=== PATIENT | male | born 1970 | race Caucasian/White ===

== ENCOUNTER 2016-07-31 14:47 | Observation (INO) | payer OTHER ==
[~2016-07-31] VITALS: Ht 182.9 cm; Wt 155.4 kg
[2016-07-31] VITALS (9 sets, daily range): BP systolic 103–155; BP diastolic 60–119; PULSE 77–99; RESP 18–20; TEMP 96.7–98.8; O2SAT 97–100
[~2016-07-31 14:47] MED LIST: ALBU6.7H INH; HYDR-3580 PO; LISI-360 PO; SYMB160A INH
[2016-07-31] MEDS ORDERED: AMLO10 PO (15:05)
[2016-07-31] MEDS ORDERED: ASPI-110 PO (15:05)
[2016-07-31] MEDS ORDERED: IPRASOL INH (15:05)
[2016-07-31] MEDS ORDERED: LISI10TA3 PO (15:05)
[2016-07-31] MEDS ORDERED: ASPIRIN 81 MG CHEW TAB PO ONE (15:15)
--- NOTE | 2016-07-31 15:20 | PD ---
HPI Chief Complaint: Chest Pain Time Seen by Provider: 15:08 Travel History International Travel<30 days: No Contact w/Intl Traveler<30days: No Traveled to known affect area: No History of Present Illness HPI 45-year-old male with history of hypertension, here for evaluation of substernal chest pain. The patient reports that the pain started about 1-2 hours ago while at rest. He describes the pain as sharp/pressure-like and radiates to his left chest. Pain is worse with exertion, currently 9 out of 10. He feels slight dyspnea. He is a former smoker, quitting 4 years ago. Denies known history of coronary artery disease. No paresthesias or motor deficits. History of DVT or PE. PFSH Past Medical History Asthma: Yes Blood Disorders: No Depression: Yes Cancer: No Cardiomyopathy: Yes Cardiovascular Problems: No Congestive Heart Failure: Yes COPD: Yes Diminished Hearing: No Gastrointestinal Disorders: No Genitourinary: No Headaches: Yes Musculoskeletal: Yes Neurologic: Yes Reproductive: No Respiratory: Yes (CHRONIC BRONCHITIS) Immunizations Current: Yes Migraines: Yes Seizures: Yes Influenza Vaccination: Yes PNEUMOCCOCAL Vaccine (Year): 2 Past Surgical History AICD: No Arteriovenous Shunt: No Body Medical Devices: IMPLANT FOR MIGRAINES Insulin Pump: No Joint Replacement: No Neurologic Surgery: Yes (BRAIN IMPLANT FOR MIGRAINES-HAS BEEN REMOVED) Pacemaker: No Other Surgery: Yes (REMOVAL OF BRAIN IMPLANT BECAUSE IT CAUSED SEIZURES) Social History Alcohol Use: No Tobacco Use: No Substance Use: No Allergies-Medications (Allergen,Severity, Reaction): Coded Allergies: Caffeine (Verified Allergy, Severe, RASH, 07/31/16) Codeine (Verified Allergy, Severe, Itching, 07/31/16) Darvon (Verified Allergy, Severe, ABD. CRAMS, 07/31/16) Reported Meds & Prescriptions Reported Meds & Active Scripts Active Reported Duoneb (Ipratropium-Albuterol Neb) 0.5-2.5 Mg/3 Ml Neb 1 Nebule INH Q6HR NEB Aspirin 81 (Aspirin) 81 Mg Tabdr 81 Mg PO DAILY Norvasc (Amlodipine Besylate) 10 Mg Tab 10 Mg PO DAILY Lisinopril 10 Mg Tab 10 Mg PO DAILY Review of Systems Except as stated in HPI: all other systems reviewed are Neg Physical Exam Narrative GENERAL: Well-developed, well-nourished, overweight, mild distress secondary to pain, no respiratory distress. SKIN: Focused skin assessment warm/dry. HEAD: Atraumatic. Normocephalic. EYES: Pupils equal and round. No scleral icterus. No injection or drainage. ENT: Mucous membranes pink and moist. NECK: Trachea midline. No JVD. CARDIOVASCULAR: Regular rate and rhythm. Distal pulses brisk and equal bilaterally. RESPIRATORY: No accessory muscle use. Clear to auscultation. Breath sounds equal bilaterally. GASTROINTESTINAL: Abdomen soft, non-tender, nondistended. MUSCULOSKELETAL: No obvious deformities. No clubbing. No cyanosis. No edema. Bilateral calves are supple, nontender. NEUROLOGICAL: Awake and alert. No obvious cranial nerve deficits. Motor grossly within normal limits. Normal speech. PSYCHIATRIC: Appropriate mood and affect; insight and judgment normal. Data Data Last Documented VS Vital Signs Date Time Temp Pulse Resp B/P Pulse Ox O2 Delivery O2 Flow Rate FiO2 07/31/16 16:00 77 18 103/77 97 Room Air 07/31/16 14:55 98.8 Orders Basic Metabolic Panel (Bmp) (07/31/16 15:15) Ckmb (Isoenzyme) Profile (07/31/16 15:15) Complete Blood Count With Diff (07/31/16 15:15) Magnesium (Mg) (07/31/16 15:15) Prothrombin Time / Inr (Pt) (07/31/16 15:15) Act Partial Throm Time (Ptt) (07/31/16 15:15) Troponin I (07/31/16 15:15) Chest, Single Ap (07/31/16 15:15) Ecg Monitoring (07/31/16 15:15) Bilateral Bp Monitoring (07/31/16 15:15) Iv Access Insert/Monitor (07/31/16 15:15) Oximetry (07/31/16 15:15) Oxygen Administration (07/31/16 15:15) Aspirin Chew (Aspirin Chew) (07/31/16 15:15) Sodium Chloride 0.9% Flush (Ns Flush) (07/31/16 15:15) Nitroglycerin Sl (Nitrostat Sl) (07/31/16 15:15) Electrocardiogram (07/31/16 14:50) Morphine Inj (Morphine Inj) (07/31/16 16:15) Ct Pulmonary Angiogram (07/31/16 16:08) B-Type Natriuretic Peptide (07/31/16 16:09) Labs Laboratory Tests Test 07/31/16 15:05 White Blood Count 8.5 TH/MM3 Red Blood Count 4.50 MIL/MM3 Hemoglobin 14.3 GM/DL Hematocrit 41.5 % Mean Corpuscular Volume 92.4 FL Mean Corpuscular Hemoglobin 31.7 PG Mean Corpuscular Hemoglobin 34.4 % Concent Red Cell Distribution Width 12.7 % Platelet Count 224 TH/MM3 Mean Platelet Volume 9.9 FL Neutrophils (%) (Auto) 64.1 % Lymphocytes (%) (Auto) 25.9 % Monocytes (%) (Auto) 7.3 % Eosinophils (%) (Auto) 2.0 % Basophils (%) (Auto) 0.7 % Neutrophils # (Auto) 5.4 TH/MM3 Lymphocytes # (Auto) 2.2 TH/MM3 Monocytes # (Auto) 0.6 TH/MM3 Eosinophils # (Auto) 0.2 TH/MM3 Basophils # (Auto) 0.1 TH/MM3 CBC Comment DIFF FINAL Differential Comment Prothrombin Time 11.4 SEC Prothromb Time International 1.0 RATIO Ratio Activated Partial 26.4 SEC Thromboplast Time Sodium Level 141 MEQ/L Potassium Level 3.8 MEQ/L Chloride Level 106 MEQ/L Carbon Dioxide Level 27.4 MEQ/L Anion Gap 8 MEQ/L Blood Urea Nitrogen 10 MG/DL Creatinine 0.90 MG/DL Estimat Glomerular Filtration 90 ML/MIN Rate Random Glucose 109 MG/DL Calcium Level 8.7 MG/DL Magnesium Level 2.0 MG/DL Total Creatine Kinase 64 U/L Troponin I LESS THAN 0.02 NG/ML MDM Medical Decision Making Medical Screen Exam Complete: Yes Emergency Medical Condition: Yes Medical Record Reviewed: Yes Interpretation(s) EKG: Sinus, rate 92, normal axis, normal intervals, no acute ischemic abnormality. Differential Diagnosis ACS, pneumothorax, pericarditis, PE, pneumonia Narrative Course Initial vital signs show heart rate 98, blood pressure 155/119, pulse ox 100% on room air, oral temp of 98.8F. CBC is unremarkable. BMP is unremarkable. Cardiac enzymes are negative. Chest x-ray: Mild interstitial edema with minimal cardiomegaly consistent with congestive failure. Patient is still complaining of substernal chest pain that is sharp and pleuritic despite receiving [address] pulmonary angiogram will be ordered to rule out PE. BNP was also ordered. Approximate 4:00 PM at the end of my shift the patient was signed out to oncoming provider Dr. Rubio who will follow up with CT pulmonary angiogram and will disposition the patient. Zack Mckeon MD July 31, 2016 15:20
[2016-07-31 15:34] LABS: AUTOMATED NEUTROPHIL # 5.4 TH/MM3 (1.8-7.7); BASOPHIL # 0.1 TH/MM3 (0-0.2); BASOPHIL % 0.7 % (0.0-2.0); EOSINOPHIL # 0.2 TH/MM3 (0-0.4); HEMATOCRIT 41.5 % (39.0-51.0); HEMO FLAGS DIFF FINAL; LYMPH % 25.9 % (9.0-44.0); LYMPHOCYTE # 2.2 TH/MM3 (1.0-4.8); MEAN CELL VOLUME 92.4 FL (80.0-100.0); MEAN CORPUSCULAR HEMOGLOBIN 31.7 PG (27.0-34.0); MEAN CORPUSCULAR HGB CONC 34.4 % (32.0-36.0); MONO % 7.3 % (0.0-8.0); NEUT % 64.1 % (16.0-70.0); PLATELET COUNT 224 TH/MM3 (150-450); RED CELL DISTRIBUTION WIDTH 12.7 % (11.6-17.2); WHITE BLOOD COUNT 8.5 TH/MM3 (4.0-11.0)
[2016-07-31] MEDS: NITROGLYCERIN 0.4 MG SL 25 TABS/BTL SL SCH ×3 (15:35→15:59)
[2016-07-31 15:51] LABS: CHLORIDE 106 MEQ/L (98-107); POTASSIUM 3.8 MEQ/L (3.5-5.1); SODIUM (NA) 141 MEQ/L (136-145)
--- NOTE | 2016-07-31 15:53 | RADHPO ---
EXAM DATE/TIME: 07/31/2016 15:45 [facility] COMPARISON: No previous studies available for comparison. INDICATIONS : Chest pain. MEDICAL HISTORY : Congestive heart failure. Chronic obstructive pulmonary disease. SURGICAL HISTORY : None. ENCOUNTER: Initial ACUITY: 1 day PAIN SCORE: 9/10 LOCATION: Bilateral chest FINDINGS: There is mild interstitial edema evident. There is minimal cardiomegaly. There is no pneumothorax. CONCLUSION: Mild interstitial edema with minimal cardiomegaly consistent with congestive failure. Kj Collazo MD FACR on July 31, 2016 at 15:50 Board Certified Radiologist. This report was verified electronically.
[2016-07-31 15:54] LABS: ANION GAP 8 MEQ/L (5-15); BICARBONATE 27.4 MEQ/L (21.0-32.0)
[2016-07-31 15:55] LABS: APTT (PATIENT) 26.4 SEC (24.3-30.1); BLOOD UREA NITROGEN 10 MG/DL (7-18); PROTHROMBIN TIME - PATIENT 11.4 SEC (9.8-11.6)
[2016-07-31 15:58] LABS: GLOMERULAR FILTRATION RATE 90 ML/MIN (>89)
[2016-07-31 16:02] LABS: CREATINE KINASE 64 U/L (39-308)
[2016-07-31] MEDS ORDERED: MORPHINE SULFATE 4 MG/ML INJ IV PUSH ONE (16:15)
[2016-07-31] MEDS ORDERED: ONDANSETRON HCL 4 MG/2 ML VIAL IV PUSH ONE (16:15)
[2016-07-31] MEDS: SODIUM CHLORIDE 0.9% FLUSH 10 ML FLUSH IVF PRN (16:16)
[2016-07-31] MEDS ORDERED: IOHEXOL 350 MG/ML 10 ML VIAL (for RAD DIAG) IV ONE (16:57)
--- NOTE | 2016-07-31 17:13 | RADHPO ---
EXAM DATE/TIME: 07/31/2016 16:43 [facility] COMPARISON: No previous studies available for comparison. INDICATIONS : Chest pain. IV CONTRAST: 80 cc Omnipaque 350 (iohexol) IV RADIATION DOSE: 21.73 CTDIvol (mGy) MEDICAL HISTORY : Congestive heart failure. Chronic obstructive pulmonary disease. Seizures. Asthma. SURGICAL HISTORY : None. ENCOUNTER: Initial ACUITY: 1 day PAIN SCALE: 5/10 LOCATION: Left chest TECHNIQUE: Volumetric scanning of the chest was performed using a pulmonary embolism protocol MIP images were re constructed. Using automated exposure control and adjustment of the mA and/or kV according to patien t size, radiation dose was kept as low as reasonably achievable to obtain optimal diagnostic quality images. FINDINGS: Scattered areas of pleural thickening are seen in the right lung. The left lung is clear. There is no axillary adenopathy. There is no mediastinal adenopathy. There is no evidence for central pulmonary emboli. Portion of the liver and spleen identified are free of focal defects. CONCLUSION: There is no evidence for central pulmonary emboli. Kj Collazo MD FACR on July 31, 2016 at 17:05 Board Certified Radiologist. This report was verified electronically.
--- NOTE | 2016-07-31 17:18 | PD ---
Physical Exam Date Seen by Provider: July 31, 2016 Time Seen by Provider: 17:17 Narrative This 45-year-old male had presented with complaint of chest pain. He was seen initially by Dr. gould. His EKG is unremarkable. Troponin is normal. There is a component pleuritic component to the pain and a CTA was ordered to assess for possible pulmonary embolus. A CTA has been read as negative. His chest x- ray has been read as possible CHF but his BNP is normal. Patient's pain has improved but he is still having some residual pain. He will be admitted to chest pain center for further evaluation Data Data Last Documented VS Vital Signs Date Time Temp Pulse Resp B/P Pulse Ox O2 Delivery O2 Flow Rate FiO2 07/31/16 16:00 77 18 103/77 97 Room Air 07/31/16 14:55 98.8 Orders Basic Metabolic Panel (Bmp) (07/31/16 15:15) Ckmb (Isoenzyme) Profile (07/31/16 15:15) Complete Blood Count With Diff (07/31/16 15:15) Magnesium (Mg) (07/31/16 15:15) Prothrombin Time / Inr (Pt) (07/31/16 15:15) Act Partial Throm Time (Ptt) (07/31/16 15:15) Troponin I (07/31/16 15:15) Chest, Single Ap (07/31/16 15:15) Ecg Monitoring (07/31/16 15:15) Bilateral Bp Monitoring (07/31/16 15:15) Iv Access Insert/Monitor (07/31/16 15:15) Oximetry (07/31/16 15:15) Oxygen Administration (07/31/16 15:15) Aspirin Chew (Aspirin Chew) (07/31/16 15:15) Sodium Chloride 0.9% Flush (Ns Flush) (07/31/16 15:15) Nitroglycerin Sl (Nitrostat Sl) (07/31/16 15:15) Electrocardiogram (07/31/16 14:50) Morphine Inj (Morphine Inj) (07/31/16 16:15) Ct Pulmonary Angiogram (07/31/16 16:08) B-Type Natriuretic Peptide (07/31/16 16:09) Ondansetron Inj (Zofran Inj) (07/31/16 16:15) Iohexol 350 Inj (Omnipaque 350 Inj) (07/31/16 16:57) Labs Laboratory Tests Test 07/31/16 15:05 White Blood Count 8.5 TH/MM3 Red Blood Count 4.50 MIL/MM3 Hemoglobin 14.3 GM/DL Hematocrit 41.5 % Mean Corpuscular Volume 92.4 FL Mean Corpuscular Hemoglobin 31.7 PG Mean Corpuscular Hemoglobin 34.4 % Concent Red Cell Distribution Width 12.7 % Platelet Count 224 TH/MM3 Mean Platelet Volume 9.9 FL Neutrophils (%) (Auto) 64.1 % Lymphocytes (%) (Auto) 25.9 % Monocytes (%) (Auto) 7.3 % Eosinophils (%) (Auto) 2.0 % Basophils (%) (Auto) 0.7 % Neutrophils # (Auto) 5.4 TH/MM3 Lymphocytes # (Auto) 2.2 TH/MM3 Monocytes # (Auto) 0.6 TH/MM3 Eosinophils # (Auto) 0.2 TH/MM3 Basophils # (Auto) 0.1 TH/MM3 CBC Comment DIFF FINAL Differential Comment Prothrombin Time 11.4 SEC Prothromb Time International 1.0 RATIO Ratio Activated Partial 26.4 SEC Thromboplast Time Sodium Level 141 MEQ/L Potassium Level 3.8 MEQ/L Chloride Level 106 MEQ/L Carbon Dioxide Level 27.4 MEQ/L Anion Gap 8 MEQ/L Blood Urea Nitrogen 10 MG/DL Creatinine 0.90 MG/DL Estimat Glomerular Filtration 90 ML/MIN Rate Random Glucose 109 MG/DL Calcium Level 8.7 MG/DL Magnesium Level 2.0 MG/DL Total Creatine Kinase 64 U/L Troponin I LESS THAN 0.02 NG/ML B-Type Natriuretic Peptide 35 PG/ML [facility] Medical Record Reviewed: Yes Supervised Visit with JOHN: Yes Differential Diagnosis Differential includes PE, chest wall pain, coronary artery disease, GERD Narrative Course EKG shows normal sinus rhythm. Troponin normal. BNP is normal. CTA does not show any central emboli Diagnosis Primary Impression: Chest pain Admitting Information Admitting Physician Requests: Observation Fausto Stahl MD July 31, 2016 17:18
[2016-07-31] MEDS: HEPARIN SODIUM - SQ 10,000 UNITS/ML VIAL SQ SCH (18:31)
[2016-07-31] MEDS: MORPHINE SULFATE 4 MG/ML INJ IV PUSH PRN (20:47)
[2016-07-31 21:35] LABS: CREATINE KINASE 51 U/L (39-308)
[2016-08-01 00:46] VITALS: BP 142/101; PULSE 75; RESP 16; TEMP 98; O2SAT 94
[2016-08-01] MEDS: MORPHINE SULFATE 4 MG/ML INJ IV PUSH PRN ×4 (01:08→14:08)
[2016-08-01] MEDS: HEPARIN SODIUM - SQ 10,000 UNITS/ML VIAL SQ SCH ×2 (03:25→09:06)
[2016-08-01 04:00] VITALS: BP 122/89; PULSE 67; RESP 18; TEMP 97.9; O2SAT 97
[2016-08-01 04:04] LABS: CREATINE KINASE 44 U/L (39-308)
[2016-08-01 04:36] LABS: HDL CHOLESTEROL 33.2 MG/DL (40.0-60.0)
[2016-08-01] MEDS: NITROGLYCERIN 2% OINT 1 GM PACKET TOPICAL SCH ×2 (05:50)
[2016-08-01 07:15] VITALS: PULSE 70
[2016-08-01] MEDS ORDERED: NITROGLYCERIN 0.4 MG SL 25 TABS/BTL SL PRN (07:45)
--- NOTE | 2016-08-01 07:51 | HHI.HP ---
[facility] [place] No Primary Care Physician Admission Diagnosis CHEST PAIN Diagnoses: (1) Chest pain Diagnosis: Principal (2) Hypertension Diagnosis: Secondary (3) Chronic obstructive pulmonary disease Diagnosis: Secondary Chief Complaint: Chest pain Travel History International Travel<30 Days: No Contact w/Intl Traveler <30 Da: No Traveled to Known Affected Are: No History of Present Illness 45 year-old male with known history of hypertension, chronic obstructive pulmonary disease who does not have a primary medical doctor presented to the hospital because of chest discomfort. Patient states that he is in normal state of health until 12 noon yesterday. He felt very fatigued and developed chest discomfort located in the left sternal border and left anterior chest radiating around to the left side of his chest. Patient states that is 8/10 on a pain scale. The patient came to emergency department for evaluation and he states that he was given nitroglycerin and morphine for the pain and the pain did reduce down to a 5/10 on a pain scale. Patient is actively having chest discomfort at this time. The patient indicates that he had associated nausea, shortness of breath, dyspnea, lightheadedness, dizziness , diaphoresis. The pain is reproducible on palpation along the left sternal border. Patient was recommended observation chest pain center by the ER physician. Review of Systems Constitutional: COMPLAINS OF: Diaphoretic episodes, DENIES: Fatigue, Fever, Weight gain, Weight loss, Chills, Dizziness, Change in appetite, Night Sweats Eyes: DENIES: Blurred vision, Diplopia, Eye inflammation, Eye pain, Vision loss , Double Vision Ears, nose, mouth, throat: DENIES: Vertigo, Nasal discharge, Throat pain, Ear Pain, Running Nose, Sinus Pain Respiratory: COMPLAINS OF: Shortness of breath, DENIES: Apneas, Cough, Snoring , Wheezing, Hemoptysis, Sputum production Cardiovascular: COMPLAINS OF: Chest pain, DENIES: Palpitations, Syncope, Dyspnea on Exertion, Lower Extremity Edema, Orthopnea Gastrointestinal: COMPLAINS OF: Nausea, DENIES: Abdominal pain, Black stools, Bloody stools, Constipation, Diarrhea, Vomiting, Difficulty Swallowing, Anorexia Neurologic: DENIES: Abnormal gait, Headache, Localized weakness, Paresthesias, Speech Problems, Tremor, Poor Balance Psychiatric: COMPLAINS OF: Anxiety, DENIES: Confusion, Mood changes, Depression Past Family Social History Past Medical History Hypertension Chronic obstructive pulmonary disease 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 CRAMS, 07/31/16) Family History Reviewed is significant for uncle with heart disease and multiple myocardial infarctions at early age Social History Patient quit smoking 4 years ago, prior to that he smoked one pack a cigarettes a day since he was 16 years old. He does drink alcohol socially. Denies any illicit drugs Physical Exam Vital Signs Vital Signs Date Time Temp Pulse Resp B/P Pulse Ox O2 Delivery O2 Flow Rate FiO2 08/01/16 04:00 97.9 67 18 122/89 97 08/01/16 00:46 98.0 75 16 142/101 94 07/31/16 23:40 99 Nasal Cannula 2.00 07/31/16 21:29 18 07/31/16 21:26 96.7 99 18 134/90 99 07/31/16 18:22 84 18 140/85 98 Room Air 07/31/16 18:04 97 21 07/31/16 16:00 77 18 103/77 97 Room Air 07/31/16 15:38 96 113/68 118/60 07/31/16 15:35 98 Room Air 07/31/16 15:35 98 Room Air 07/31/16 15:14 96 18 130/86 100 07/31/16 15:05 100 Room Air 07/31/16 14:55 98.8 98 20 155/119 100 Physical Exam GENERAL: Well-developed, obese with BMI 46.5, in no acute distress. alert and orientated HEENT: Head is normocephalic without any lesions or masses noted. Facial features are symmetric. Eyes: Pupils equal round reactive to light. Extraocular muscles are intact. Conjunctivae were clear. Oropharyngeal: Pharynx without any erythema edema. Tongue is midline without deviation. Buccal mucosa is moist without any masses or lesions NECK: Supple without any masses. Trachea midline no deviation. No JVD, no bruits are appreciated CARDIAC: Regular rhythm, regular rate. S1/S2 are heard. No murmurs gallops or rubs. Reproducible palpable tenderness noted along left sternal border and left anterior chest LUNGS: Clear to auscultation bilaterally. No wheeze, rhonchi or rales. No use of accessory muscles on inspiration or expiration. ABDOMEN: Soft, nontender. Nondistended. Bowel sounds heard in all 4 quadrants. No organomegaly or masses. Negative rebound, negative guarding EXTREMITIES: No edema, pulses are equal bilaterally. No cyanosis or clubbing NEUROLOGY: Mood and affect appear appropriate. Cranial nerves II through XII grossly intact. Muscle strength 5/5 in upper and lower extremities bilaterally. Deep tendon reflexes are 2+ in upper and lower extremities bilaterally. Laboratory Laboratory Tests Test 07/31/16 07/31/16 08/01/16 15:05 20:50 03:20 White Blood Count 8.5 Red Blood Count 4.50 Hemoglobin 14.3 Hematocrit 41.5 Mean Corpuscular Volume 92.4 Mean Corpuscular Hemoglobin 31.7 Mean Corpuscular Hemoglobin 34.4 Concent Red Cell Distribution Width 12.7 Platelet Count 224 Mean Platelet Volume 9.9 Neutrophils (%) (Auto) 64.1 Lymphocytes (%) (Auto) 25.9 Monocytes (%) (Auto) 7.3 Eosinophils (%) (Auto) 2.0 Basophils (%) (Auto) 0.7 Neutrophils # (Auto) 5.4 Lymphocytes # (Auto) 2.2 Monocytes # (Auto) 0.6 Eosinophils # (Auto) 0.2 Basophils # (Auto) 0.1 CBC Comment DIFF FINAL Differential Comment Prothrombin Time 11.4 Prothromb Time International 1.0 Ratio Activated Partial 26.4 Thromboplast Time Sodium Level 141 Potassium Level 3.8 Chloride Level 106 Carbon Dioxide Level 27.4 Anion Gap 8 Blood Urea Nitrogen 10 Creatinine 0.90 Estimat Glomerular Filtration 90 Rate Random Glucose 109 Calcium Level 8.7 Magnesium Level 2.0 Total Creatine Kinase 64 51 44 Troponin I LESS THAN 0.02 LESS THAN 0.02 LESS THAN 0.02 B-Type Natriuretic Peptide 35 Triglycerides Level 188 Cholesterol Level 121 LDL Cholesterol 50 HDL Cholesterol 33.2 Cholesterol/HDL Ratio 3.64 Result Diagram: 07/31/16 1505 07/31/[address] Angiography 07/31/16 1608 Signed Impressions: Service Date/Time: Sunday, July 31, 2016 16:43 - CONCLUSION: There is no evidence for central pulmonary emboli. Kj Collazo MD FACR Chest X-Ray 07/31/16 1515 Signed Impressions: Service Date/Time: Sunday, July 31, 2016 15:45 - CONCLUSION: Mild interstitial edema with minimal cardiomegaly consistent with congestive failure. Kj Collazo MD FACR Assessment and Plan Assessment and Plan Chest pain, atypical Patient with increased risk factors to include body habitus, hypertension, family history of heart disease Patient's pain is reproducible on palpation with point tenderness noted along left sternal border between the 3-5 intercostal space Chest x-ray showed mild interstitial edema, BMP was normal. Pulmonary angiogram was normal without any pulmonary emboli Serial cardiac enzymes were performed and have remained negative. Patient ruled out for an acute coronary event Serial EKGs were performed and reviewed by Dr. Schultz and showed sinus rhythm with nonspecific T-wave abnormalities without any changes We'll pursue nuclear stress test rule out any underlying ischemia, considering patient is actively having chest pain and receiving morphine every 4 hours Continue aspirin, nitroglycerin as needed, morphine for pain control Lipid panel was performed which showed LDL of 50 Hypertension Continue home medications DVT prevention Sequential compression devices Written by Jacinto Banegas, acting as scribe for Dr. Schultz on 08/01/16 at 07: 49. Discharge disposition Discharge home in stable condition Activity: Ad heavenly. Diet: Healthy heart diet Medications per medication reconciliation Follow-up primary medical doctor in one week Problem Qualifiers (1) Chest pain: Qualified Code: R07.9 - Chest pain, unspecified type (2) Hypertension: Qualified Code: I15.9 - Secondary hypertension (3) Chronic obstructive pulmonary disease: Qualified Code: J44.9 - Chronic obstructive pulmonary disease, unspecified COPD type Jacinto Banegas August 01, 2016 07:51 Ryan Schultz MD August 01, 2016 18:57
[2016-08-01 08:00] VITALS: BP 138/78; PULSE 88; RESP 17; TEMP 98.1; O2SAT 96
[2016-08-01] MEDS ORDERED: ASPIRIN EC 325 MG TABEC PO SCH (09:00)
[2016-08-01 09:52] LABS: CREATINE KINASE 38 U/L (39-308)
[2016-08-01] MEDS: SODIUM CHLORIDE 0.9% FLUSH 10 ML FLUSH IVF PRN ×2 (10:02→14:08)
[2016-08-01] MEDS ORDERED: REGADENOSON INJ 0.4 MG/5 ML SYR IV ONE (12:33)
--- NOTE | 2016-08-01 13:28 | RADHPO ---
EXAM DATE/TIME: 08/01/2016 11:58 [facility] COMPARISON: No previous studies available for comparison. INDICATIONS : Substernal chest pain radiating to left chest with dyspnea. Angina. DOSE: 35 mCi Tc99m Myoview at stress. 11 mCi Tc99m Myoview at rest. 0.4 mg Lexiscan STRESS SYMPTOMS: Dyspnea, chest pain and lightheadedness. EJECTION FRACTION: 50% MEDICAL HISTORY : Chronic obstructive pulmonary disease. Ex-smoker. SURGICAL HISTORY : Brain implant removed. ENCOUNTER: Initial ACUITY: 1 day PAIN SCALE: 9/10 LOCATION: Substernal chest TECHNIQUE: The patient underwent pharmacologic stress with infusion of prescribed dose. Continuous ECG tracing was monitored during stress. Gated SPECT imaging was performed after stress and conventional SPECT i maging was performed at rest. The examination was performed on a SPECT/CT scanner, both attenuation and non-corrected datasets were reviewed. FINDINGS: DISTRIBUTION: The maximum perfused segment at stress is in the septal wall. PERFUSION STUDY: The pattern of perfusion at stress is within normal limits. GATED STUDY: There is intact wall motion and thickening without hypokinetic or dyskinetic segments. CONCLUSION: No significant reversible perfusion defects to suggest ischemia. Normal ejection fraction. RISK CATEGORY: Low (<1% Annual Mortality Rate) Ehsan Christina MD on August 01, 2016 at 13:21 Board Certified Radiologist. This report was verified electronically.
--- NOTE | 2016-08-01 13:33 | HHI.DCPOC ---
Discharge Care Plan Diagnosis: (1) Chest pain Goals to Promote Your Health * To prevent worsening of your condition and complications * To maintain your health at the optimal level Directions to Meet Your Goals Take your medications as prescribed Follow your dietary instruction Follow activity as directed Keep your appointments as scheduled Take your immunizations and boosters as scheduled If your symptoms worsen call your PCP, if no PCP go to Urgent Care Center or Emergency Room Smoking is Dangerous to Your Health. Avoid second hand smoke Call the 24-hour hour crisis hotline for domestic abuse at Jacinto Banegas August 01, 2016 13:32
--- NOTE | 2016-08-01 13:34 | EKG ---
Date Performed: 08/01/2016 Time Performed: 02:43:38 PTAGE: 45 years EKG: Sinus rhythm Since previous tracing, no significant change noted Normal ECG PREVIOUS TRACING : 07/31/2016 20.33 DOCTOR: Wendy Jeffrey Interpretating Date/Time 08/01/2016 13:34:07
--- NOTE | 2016-08-01 13:34 | EKG ---
Date Performed: 07/31/2016 Time Performed: 20:33:36 PTAGE: 45 years EKG: Sinus rhythm Septal T wave changes are nonspecific Since previous tracing, no significant change noted Borderline ECG PREVIOUS TRACING : 07/31/2016 14.50 DOCTOR: Wendy Jeffrey Interpretating Date/Time 08/01/2016 13:33:47
--- NOTE | 2016-08-01 13:35 | EKG ---
Date Performed: 07/31/2016 Time Performed: 14:50:26 PTAGE: 45 years EKG: Sinus rhythm Since previous tracing, no significant change noted Normal ECG PREVIOUS TRACING : 03/20/2011 16.50 DOCTOR: Wendy Jeffrey Interpretating Date/Time 08/01/2016 13:34:45
--- NOTE | 2016-08-01 13:35 | EKG ---
Date Performed: 08/01/2016 Time Performed: 08:43:38 PTAGE: 45 years EKG: Sinus rhythm Since previous tracing, no significant change noted Normal ECG PREVIOUS TRACING : 08/01/2016 02.43 DOCTOR: Wendy Jeffrey Interpretating Date/Time 08/01/2016 13:34:27
[2016-08-01 14:15] VITALS: RESP 18
--- NOTE | 2016-08-01 17:07 | TR ---
Date Performed: 08/01/2016 Time Performed: 12:22:25 DOCTOR: Rolando Lewis DRUG LIST: CLINICAL HISTORY: REASON FOR TEST: Chest pain REASON FOR ENDING: OBSERVATION: CONCLUSION: Lexiscan stress test was performed under standard four minute protocol. Radionuclide was injected one minute prior to ending the test. Developed chest pain, dyspnea and lightheadedness. No electrocardiographic abnormalities were present to suggest ischemia. Recovery was quick and uneve ntful with resolution of symptoms. Nuclear imaging and interpretation are pending. COMMENTS:
== END 2016-08-01 15:30 | disposition home or self-care (01) ==
LOC: PHED 14:47 → PHEDA 17:36 → PH3A 18:52
PROVIDERS: ADMIT Hospitalist; ATTEND Hospitalist
DX: R07.89 Other chest pain (principal); J44.9 Chronic obstructive pulmonary disease, unspecified; I11.0 Hypertensive heart disease with heart failure; I50.9 Heart failure, unspecified; F32.9 Major depressive disorder, single episode, unspecified; I42.9 Cardiomyopathy, unspecified; Z79.82 Long term (current) use of aspirin; Z87.891 Personal history of nicotine dependence
CPT/HCPCS: 71010; 71275; 78452; 80048; 80061; 82550; 83735; 83880; 84484; 85025; 85610; 85730; 93005; 93017; 96374; 96375; 99285; A9502; G0378; J1644; J2270; J2405; J2785; Q9967

== ENCOUNTER 2016-08-19 22:00 | Emergency (ER) | payer OTHER ==
[~2016-08-19] VITALS: Ht 182.9 cm; Wt 154.0 kg
[~2016-08-19 22:00] MED LIST changes: -ALBU6.7H INH; +AMLO10 PO; +ASPI-110 PO; -HYDR-3580 PO; +IPRASOL INH; -LISI-360 PO; +LISI10TA3 PO; -SYMB160A INH
[2016-08-19 22:04] VITALS: BP 129/83; PULSE 89; RESP 18; TEMP 97.7; O2SAT 98
[2016-08-19] MEDS ORDERED: SODIUM CHLOR 0.9% 1000 ML INJ 1,000 ML IV SCH (22:27)
[2016-08-19] MEDS ORDERED: MORPHINE SULFATE 4 MG/ML INJ IV PUSH ONE (22:30)
[2016-08-19] MEDS ORDERED: SODIUM CHLORIDE 0.9% FLUSH 10 ML FLUSH IV FLUSH PRN (22:30)
[2016-08-19] MEDS ORDERED: ONDANSETRON HCL 4 MG/2 ML VIAL IVP ONE (22:30)
--- NOTE | 2016-08-19 22:32 | PD ---
HPI Chief Complaint: Abdominal Pain Time Seen by Provider: 22:23 Travel History International Travel<30 days: No Contact w/Intl Traveler<30days: No Traveled to known affect area: No History of Present Illness HPI 45-year-old male here for evaluation of left lower quadrant abdominal pain. Patient reports that the pain is been worsening over the last 2 days. Pain is described as sharp, constant, moderate to severe, worse with movement and palpation. He denies trauma. No history of abdominal surgeries. No nausea or vomiting. Normal bowel movements. No constipation. No fevers or chills. Chart review shows that the patient was admitted 2 weeks ago with complaints of chest pain. At that time he had an unremarkable myocardial perfusion scan as well as a CT pulmonary angiogram that was negative for PE. PFSH Past Medical History Asthma: Yes Autoimmune Disease: No Blood Disorders: No Anxiety: No Depression: Yes Cancer: No Cardiomyopathy: Yes Cardiovascular Problems: No Congestive Heart Failure: Yes COPD: Yes Diminished Hearing: No Endocrine: No Gastrointestinal Disorders: No Genitourinary: No Headaches: Yes Hypertension: Yes Immune Disorder: No Musculoskeletal: Yes Neurologic: Yes Psychiatric: Yes Reproductive: No Respiratory: Yes (CHRONIC BRONCHITIS) Immunizations Current: Yes Migraines: Yes Seizures: Yes Influenza Vaccination: Yes PNEUMOCCOCAL Vaccine (Year): 2 Past Surgical History Abdominal Surgery: No AICD: No Arteriovenous Shunt: No Body Medical Devices: IMPLANT FOR MIGRAINES none now Cardiac Surgery: No Cholecystectomy: Yes Ear Surgery: No Endocrine Surgery: No Eye Surgery: No Genitourinary Surgery: No Gynecologic Surgery: No Insulin Pump: No Joint Replacement: No Neurologic Surgery: Yes (BRAIN IMPLANT FOR MIGRAINES-HAS BEEN REMOVED) Oral Surgery: No Pacemaker: No Thoracic Surgery: No Other Surgery: Yes (REMOVAL OF BRAIN IMPLANT BECAUSE IT CAUSED SEIZURES) Social History Alcohol Use: No Tobacco Use: No (QUIT AGE 40) Substance Use: No Allergies-Medications (Allergen,Severity, Reaction): Coded Allergies: Caffeine (Verified Allergy, Severe, RASH, 08/19/16) Codeine (Verified Allergy, Severe, Itching, 08/19/16) Darvon (Verified Allergy, Severe, ABD. CRAMS, 08/19/16) Reported Meds & Prescriptions Reported Meds & Active Scripts Active Reported Duoneb (Ipratropium-Albuterol Neb) 0.5-2.5 Mg/3 Ml Neb 1 Nebule INH Q6HR NEB Aspirin 81 (Aspirin) 81 Mg Tabdr 81 Mg PO DAILY Norvasc (Amlodipine Besylate) 10 Mg Tab 10 Mg PO DAILY Lisinopril 10 Mg Tab 10 Mg PO DAILY Review of Systems Except as stated in HPI: all other systems reviewed are Neg Physical Exam Narrative GENERAL: Well-developed, well-nourished, overweight, comfortable, no acute distress. SKIN: Focused skin assessment warm/dry. No rash. HEAD: Atraumatic. Normocephalic. EYES: Pupils equal and round. No scleral icterus. No injection or drainage. ENT: Mucous membranes pink and moist. CARDIOVASCULAR: Regular rate and rhythm. No murmur appreciated. RESPIRATORY: No accessory muscle use. Clear to auscultation. Breath sounds equal bilaterally. GASTROINTESTINAL: Abdomen soft, round, nondistended. Moderate left lower quadrant tenderness without peritoneal signs. Rest of abdomen is soft and nontender. Normal bowel sounds. No hernias. : Normal exam. No testicular swelling or tenderness. No skin color changes. No hernias. MUSCULOSKELETAL: No obvious deformities. No clubbing. No cyanosis. No edema. NEUROLOGICAL: Awake and alert. No obvious cranial nerve deficits. Motor grossly within normal limits. Normal speech. PSYCHIATRIC: Appropriate mood and affect; insight and judgment normal. Data Data Last Documented VS Vital Signs Date Time Temp Pulse Resp B/P Pulse Ox O2 Delivery O2 Flow Rate FiO2 08/19/16 23:02 80 16 99 Room Air 08/19/16 22:04 97.7 129/83 Orders Complete Blood Count With Diff (08/19/16 22:27) Comprehensive Metabolic Panel (08/19/16 22:27) Lipase (08/19/16 22:27) Prothrombin Time / Inr (Pt) (08/19/16 22:27) Act Partial Throm Time (Ptt) (08/19/16 22:27) Urinalysis - C+S If Indicated (08/19/16 22:27) Ct Abd/Pel W Iv Contrast(Rout) (08/19/16 22:27) Iv Access Insert/Monitor (08/19/16 22:27) Ecg Monitoring (08/19/16 22:27) Oximetry (08/19/16 22:27) Morphine Inj (Morphine Inj) (08/19/16 22:30) Ondansetron Inj (Zofran Inj) (08/19/16 22:30) Sodium Chlor 0.9% 1000 Ml Inj (Ns 1000 M (08/19/16 22:27) Sodium Chloride 0.9% Flush (Ns Flush) (08/19/16 22:30) Iohexol 350 Inj (Omnipaque 350 Inj) (08/19/16 22:56) Labs Laboratory Tests Test 08/19/16 08/19/16 22:35 22:40 Urine Color YELLOW Urine Turbidity CLEAR Urine pH 5.5 Urine Specific [place] 1.030 Urine Protein NEG mg/dL Urine Glucose (UA) NEG mg/dL Urine Ketones NEG mg/dL Urine Occult Blood NEG Urine Nitrite NEG Urine Bilirubin NEG Urine Leukocyte Esterase NEG Urine WBC 0-2 /hpf Urine Squamous Epithelial 0-5 /hpf Cells Microscopic Urinalysis Comment CULT NOT INDICATED White Blood Count 10.1 TH/MM3 Red Blood Count 4.48 MIL/MM3 Hemoglobin 14.5 GM/DL Hematocrit 41.8 % Mean Corpuscular Volume 93.3 FL Mean Corpuscular Hemoglobin 32.4 PG Mean Corpuscular Hemoglobin 34.7 % Concent Red Cell Distribution Width 12.0 % Platelet Count 230 TH/MM3 Mean Platelet Volume 10.2 FL Neutrophils (%) (Auto) 55.0 % Lymphocytes (%) (Auto) 28.5 % Monocytes (%) (Auto) 8.7 % Eosinophils (%) (Auto) 3.8 % Basophils (%) (Auto) 4.0 % Neutrophils # (Auto) 5.5 TH/MM3 Lymphocytes # (Auto) 2.9 TH/MM3 Monocytes # (Auto) 0.9 TH/MM3 Eosinophils # (Auto) 0.4 TH/MM3 Basophils # (Auto) 0.4 TH/MM3 CBC Comment DIFF FINAL Differential Comment Prothrombin Time 10.6 SEC Prothromb Time International 1.0 RATIO Ratio Activated Partial 27.4 SEC Thromboplast Time Sodium Level 139 MEQ/L Potassium Level 3.8 MEQ/L Chloride Level 106 MEQ/L Carbon Dioxide Level 26.5 MEQ/L Anion Gap 7 MEQ/L Blood Urea Nitrogen 12 MG/DL Creatinine 0.76 MG/DL Estimat Glomerular Filtration 110 ML/MIN Rate Random Glucose 97 MG/DL Calcium Level 9.5 MG/DL Total Bilirubin 0.8 MG/DL Aspartate Amino Transf 22 U/L (AST/SGOT) Alanine Aminotransferase 60 U/L (ALT/SGPT) Alkaline Phosphatase 122 U/L Total Protein 7.7 GM/DL Albumin 4.0 GM/DL Lipase 174 U/L [facility] Medical Decision Making Medical Screen Exam Complete: Yes Emergency Medical Condition: Yes Medical Record Reviewed: Yes Differential Diagnosis Colitis, diverticulitis, cystitis, inguinal hernia, musculoskeletal pain Narrative Course Vital signs show heart rate 89, blood pressure 129/83, pulse ox 98% on room air , oral temp of 97.7F. CBC is unremarkable. CMP is unremarkable. Lipase is 174. UA is unremarkable, not suggestive of UTI. CT abdomen pelvis: CONCLUSION: Small lung base nodules will need to be followed. No acute CT findings in the abdomen or pelvis. Patient was made aware of all findings. He is resting comfortably. He is feeling a lot better after receiving morphine and receiving CT abdomen pelvis report with no acute findings. There are no peritoneal signs on exam. He feels well enough to be discharged home. He is stable for discharge home with outpatient follow-up with a primary care physician this week. I stressed the importance of follow-up with the pulmonary nodules. He states he is a former smoker, quitting 5 years ago. He was informed on when to return to the emergency department. He verbalizes understanding and agreement with plan. Diagnosis Primary Impression: Abdominal pain Qualified Code: R10.32 - Left lower quadrant pain Additional Impression: Pulmonary nodules Referrals: Primary Care Physician 3 days Additional Instructions: Follow-up with a primary care physician this week. Return to the emergency department for worsening symptoms or any other concerns. Scripts Tramadol 50 Mg Tab50 Mg PO Q6H PRN (PAIN) #15 TAB Ref 0 Prov:Zack Mckeon MD 08/20/16 Disposition: 01 DISCHARGE HOME Condition: Stable Zack Mckeon MD August 19, 2016 22:32
[2016-08-19 22:47] LABS: AUTOMATED NEUTROPHIL # 5.5 TH/MM3 (1.8-7.7); BASOPHIL # 0.4 TH/MM3 (0-0.2); EOSINOPHIL # 0.4 TH/MM3 (0-0.4); EOSINOPHIL % 3.8 % (0.0-4.0); HEMATOCRIT 41.8 % (39.0-51.0); HEMO FLAGS DIFF FINAL; LYMPH % 28.5 % (9.0-44.0); LYMPHOCYTE # 2.9 TH/MM3 (1.0-4.8); MEAN CELL VOLUME 93.3 FL (80.0-100.0); MEAN CORPUSCULAR HEMOGLOBIN 32.4 PG (27.0-34.0); MEAN CORPUSCULAR HGB CONC 34.7 % (32.0-36.0); MONO % 8.7 % (0.0-8.0); PLATELET COUNT 230 TH/MM3 (150-450); RED BLOOD COUNT 4.48 MIL/MM3 (4.50-5.90); WHITE BLOOD COUNT 10.1 TH/MM3 (4.0-11.0)
[2016-08-19 22:48] LABS: BLOOD, URINE NEG (NEG); GLUCOSE,URINE NEG (NEG); KETONE, URINE NEG (NEG); NITRITE,URINE NEG (NEG); PH, URINE 5.5 (5.0-8.5)
[2016-08-19 22:55] LABS: COMMENT (UR) CULT NOT INDICATED; CULTURE IF INDICATED CULT NOT INDICATED; SQUAMOUS EPITHELIAL CELL URINE 0-5 /hpf (0-5); URINE COLOR YELLOW (YELLW/STRAW); WBC, URINE 0-2 /hpf (0-5)
[2016-08-19] MEDS ORDERED: IOHEXOL 350 MG/ML 10 ML VIAL (for RAD DIAG) IV ONE (22:56)
[2016-08-19 22:57] LABS: CHLORIDE 106 MEQ/L (98-107); POTASSIUM 3.8 MEQ/L (3.5-5.1); SODIUM (NA) 139 MEQ/L (136-145)
[2016-08-19 23:01] LABS: ANION GAP 7 MEQ/L (5-15); BICARBONATE 26.5 MEQ/L (21.0-32.0); BLOOD UREA NITROGEN 12 MG/DL (7-18)
[2016-08-19 23:02] VITALS: PULSE 80; RESP 16; O2SAT 99
[2016-08-19 23:04] LABS: ALT (GPT) 60 U/L (12-78); AST (GOT) 22 U/L (15-37); GLOMERULAR FILTRATION RATE 110 ML/MIN (>89)
[2016-08-19 23:05] LABS: TOTAL BILIRUBIN ADULT 0.8 MG/DL (0.2-1.0)
[2016-08-19 23:07] LABS: ALKALINE PHOSPHATASE 122 U/L (45-117)
[2016-08-19 23:10] LABS: APTT (PATIENT) 27.4 SEC (24.3-30.1); PROTHROMBIN TIME - PATIENT 10.6 SEC (9.8-11.6)
--- NOTE | 2016-08-19 23:11 | RADHPO ---
EXAM DATE/TIME: 08/19/2016 22:46 [facility] COMPARISON: CT PULMONARY ANGIOGRAM, July 31, 2016, 16:43. INDICATIONS : Left lower quadrant abdominal pain. IV CONTRAST: 100 cc Omnipaque 350 (iohexol) IV ORAL CONTRAST: No oral contrast ingested. RADIATION DOSE: 29.13 CTDIvol (mGy) MEDICAL HISTORY : Congestive heart failure. Hypertension. SURGICAL HISTORY : Cholecystectomy. ENCOUNTER: Initial ACUITY: 1 day PAIN SCALE: 8/10 LOCATION: Left lower quadrant abdomen TECHNIQUE: Volumetric scanning of the abdomen and pelvis was performed. Using automated exposure control and ad justment of the mA and/or kV according to patient size, radiation dose was kept as low as reasonably achievable to obtain optimal diagnostic quality images. FINDINGS: LOWER LUNGS: A 1 cm subpleural nodule is seen in the posterolateral right lung base. A 4 mm nodule is present in t he posterior right lung base. A 5 mm nodule is present in the posterior left lung base. These finding s were present previously but will need to be followed. LIVER: Homogeneous density without lesion. There is no dilation of the biliary tree. No calcified gallston es. SPLEEN: Normal size without lesion. PANCREAS: Within normal limits. KIDNEYS: Normal in size and shape. There is no mass, stone or hydronephrosis. ADRENAL GLANDS: Within normal limits. VASCULAR: There is no aortic aneurysm. BOWEL/MESENTERY: Distal colonic diverticula. No evidence of abnormal dilatation, wall thickening or focal inflammatory changes. ABDOMINAL WALL: Within normal limits. RETROPERITONEUM: There is no lymphadenopathy. BLADDER: No wall thickening or mass. REPRODUCTIVE: Within normal limits. INGUINAL: There is no lymphadenopathy or hernia. MUSCULOSKELETAL: Within normal limits for patient age. CONCLUSION: Small lung base nodules will need to be followed. No acute CT findings in the abdomen or pelvis. Dickson Cunha MD on August 19, 2016 at 23:04 Board Certified Radiologist. This report was verified electronically.
[2016-08-20] MEDS ORDERED: TRAM50TA PO
[2016-08-20 00:02] VITALS: BP 120/82
== END 2016-08-20 00:04 | disposition home or self-care (01) ==
LOC: PHED 22:00
DX: R10.32 Left lower quadrant pain (principal); R91.1 Solitary pulmonary nodule; J45.909 Unspecified asthma, uncomplicated; I50.9 Heart failure, unspecified; J44.9 Chronic obstructive pulmonary disease, unspecified; I10 Essential (primary) hypertension; I42.9 Cardiomyopathy, unspecified; F32.9 Major depressive disorder, single episode, unspecified; Z87.891 Personal history of nicotine dependence
CPT/HCPCS: 74177; 80053; 81001; 83690; 85025; 85610; 85730; 96361; 96374; 96375; 99285; J2270; J2405; J7030; Q9967

== ENCOUNTER 2016-08-22 11:27 | Emergency (ER) | payer OTHER ==
[~2016-08-22] VITALS: Ht 182.9 cm; Wt 153.0 kg
[~2016-08-22 11:27] MED LIST changes: +TRAM50TA PO
[2016-08-22 11:28] VITALS: BP 108/79; PULSE 84; RESP 19; TEMP 97.5; O2SAT 100
--- NOTE | 2016-08-22 12:18 | PD ---
HPI Chief Complaint: Abdominal Pain Time Seen by Provider: 11:54 Travel History International Travel<30 days: No Contact w/Intl Traveler<30days: No Traveled to known affect area: No History of Present Illness HPI 45 yo M complains of abdominal pain primarily in the LLQ for a few days. He was seen here and evaluated for the same complaint a few days prior. Extensive work up including CT abdomen/pelvis was normal, aside from incidental diverticula and lung base nodules. BMs normal. Occasional nausea reported. No vomiting. No fever. Appetite normal. PFSH Past Medical History Asthma: Yes Autoimmune Disease: No Blood Disorders: No Anxiety: No Depression: Yes Cancer: No Cardiomyopathy: Yes Cardiovascular Problems: No Congestive Heart Failure: Yes COPD: Yes Diminished Hearing: No Endocrine: No Gastrointestinal Disorders: No Genitourinary: No Headaches: Yes Hypertension: Yes Immune Disorder: No Implanted Vascular Access Dvce: Yes Musculoskeletal: Yes Neurologic: Yes Psychiatric: Yes Reproductive: No Respiratory: Yes (CHRONIC BRONCHITIS) Immunizations Current: Yes Migraines: Yes Seizures: Yes PNEUMOCCOCAL Vaccine (Year): 2 ?: Not Past Surgical History Abdominal Surgery: No AICD: No Arteriovenous Shunt: No Body Medical Devices: IMPLANT FOR MIGRAINES none now Cardiac Surgery: No Cholecystectomy: Yes Ear Surgery: No Endocrine Surgery: No Eye Surgery: No Genitourinary Surgery: No Gynecologic Surgery: No Insulin Pump: No Joint Replacement: No Neurologic Surgery: Yes (BRAIN IMPLANT FOR MIGRAINES-HAS BEEN REMOVED) Oral Surgery: No Pacemaker: No Thoracic Surgery: No Other Surgery: Yes (REMOVAL OF BRAIN IMPLANT BECAUSE IT CAUSED SEIZURES) Social History Alcohol Use: No Tobacco Use: No (QUIT AGE 40) Substance Use: No Allergies-Medications (Allergen,Severity, Reaction): Coded Allergies: Caffeine (Verified Allergy, Severe, RASH, 08/22/16) Codeine (Verified Allergy, Severe, Itching, 08/22/16) Darvon (Verified Allergy, Severe, ABD. CRAMS, 08/22/16) Reported Meds & Prescriptions Reported Meds & Active Scripts Active Tramadol (Tramadol HCl) 50 Mg Tab 50 Mg PO Q6H PRN Reported Duoneb (Ipratropium-Albuterol Neb) 0.5-2.5 Mg/3 Ml Neb 1 Nebule INH Q6HR NEB Aspirin 81 (Aspirin) 81 Mg Tabdr 81 Mg PO DAILY Norvasc (Amlodipine Besylate) 10 Mg Tab 10 Mg PO DAILY Lisinopril 10 Mg Tab 10 Mg PO DAILY Review of Systems Except as stated in HPI: all other systems reviewed are Neg General / Constitutional: No: Fever Gastrointestinal: Positive: Nausea, Abdominal Pain, No: Vomiting, Diarrhea Physical Exam Narrative GENERAL: 45 yo M, WNWD, mild distress SKIN: Warm and dry. HEAD: Atraumatic. Normocephalic. EYES: Pupils equal and round. No scleral icterus. No injection or drainage. ENT: No nasal bleeding or discharge. Mucous membranes pink and moist. NECK: Trachea midline. No JVD. CARDIOVASCULAR: Regular rate and rhythm. RESPIRATORY: No accessory muscle use. Clear to auscultation. Breath sounds equal bilaterally. GASTROINTESTINAL: Old ecchymosis LLQ 2/2 heparin injection from [facility] admission. Abdomen soft though somewhat non-specific 2/2 habitus. No rebound. MUSCULOSKELETAL: Extremities without clubbing, cyanosis, or edema. No obvious deformities. NEUROLOGICAL: Awake and alert. No obvious cranial nerve deficits. Motor grossly within normal limits. Five out of 5 muscle strength in the arms and legs. Normal speech. PSYCHIATRIC: Appropriate mood and affect; insight and judgment normal. Data Data Last Documented VS Vital Signs Date Time Temp Pulse Resp B/P Pulse Ox O2 Delivery O2 Flow Rate FiO2 08/22/16 11:28 97.5 84 19 108/79 100 VS reviewed Orders Acetamin-Hydrocod 325-5 Mg ([place] 5-325 (08/22/16 12:45) MDM Medical Decision Making Medical Screen Exam Complete: Yes Emergency Medical Condition: Yes Medical Record Reviewed: Yes Differential Diagnosis Constipation, Gastritis, Acute Cholecystitis, Biliary Colic, Pancreatitis, SOTELO , Hepatitis, Bowel Obstruction, Cystitis, Mesenteric Ischemia, AAA, Appendicitis , Renal Stone/Hydronephrosis, GERD, perforated viscous Narrative Course With a workup performed 3 days ago which included a CBC, CMP, lipase urinalysis and CT abdomen and pelvis with contrast 5 days ago and is considered overutilization in this scenario to repeat the same workup for the same symptoms. Specific etiology of the patient's pain is unclear. Likelihood of a surgical emergency is considered very low as is need for repeat work up at this time. One dose Lortab provided here. Diagnosis Primary Impression: Abdominal pain Qualified Code: R10.32 - Left lower quadrant pain Referrals: Koby Burns MD call for appointment Additional Instructions: You have a choice when it comes to health care, and we are glad that you chose [facility]. Hopefully, we have met your expectations on today's visit. You are welcome to return to [facility] at any time, as we are committed to meeting the health care needs of our community. Med/Other Pt SpecificInfo: No Change to Meds Disposition: 01 DISCHARGE HOME Condition: Stable Rocco Roy MD Aug 22, 2016 12:18 Rocco Roy MD Aug 22, 2016 12:18
[2016-08-22] MEDS ORDERED: ACETAMINOPHEN/HYDROcodone 325 MG/5 MG TAB PO ONE (12:45)
== END 2016-08-22 14:08 | disposition home or self-care (01) ==
LOC: PHED 11:27
DX: R10.32 Left lower quadrant pain (principal); J45.909 Unspecified asthma, uncomplicated; I42.9 Cardiomyopathy, unspecified; I50.9 Heart failure, unspecified; J44.9 Chronic obstructive pulmonary disease, unspecified; I10 Essential (primary) hypertension; Z87.891 Personal history of nicotine dependence
CPT/HCPCS: 99282

== ENCOUNTER 2016-09-28 18:13 | Emergency (ER) | payer OTHER ==
[2016-09-28] VITALS (7 sets, daily range): BP systolic 110–133; BP diastolic 65–94; PULSE 78–108; RESP 18–24; TEMP 98.4–99; O2SAT 97–100
[~2016-09-28] VITALS: Ht 182.9 cm; Wt 153.4 kg
[2016-09-28] MEDS ORDERED: ONDANSETRON HCL 4 MG/2 ML VIAL IV PUSH ONE (18:30)
[2016-09-28] MEDS ORDERED: SODIUM CHLORIDE 0.9% FLUSH 10 ML FLUSH IVF PRN (18:30)
[2016-09-28] MEDS ORDERED: LORazepam 2 MG/ML VIAL IV PUSH PRN (18:30)
[2016-09-28] MEDS ORDERED: MORPHINE SULFATE 8 MG/ML INJ IV PUSH ONE (18:30)
[2016-09-28] MEDS ORDERED: MORPHINE SULFATE 4 MG/ML INJ IV PUSH ONE (18:30)
[2016-09-28] MEDS ORDERED: ASPIRIN 325 MG TAB PO ONE (18:30)
[2016-09-28 18:35] LABS: AUTOMATED NEUTROPHIL # 8.4 TH/MM3 (1.8-7.7); BASOPHIL # 0.1 TH/MM3 (0-0.2); BASOPHIL % 0.8 % (0.0-2.0); EOSINOPHIL # 0.3 TH/MM3 (0-0.4); EOSINOPHIL % 2.7 % (0.0-4.0); HEMATOCRIT 45.7 % (39.0-51.0); HEMO FLAGS DIFF FINAL; LYMPH % 22.5 % (9.0-44.0); LYMPHOCYTE # 2.8 TH/MM3 (1.0-4.8); MEAN CELL VOLUME 91.6 FL (80.0-100.0); MEAN CORPUSCULAR HGB CONC 33.9 % (32.0-36.0); MONO % 7.1 % (0.0-8.0); NEUT % 66.9 % (16.0-70.0); PLATELET COUNT 272 TH/MM3 (150-450); RED BLOOD COUNT 4.98 MIL/MM3 (4.50-5.90); RED CELL DISTRIBUTION WIDTH 11.8 % (11.6-17.2); WHITE BLOOD COUNT 12.5 TH/MM3 (4.0-11.0)
--- NOTE | 2016-09-28 18:43 | PD ---
HPI Chief Complaint: Chest Pain Time Seen by Provider: 18:19 Travel History International Travel<30 days: No Contact w/Intl Traveler<30days: No Traveled to known affect area: No History of Present Illness HPI 45 year old male with a history of CHF presents complaining of chest pain that started 30 minutes prior to arrival. Pain is over the left side of his chest and he describes it as a sharp, stabbing pain. No radiation. Reports that it hurts to breathe. He was walking to the store when it started. No known aggravating or alleviating factors. Rates the pain as a 10/10. PFSH Past Medical History Asthma: Yes Autoimmune Disease: No Blood Disorders: No Anxiety: No Depression: Yes Cancer: No Cardiomyopathy: Yes Cardiovascular Problems: Yes Congestive Heart Failure: Yes COPD: Yes Diminished Hearing: No Endocrine: No Gastrointestinal Disorders: No Genitourinary: No Headaches: Yes Hypertension: Yes Immune Disorder: No Implanted Vascular Access Dvce: Yes Musculoskeletal: Yes Neurologic: Yes Psychiatric: Yes Reproductive: No Respiratory: Yes (CHRONIC BRONCHITIS) Immunizations Current: Yes Migraines: Yes Seizures: Yes PNEUMOCCOCAL Vaccine (Year): 2 Past Surgical History Abdominal Surgery: No AICD: No Arteriovenous Shunt: No Body Medical Devices: IMPLANT FOR MIGRAINES none now Cardiac Surgery: No Cholecystectomy: Yes Ear Surgery: No Endocrine Surgery: No Eye Surgery: No Genitourinary Surgery: No Gynecologic Surgery: No Insulin Pump: No Joint Replacement: No Neurologic Surgery: Yes (BRAIN IMPLANT FOR MIGRAINES-HAS BEEN REMOVED) Oral Surgery: No Pacemaker: No Thoracic Surgery: No Other Surgery: Yes (REMOVAL OF BRAIN IMPLANT BECAUSE IT CAUSED SEIZURES) Social History Alcohol Use: No Tobacco Use: No (QUIT AGE 40) Substance Use: No Allergies-Medications (Allergen,Severity, Reaction): Coded Allergies: Caffeine (Verified Allergy, Severe, RASH, 09/28/16) Codeine (Verified Allergy, Severe, Itching, 09/28/16) Darvon (Verified Allergy, Severe, ABD. CRAMS, 09/28/16) Reported Meds & Prescriptions Reported Meds & Active Scripts Active Ibuprofen 800 Mg Tab 800 Mg PO Q8H PRN Flexeril (Cyclobenzaprine HCl) 10 Mg Tab 10 Mg PO TID Reported Multi-Vitamin Daily (Multiple Vitamin) 1 Tab Tab 1 Tab PO DAILY Duoneb (Ipratropium-Albuterol Neb) 0.5-2.5 Mg/3 Ml Neb 1 Nebule INH Q6HR NEB Aspirin 81 (Aspirin) 81 Mg Tabdr 81 Mg PO DAILY Norvasc (Amlodipine Besylate) 10 Mg Tab 10 Mg PO DAILY Lisinopril 10 Mg Tab 10 Mg PO DAILY Review of Systems General / Constitutional: No: Fever, Chills Cardiovascular: Positive: Chest Pain or Discomfort, Tachycardia, No: Diaphoresis Respiratory: Positive: Shortness of Breath, No: Wheezing Physical Exam Narrative GENERAL: awake and alert male, appears to be in distress. SKIN: Warm and dry. HEAD: Atraumatic. Normocephalic. EYES: Pupils equal and round. ENT: No nasal bleeding or discharge. Mucous membranes pink and moist. NECK: Trachea midline. CARDIOVASCULAR: Regular rate and rhythm. No murmurs. RESPIRATORY: Tachypneic. Accessory muscle use. Lungs clear to auscultation bilaterally. Good air movement throughout. No wheezing. GASTROINTESTINAL: Abdomen soft, non-tender, nondistended. MUSCULOSKELETAL: No obvious deformities. No edema. NEUROLOGICAL: Awake and alert. No obvious cranial nerve deficits. Motor grossly within normal limits. Normal speech. PSYCHIATRIC: Appropriate mood and affect; insight and judgment normal. Data Data Last Documented VS Vital Signs Date Time Temp Pulse Resp B/P Pulse Ox O2 Delivery O2 Flow Rate FiO2 09/28/16 19:25 78 18 110/68 99 Room Air 09/28/16 19:05 99.0 Orders Electrocardiogram (09/28/16 18:19) Basic Metabolic Panel (Bmp) (09/28/16 18:19) Ckmb (Isoenzyme) Profile (09/28/16 18:19) Complete Blood Count With Diff (09/28/16 18:19) D-Dimer (09/28/16 18:19) Magnesium (Mg) (09/28/16 18:19) Prothrombin Time / Inr (Pt) (09/28/16 18:19) Act Partial Throm Time (Ptt) (09/28/16 18:19) Troponin I (09/28/16 18:19) Chest, Single Ap (09/28/16 18:19) Ecg Monitoring (09/28/16 18:19) Iv Access Insert/Monitor (09/28/16 18:19) Oximetry (09/28/16 18:19) Oxygen Administration (09/28/16 18:19) Aspirin (Aspirin) (09/28/16 18:30) Morphine Inj (Morphine Inj) (09/28/16 18:30) Sodium Chloride 0.9% Flush (Ns Flush) (09/28/16 18:30) Ondansetron Inj (Zofran Inj) (09/28/16 18:30) Morphine Inj (Morphine Inj) (09/28/16 18:30) Lorazepam Inj (Ativan Inj) (09/28/16 18:30) Labs Laboratory Tests Test 09/28/16 18:20 White Blood Count 12.5 TH/MM3 Red Blood Count 4.98 MIL/MM3 Hemoglobin 15.5 GM/DL Hematocrit 45.7 % Mean Corpuscular Volume 91.6 FL Mean Corpuscular Hemoglobin 31.0 PG Mean Corpuscular Hemoglobin 33.9 % Concent Red Cell Distribution Width 11.8 % Platelet Count 272 TH/MM3 Mean Platelet Volume 10.1 FL Neutrophils (%) (Auto) 66.9 % Lymphocytes (%) (Auto) 22.5 % Monocytes (%) (Auto) 7.1 % Eosinophils (%) (Auto) 2.7 % Basophils (%) (Auto) 0.8 % Neutrophils # (Auto) 8.4 TH/MM3 Lymphocytes # (Auto) 2.8 TH/MM3 Monocytes # (Auto) 0.9 TH/MM3 Eosinophils # (Auto) 0.3 TH/MM3 Basophils # (Auto) 0.1 TH/MM3 CBC Comment DIFF FINAL Differential Comment Prothrombin Time 10.4 SEC Prothromb Time International 0.9 RATIO Ratio Activated Partial 28.3 SEC Thromboplast Time D-Dimer Quantitative (PE/DVT) 0.20 MG/L FEU Sodium Level 139 MEQ/L Potassium Level 4.6 MEQ/L Chloride Level 107 MEQ/L Carbon Dioxide Level 24.3 MEQ/L Anion Gap 8 MEQ/L Blood Urea Nitrogen 20 MG/DL Creatinine 1.20 MG/DL Estimat Glomerular Filtration 65 ML/MIN Rate Random Glucose 102 MG/DL Calcium Level 9.7 MG/DL Magnesium Level 2.1 MG/DL Total Creatine Kinase 33 U/L Troponin I LESS THAN 0.02 NG/ML MDM Medical Decision Making Medical Screen Exam Complete: Yes Emergency Medical Condition: Yes Medical Record Reviewed: Yes (Patient had a negative stress test in July 2016. ) Interpretation(s) EKG showed a normal sinus rhythm with no acute ischemic change. Differential Diagnosis Differential includes [place], pneumothorax, unstable angina, anxiety, costochondritis. Narrative Course Patient presents with left sided chest pain. Patient's EKG at arrival showed normal sinus rhythm, no ST elevation or depression. CBC & BMP Diagram 09/28/16 18:20 Cardiac enzymes are negative. D-dimer is normal. Last Impressions Chest X-Ray 09/28/169 Signed Impressions: Service Date/Time: Wednesday, September 28, 2016 18:22 - CONCLUSION: Compensated cardiomegaly otherwise negative Kj Collazo MD FACR No emergency cardiac, pulmonary, or vascular pathology at this time. Patient will be discharged home with prescriptions for flexeril and ibuprofen. Procedures Procedure Narrative EKG at arrival showed normal sinus rhythm, rate of 96. No ST changes. Diagnosis Primary Impression: Chest pain Qualified Code: R07.9 - Chest pain, unspecified type Patient Instructions: Chest Pain (DC), General Instructions Med/Other Pt SpecificInfo: Prescription(s) given Scripts Ibuprofen 800 Mg [id number] Mg PO Q8H PRN (Pain/Inflammation) #60 TAB Ref 0 Prov:Mona Melo MD 09/28/16 Cyclobenzaprine (Flexeril)10 Mg Tab10 Mg PO TID #30 TAB Ref 0 Prov:Mona Melo MD 09/28/16 Disposition: 01 DISCHARGE HOME Condition: Stable Mona Melo MD Sep 28, 2016 18:42
--- NOTE | 2016-09-28 18:43 | RADRPT ---
EXAM DATE/TIME: 09/28/2016 18:22 [facility] COMPARISON: CHEST SINGLE AP, July 31, 2016, 15:45. INDICATIONS : Shortness of breath. MEDICAL HISTORY : Congestive heart failure. Chronic obstructive pulmonary disease. SURGICAL HISTORY : None. ENCOUNTER: Initial ACUITY: 1 day PAIN SCORE: Non-responsive. LOCATION: Bilateral chest FINDINGS: The lungs are clear. The heart is minimally enlarged. The pulmonary vascularity is normal. There is n o evidence for infiltrate or failure. The portion of the bony skeleton visualized is unremarkable. CONCLUSION: Compensated cardiomegaly otherwise negative Kj Collazo MD FACR on September 28, 2016 at 18:41 Board Certified Radiologist. This report was verified electronically.
[2016-09-28 18:52] LABS: CHLORIDE 107 MEQ/L (98-107); POTASSIUM 4.6 MEQ/L (3.5-5.1); SODIUM (NA) 139 MEQ/L (136-145)
[2016-09-28 18:55] LABS: ANION GAP 8 MEQ/L (5-15); BICARBONATE 24.3 MEQ/L (21.0-32.0); BLOOD UREA NITROGEN 20 MG/DL (7-18); MAGNESIUM 2.1 MG/DL (1.5-2.5)
[2016-09-28 18:58] LABS: GLOMERULAR FILTRATION RATE 65 ML/MIN (>89)
[2016-09-28 18:59] LABS: APTT (PATIENT) 28.3 SEC (24.3-30.1); INTERNATIONAL NORMALIZED RATIO 0.9 RATIO; PROTHROMBIN TIME - PATIENT 10.4 SEC (9.8-11.6)
[2016-09-28] MEDS ORDERED: MULT-65 PO (19:13)
[2016-09-28 19:19] LABS: CREATINE KINASE 33 U/L (39-308)
[2016-09-28] MEDS ORDERED: CYCL1TAB29 PO (20:00)
[2016-09-28] MEDS ORDERED: IBUP800T23 PO (20:00)
[2016-09-28] MEDS ORDERED: LORA-475 PO (20:25)
--- NOTE | 2016-09-29 10:01 | EKG ---
Date Performed: 09/28/2016 Time Performed: 18:19:42 PTAGE: 45 years EKG: Sinus rhythm NORMAL ECG Compared to prior tracing no significant change PREVIOUS TRACING : 08/01/16 DOCTOR: Richar Cardenas Interpretating Date/Time 09/29/2016 09:56:15
== END 2016-09-28 20:44 | disposition home or self-care (01) ==
LOC: PHED 18:13
DX: R07.9 Chest pain, unspecified (principal); I10 Essential (primary) hypertension; Z79.899 Other long term (current) drug therapy; Z87.09 Personal history of other diseases of the respiratory system; Z86.59 Personal history of other mental and behavioral disorders; Z86.79 Personal history of other diseases of the circulatory system; Z87.39 Personal history of other diseases of the musculoskeletal system and connective tissue; Z86.69 Personal history of other diseases of the nervous system and sense organs; Z87.891 Personal history of nicotine dependence
CPT/HCPCS: 71010; 80048; 82550; 83735; 84484; 85025; 85379; 85610; 85730; 93005; 96374; 96375; 99285; J2060; J2270; J2405

== ENCOUNTER 2016-12-27 13:26 | Emergency (ER) | payer OTHER ==
[~2016-12-27] VITALS: Ht 182.9 cm; Wt 154.0 kg
[~2016-12-27 13:26] MED LIST changes: +CYCL1TAB29 PO; +IBUP800T23 PO; +LORA-475 PO; +MULT-65 PO; -TRAM50TA PO
[2016-12-27 13:28] VITALS: BP 145/95; PULSE 88; RESP 22
[2016-12-27] MEDS ORDERED: ASPIRIN 325 MG TAB PO ONE (13:45)
[2016-12-27] MEDS ORDERED: SODIUM CHLORIDE 0.9% FLUSH 10 ML FLUSH IVF PRN (13:45)
--- NOTE | 2016-12-27 13:47 | PD ---
HPI Chief Complaint: Chest Pain Time Seen by Provider: 13:40 Travel History International Travel<30 days: No Contact w/Intl Traveler<30days: No Traveled to known affect area: No History of Present Illness HPI Patient presents with complaints of chest pain for approximately 3 hours which has intensified in the last 30 minutes. Radiates to the left arm. Denies diaphoresis or shortness of breath. Aggravated with deep inspiration. History of tobacco use. Past medical history for COPD and heart failure. Nondiabetic. PFSH Past Medical History Asthma: Yes Autoimmune Disease: No Blood Disorders: No Anxiety: No Depression: Yes Cancer: No Cardiomyopathy: Yes Cardiovascular Problems: Yes Congestive Heart Failure: Yes COPD: Yes Diminished Hearing: No Endocrine: No Gastrointestinal Disorders: No Genitourinary: No Headaches: Yes Hypertension: Yes Immune Disorder: No Implanted Vascular Access Dvce: Yes Musculoskeletal: Yes Neurologic: Yes Psychiatric: Yes Reproductive: No Respiratory: Yes (CHRONIC BRONCHITIS) Immunizations Current: Yes Migraines: Yes Seizures: Yes PNEUMOCCOCAL Vaccine (Year): 2 Past Surgical History Abdominal Surgery: No AICD: No Arteriovenous Shunt: No Body Medical Devices: IMPLANT FOR MIGRAINES none now Cardiac Surgery: No Cholecystectomy: Yes Ear Surgery: No Endocrine Surgery: No Eye Surgery: No Genitourinary Surgery: No Gynecologic Surgery: No Insulin Pump: No Joint Replacement: No Neurologic Surgery: Yes (BRAIN IMPLANT FOR MIGRAINES-HAS BEEN REMOVED) Oral Surgery: No Pacemaker: No Thoracic Surgery: No Other Surgery: Yes (REMOVAL OF BRAIN IMPLANT BECAUSE IT CAUSED SEIZURES) Social History Alcohol Use: No Tobacco Use: No (QUIT AGE 40) Substance Use: No Allergies-Medications (Allergen,Severity, Reaction): Coded Allergies: caffeine (Unverified Allergy, Severe, RASH, 11/03/16) codeine (Unverified Allergy, Severe, Itching, 11/03/16) propoxyphene (Unverified Allergy, Severe, ABD. CRAMS, 11/03/16) Reported Meds & Prescriptions Reported Meds & Active Scripts Active Reported Duoneb (Ipratropium-Albuterol Neb) 0.5-2.5 Mg/3 Ml Neb 1 Nebule INH Q6HR NEB Aspirin 81 (Aspirin) 81 Mg Tabdr 81 Mg PO DAILY Norvasc (Amlodipine Besylate) 10 Mg Tab 10 Mg PO DAILY Lisinopril 10 Mg Tab 10 Mg PO DAILY Review of Systems General / Constitutional: No: Fever Eyes: No: Visual changes HENT: No: Headaches Cardiovascular: Positive: Chest Pain or Discomfort Respiratory: No: Shortness of Breath Gastrointestinal: No: Abdominal Pain Genitourinary: No: Dysuria Musculoskeletal: No: Pain Skin: No Rash Neurologic: No: Weakness Psychiatric: No: Depression Endocrine: No: Polydipsia Hematologic/Lymphatic: No: Easy Bruising Physical Exam Narrative GENERAL: Well-nourished, well-developed patient. SKIN: Focused skin assessment warm/dry. HEAD: Normocephalic. EYES: No scleral icterus. No injection or drainage. NECK: Supple, trachea midline. No JVD or lymphadenopathy. CARDIOVASCULAR: Regular rate and rhythm without murmurs, gallops, or rubs. RESPIRATORY: Breath sounds equal bilaterally. No accessory muscle use. GASTROINTESTINAL: Abdomen soft, non-tender, nondistended. MUSCULOSKELETAL: No cyanosis, or edema. BACK: Nontender without obvious deformity. No CVA tenderness. Data Data Last Documented VS Vital Signs Date Time Temp Pulse Resp B/P (MAP) Pulse Ox O2 Delivery O2 Flow Rate FiO2 12/27/16 13:40 22 100 Room Air 12/27/16 13:28 88 145/95 (112) Orders Orders Electrocardiogram (12/27/16 13:33) Complete Blood Count With Diff (12/27/16 13:33) Ckmb (Isoenzyme) Profile (12/27/16 13:33) Troponin I (12/27/16 13:33) Chest, Single Ap (12/27/16 13:33) Iv Access Insert/Monitor (12/27/16 13:33) Ecg Monitoring (12/27/16 13:33) Oxygen Administration (12/27/16 13:33) Oximetry (12/27/16 13:33) Act Partial Throm Time (Ptt) (12/27/16 13:37) Prothrombin Time / Inr (Pt) (12/27/16 13:37) B-Type Natriuretic Peptide (12/27/16 13:37) Electrocardiogram (12/27/16 13:40) Bilateral Bp Monitoring (12/27/16 13:40) Aspirin (Aspirin) (12/27/16 13:45) Sodium Chloride 0.9% Flush (Ns Flush) (12/27/16 13:45) Ketorolac Inj (Toradol Inj) (12/27/16 14:00) Comprehensive Metabolic Panel (12/27/16 13:30) Magnesium (Mg) (12/27/16 13:30) Act Partial Throm Time (Ptt) (12/27/16 13:37) Act Partial Throm Time (Ptt) (12/27/16 13:30) Hydromorphone Pf Inj (Dilaudid Pf Inj) (12/27/16 14:30) Ondansetron Inj (Zofran Inj) (12/27/16 14:30) Labs Laboratory Tests Test 12/27/16 13:30 White Blood Count 9.4 TH/MM3 Red Blood Count 4.83 MIL/MM3 Hemoglobin 15.4 GM/DL Hematocrit 45.1 % Mean Corpuscular Volume 93.4 FL Mean Corpuscular Hemoglobin 31.8 PG Mean Corpuscular Hemoglobin Concent 34.0 % Red Cell Distribution Width 13.4 % Platelet Count 210 TH/MM3 Mean Platelet Volume 9.7 FL Neutrophils (%) (Auto) 67.9 % Lymphocytes (%) (Auto) 21.0 % Monocytes (%) (Auto) 7.7 % Eosinophils (%) (Auto) 2.3 % Basophils (%) (Auto) 1.1 % Neutrophils # (Auto) 6.4 TH/MM3 Lymphocytes # (Auto) 2.0 TH/MM3 Monocytes # (Auto) 0.7 TH/MM3 Eosinophils # (Auto) 0.2 TH/MM3 Basophils # (Auto) 0.1 TH/MM3 CBC Comment DIFF FINAL Differential Comment Prothrombin Time 10.9 SEC Prothromb Time International Ratio 1.0 RATIO Activated Partial Thromboplast Time 26.8 SEC Blood Urea Nitrogen 9 MG/DL Creatinine 0.79 MG/DL Random Glucose 133 MG/DL Total Protein 7.6 GM/DL Albumin 3.9 GM/DL Calcium Level 9.0 MG/DL Magnesium Level 2.0 MG/DL Alkaline Phosphatase 139 U/L Aspartate Amino Transf (AST/SGOT) 14 U/L Alanine Aminotransferase (ALT/SGPT) 32 U/L Total Bilirubin 0.4 MG/DL Sodium Level 136 MEQ/L Potassium Level 3.9 MEQ/L Chloride Level 104 MEQ/L Carbon Dioxide Level 23.3 MEQ/L Anion Gap 9 MEQ/L Estimat Glomerular Filtration Rate 105 ML/MIN Total Creatine Kinase 55 U/L Troponin I LESS THAN 0.02 NG/ML B-Type Natriuretic Peptide LESS THAN 2 PG/ML MDM Medical Decision Making Medical Screen Exam Complete: Yes Emergency Medical Condition: Yes Differential Diagnosis Acute coronary syndrome, costochondritis, pleurisy Narrative Course Assessment and plan discussed with patient at bedside. EKG reveals sinus rhythm rate of 87. No ST segment elevations or depressions. Cardiac enzymes are negative. Diagnosis Primary Impression: Chest pain Qualified Codes: R07.1 - Chest pain on breathing Patient Instructions: General Instructions, Narcotic given in the ED Additional Instructions: Encouraged nonsteroidal anti-inflammatories and rest. Follow-up with PCP. Return to the emergency room with any onset of new symptoms. Med/Other Pt SpecificInfo: Prescription(s) given Scripts Hydrocodone-Acetaminophen (Hydrocodone-Acetaminophen) 5-325 mg Tab 1 TAB PO Q6H Y for PAIN, #15 TAB 0 Refills Prov: Rudy Grimaldo MD 12/27/16 Disposition: 01 DISCHARGE HOME Condition: Good Rudy Grimaldo MD Dec 27, 2016 13:47
[2016-12-27 13:48] LABS: AUTOMATED NEUTROPHIL # 6.4 TH/MM3 (1.8-7.7); BASOPHIL # 0.1 TH/MM3 (0-0.2); BASOPHIL % 1.1 % (0.0-2.0); EOSINOPHIL # 0.2 TH/MM3 (0-0.4); EOSINOPHIL % 2.3 % (0.0-4.0); HEMATOCRIT 45.1 % (39.0-51.0); HEMO FLAGS DIFF FINAL; MEAN CELL VOLUME 93.4 FL (80.0-100.0); MEAN CORPUSCULAR HEMOGLOBIN 31.8 PG (27.0-34.0); MONO % 7.7 % (0.0-8.0); NEUT % 67.9 % (16.0-70.0); PLATELET COUNT 210 TH/MM3 (150-450); RED BLOOD COUNT 4.83 MIL/MM3 (4.50-5.90); RED CELL DISTRIBUTION WIDTH 13.4 % (11.6-17.2); WHITE BLOOD COUNT 9.4 TH/MM3 (4.0-11.0)
[2016-12-27 13:55] LABS: CHLORIDE 104 MEQ/L (98-107); POTASSIUM 3.9 MEQ/L (3.5-5.1); SODIUM (NA) 136 MEQ/L (136-145)
[2016-12-27 13:59] LABS: ANION GAP 9 MEQ/L (5-15); BICARBONATE 23.3 MEQ/L (21.0-32.0); BLOOD UREA NITROGEN 9 MG/DL (7-18)
[2016-12-27] MEDS ORDERED: KETOROLAC TROMETHAMINE 30 MG/ML (IVP) VIAL IV PUSH ONE (14:00)
[2016-12-27 14:02] LABS: GLOMERULAR FILTRATION RATE 105 ML/MIN (>89)
[2016-12-27 14:05] LABS: PROTHROMBIN TIME - PATIENT 10.9 SEC (9.8-11.6)
[2016-12-27 14:07] LABS: TOTAL BILIRUBIN ADULT 0.4 MG/DL (0.2-1.0)
[2016-12-27 14:08] LABS: ALKALINE PHOSPHATASE 139 U/L (45-117); ALT (GPT) 32 U/L (12-78); AST (GOT) 14 U/L (15-37)
--- NOTE | 2016-12-27 14:10 | RADRPT ---
EXAM DATE/TIME: 12/27/2016 13:54 [facility] COMPARISON: CHEST SINGLE AP, September 28, 2016, 18:22. INDICATIONS : Chest pain today MEDICAL HISTORY : Chronic obstructive pulmonary disease. Congestive heart failure. SURGICAL HISTORY : None. ENCOUNTER: Initial ACUITY: 1 day PAIN SCORE: 8/10 LOCATION: Bilateral chest FINDINGS: There is cardiomegaly. There is no overt congestive failure. Mediastinal contours are within normal l imits. There are chronic appearing interstitial changes within the pulmonary parenchyma. No suspiciou s lesions are identified. No pleural effusion is evident. The bony structures are intact. CONCLUSION: 1. Cardiomegaly. 2. Stable compared to previous exam Rocco Collazo MD on December 27, 2016 at 14:08 Board Certified Radiologist. This report was verified electronically.
[2016-12-27 14:13] LABS: CREATINE KINASE 55 U/L (39-308)
[2016-12-27 14:20] LABS: APTT (PATIENT) 26.8 SEC (24.3-30.1)
[2016-12-27] MEDS ORDERED: ONDANSETRON HCL 4 MG/2 ML VIAL IV PUSH ONE (14:30)
[2016-12-27] MEDS ORDERED: HYDROmorphone HCL PF 1 MG/ML VIAL IV PUSH ONE (14:30)
[2016-12-27] MEDS ORDERED: HYDR-3516 PO (14:54)
[2016-12-27 15:05] VITALS: BP 135/65
--- NOTE | 2016-12-28 12:52 | EKG ---
Date Performed: 12/27/2016 Time Performed: 13:28:35 PTAGE: 46 years EKG: Sinus rhythm NORMAL ECG INTERPRETATION BASED ON A DEFAULT AGE OF 40 YEARS Compared to prior tracing no significan t change PREVIOUS TRACING : 09/28/2016 18.19.42 DOCTOR: Medhat Brown Interpretating Date/Time 12/28/2016 12:51:10
== END 2016-12-27 15:15 | disposition home or self-care (01) ==
LOC: PHED 13:26
DX: R07.1 Chest pain on breathing (principal); I10 Essential (primary) hypertension; Z79.899 Other long term (current) drug therapy; Z87.09 Personal history of other diseases of the respiratory system; Z86.59 Personal history of other mental and behavioral disorders; Z86.79 Personal history of other diseases of the circulatory system; Z87.39 Personal history of other diseases of the musculoskeletal system and connective tissue; Z86.69 Personal history of other diseases of the nervous system and sense organs; Z87.891 Personal history of nicotine dependence
CPT/HCPCS: 71010; 80053; 82550; 83735; 83880; 84484; 85025; 85610; 85730; 93005; 96374; 96375; 99285; J1170; J1885; J2405

== ENCOUNTER 2016-12-31 22:16 | Emergency (ER) | payer SELFPAY ==
[~2016-12-31 22:16] MED LIST changes: -CYCL1TAB29 PO; +HYDR-3516 PO; -IBUP800T23 PO; -LORA-475 PO; -MULT-65 PO
[2016-12-31] MEDS ORDERED: ASPIRIN 81 MG CHEW TAB PO ONE (22:30)
[2016-12-31] MEDS ORDERED: SODIUM CHLORIDE 0.9% FLUSH 10 ML FLUSH IVF PRN (22:30)
[2016-12-31 22:38] LABS: BASOPHIL # 0.1 TH/MM3 (0-0.2); EOSINOPHIL # 0.4 TH/MM3 (0-0.4); EOSINOPHIL % 4.1 % (0.0-4.0); HEMATOCRIT 45.7 % (39.0-51.0); HEMO FLAGS DIFF FINAL; LYMPH % 25.8 % (9.0-44.0); LYMPHOCYTE # 2.5 TH/MM3 (1.0-4.8); MEAN CELL VOLUME 92.7 FL (80.0-100.0); MEAN CORPUSCULAR HEMOGLOBIN 31.3 PG (27.0-34.0); MEAN CORPUSCULAR HGB CONC 33.8 % (32.0-36.0); MONO % 7.4 % (0.0-8.0); NEUT % 61.7 % (16.0-70.0); PLATELET COUNT 239 TH/MM3 (150-450); RED BLOOD COUNT 4.93 MIL/MM3 (4.50-5.90); RED CELL DISTRIBUTION WIDTH 12.9 % (11.6-17.2); WHITE BLOOD COUNT 9.7 TH/MM3 (4.0-11.0)
[2016-12-31 22:40] VITALS: BP 158/100; PULSE 91; RESP 20; O2SAT 96
[2016-12-31 22:45] LABS: CHLORIDE 102 MEQ/L (98-107); POTASSIUM 3.8 MEQ/L (3.5-5.1); SODIUM (NA) 136 MEQ/L (136-145)
[2016-12-31] MEDS ORDERED: MORPHINE SULFATE 4 MG/ML INJ IV ONE (22:45)
[2016-12-31] MEDS ORDERED: ONDANSETRON HCL 4 MG/2 ML VIAL IV PUSH ONE (22:45)
[2016-12-31 22:47] VITALS: BP 152/76; PULSE 93; RESP 20; O2SAT 98
[2016-12-31 22:48] LABS: ANION GAP 9 MEQ/L (5-15); BICARBONATE 25.1 MEQ/L (21.0-32.0); MAGNESIUM 1.9 MG/DL (1.5-2.5)
[2016-12-31 22:49] LABS: BLOOD UREA NITROGEN 13 MG/DL (7-18)
--- NOTE | 2016-12-31 22:51 | PD ---
HPI . Chest pain Chief Complaint: Chest Pain Time Seen by Provider: 22:25 Travel History International Travel<30 days: No Contact w/Intl Traveler<30days: No History of Present Illness HPI This patient presents with a chief complaint of chest pain. Onset was 12/27. He states that it has gotten worse over the last 4 hours. He describes a pressure-like sensation in the center of his chest and radiating to the left side which is associated with nausea and sweating. He rates the pain 10/29. Pain is exacerbated by exhaling. The patient was seen here on 12 27 for same. He had a negative cardiac workup at that time and was discharged with a prescription for [place] and instructions to take an anti-inflammatory. The patient has subsequently developed a rash. It started a few days ago. PFSH Past Medical History Asthma: Yes Autoimmune Disease: No Blood Disorders: No Anxiety: No Depression: Yes Cancer: No Cardiomyopathy: Yes Cardiovascular Problems: Yes Congestive Heart Failure: Yes COPD: Yes Diminished Hearing: No Endocrine: No Gastrointestinal Disorders: No Genitourinary: No Headaches: Yes Hypertension: Yes Immune Disorder: No Implanted Vascular Access Dvce: Yes Musculoskeletal: Yes Neurologic: Yes Psychiatric: Yes Reproductive: No Respiratory: Yes (CHRONIC BRONCHITIS) Immunizations Current: Yes Migraines: Yes Seizures: Yes Tetanus Vaccination: < 5 Years Influenza Vaccination: Yes PNEUMOCCOCAL Vaccine (Year): 2 Past Surgical History Abdominal Surgery: No AICD: No Arteriovenous Shunt: No Body Medical Devices: IMPLANT FOR MIGRAINES none now Cardiac Surgery: No Cholecystectomy: Yes Ear Surgery: No Endocrine Surgery: No Eye Surgery: No Genitourinary Surgery: No Gynecologic Surgery: No Insulin Pump: No Joint Replacement: No Neurologic Surgery: Yes (BRAIN IMPLANT FOR MIGRAINES-HAS BEEN REMOVED) Oral Surgery: No Pacemaker: No Thoracic Surgery: No Other Surgery: Yes (REMOVAL OF BRAIN IMPLANT BECAUSE IT CAUSED SEIZURES) Social History Alcohol Use: No Tobacco Use: No (QUIT AGE 40) Substance Use: No Allergies-Medications (Allergen,Severity, Reaction): Coded Allergies: caffeine (Unverified Allergy, Severe, RASH, 11/03/16) codeine (Unverified Allergy, Severe, Itching, 11/03/16) propoxyphene (Unverified Allergy, Severe, ABD. CRAMS, 11/03/16) Reported Meds & Prescriptions Reported Meds & Active Scripts Active Percocet (Oxycodone-Acetaminophen) 5-325 mg Tab 1 Tab PO Q4H PRN Hydrocodone-Acetaminophen 5-325 mg Tab 1 Tab PO Q6H PRN Reported Duoneb (Ipratropium-Albuterol Neb) 0.5-2.5 Mg/3 Ml Neb 1 Nebule INH Q6HR NEB Aspirin 81 (Aspirin) 81 Mg Tabdr 81 Mg PO DAILY Norvasc (Amlodipine Besylate) 10 Mg Tab 10 Mg PO DAILY Lisinopril 10 Mg Tab 10 Mg PO DAILY Review of Systems Except as stated in HPI: all other systems reviewed are Neg General / Constitutional: Positive: Other (diaphoresis) Cardiovascular: Positive: Chest Pain or Discomfort Gastrointestinal: Positive: Nausea Physical Exam Narrative GENERAL: This patient seems extremely anxious. He is probably also mentally challenged. SKIN: warm/dry. He does have a vesicular rash on the left side of his chest in the T1 dermatome. HEAD: Normocephalic. Atraumatic. EYES: Pupils equal and round. No scleral icterus. No injection or drainage. ENT: No nasal bleeding or discharge. Mucous membranes pink and moist. NECK: Trachea midline. Full range of motion without pain.. CARDIOVASCULAR: Regular rate and rhythm. Heart sounds are normal. RESPIRATORY: No accessory muscle use. Clear to auscultation. Breath sounds equal bilaterally. GASTROINTESTINAL: Abdomen soft. Nontender. Bowel sounds present. Nondistended. MUSCULOSKELETAL: No obvious deformities. NEUROLOGICAL: Awake and alert. No obvious cranial nerve deficits. Motor grossly within normal limits. Normal speech. PSYCHIATRIC: Appropriate mood and affect; insight and judgment normal. Data Data Last Documented VS Vital Signs Date Time Temp Pulse Resp B/P (MAP) Pulse Ox O2 Delivery O2 Flow Rate FiO2 12/31/16 22:47 93 20 152/76 (101) 98 Orders Orders Electrocardiogram (12/31/16 22:25) Basic Metabolic Panel (Bmp) (12/31/16 22:25) Ckmb (Isoenzyme) Profile (12/31/16 22:25) Complete Blood Count With Diff (12/31/16 22:25) Magnesium (Mg) (12/31/16 22:25) Prothrombin Time / Inr (Pt) (12/31/16 22:25) Act Partial Throm Time (Ptt) (12/31/16 22:25) Troponin I (12/31/16 22:25) Chest, Single Ap (12/31/16 22:25) Ecg Monitoring (12/31/16 22:25) Iv Access Insert/Monitor (12/31/16 22:25) Oximetry (12/31/16 22:25) Aspirin Chew (Aspirin Chew) (12/31/16 22:30) Sodium Chloride 0.9% Flush (Ns Flush) (12/31/16 22:30) Morphine Inj (Morphine Inj) (12/31/16 22:45) Ondansetron Inj (Zofran Inj) (12/31/16 22:45) Labs Laboratory Tests Test 12/31/16 22:30 White Blood Count 9.7 TH/MM3 Red Blood Count 4.93 MIL/MM3 Hemoglobin 15.4 GM/DL Hematocrit 45.7 % Mean Corpuscular Volume 92.7 FL Mean Corpuscular Hemoglobin 31.3 PG Mean Corpuscular Hemoglobin Concent 33.8 % Red Cell Distribution Width 12.9 % Platelet Count 239 TH/MM3 Mean Platelet Volume 10.0 FL Neutrophils (%) (Auto) 61.7 % Lymphocytes (%) (Auto) 25.8 % Monocytes (%) (Auto) 7.4 % Eosinophils (%) (Auto) 4.1 % Basophils (%) (Auto) 1.0 % Neutrophils # (Auto) 6.0 TH/MM3 Lymphocytes # (Auto) 2.5 TH/MM3 Monocytes # (Auto) 0.7 TH/MM3 Eosinophils # (Auto) 0.4 TH/MM3 Basophils # (Auto) 0.1 TH/MM3 CBC Comment DIFF FINAL Differential Comment Prothrombin Time 10.5 SEC Prothromb Time International Ratio 1.0 RATIO Activated Partial Thromboplast Time 26.8 SEC Blood Urea Nitrogen 13 MG/DL Creatinine 0.90 MG/DL Random Glucose 127 MG/DL Calcium Level 9.6 MG/DL Magnesium Level 1.9 MG/DL Sodium Level 136 MEQ/L Potassium Level 3.8 MEQ/L Chloride Level 102 MEQ/L Carbon Dioxide Level 25.1 MEQ/L Anion Gap 9 MEQ/L Estimat Glomerular Filtration Rate 90 ML/MIN Total Creatine Kinase 54 U/L Troponin I LESS THAN 0.02 NG/ML MDM Medical Decision Making Medical Screen Exam Complete: Yes Emergency Medical Condition: Yes Medical Record Reviewed: Yes (this patient was seen here on 10/8 for same. His medical history is significant for hypertension, CHF and COPD.) Interpretation(s) EKG shows a normal sinus rhythm with no acute changes Differential Diagnosis Differential diagnosis of chest pain includes but is not limited to musculoskeletal pain, pulmonary embolism, acute coronary syndrome, pneumonia, pleurisy Narrative Course This patient presents with left-sided chest pain, onset 12/27. He has subsequently developed a vesicular rash in the T1 dermatome on the left. It looks like he has shingles. This probably explains his chest pain. He is outside of the 72 hour window for treatment with an antiviral. CBC & BMP Diagram 12/31/16 22:30 Calcium Level 9.6, Magnesium Level 1.9 trop < 0.02 This patient is stable for discharge. He has shingles. Diagnosis Primary Impression: Chest pain Qualified Codes: R07.9 - Chest pain, unspecified Additional Impression: Shingles Qualified Codes: B02.9 - Zoster without complications Patient Instructions: General Instructions, Narcotic given in the ED, Shingles (DC) Med/Other Pt SpecificInfo: Prescription(s) given Scripts Oxycodone-Acetaminophen (Percocet) 5-325 mg Tab 1 TAB PO Q4H Y for PAIN, #15 TAB 0 Refills Prov: Mona Melo MD 12/31/16 Disposition: 01 DISCHARGE HOME Condition: Stable Mona Melo MD Dec 31, 2016 22:50
[2016-12-31 22:52] LABS: APTT (PATIENT) 26.8 SEC (24.3-30.1); GLOMERULAR FILTRATION RATE 90 ML/MIN (>89); PROTHROMBIN TIME - PATIENT 10.5 SEC (9.8-11.6)
[2016-12-31] MEDS ORDERED: PERC5TAB12 PO (22:55)
[2016-12-31 22:56] LABS: CREATINE KINASE 54 U/L (39-308)
--- NOTE | 2016-12-31 23:06 | RADRPT ---
EXAM DATE/TIME: 12/31/2016 22:34 [facility] COMPARISON: No previous studies available for comparison. INDICATIONS : Chest pain starting this evening. MEDICAL HISTORY : Chronic obstructive pulmonary disease. Congestive heart failure. Hypertension. SURGICAL HISTORY : Cholecystectomy. ENCOUNTER: Initial ACUITY: 1 day PAIN SCORE: 6/10 LOCATION: Bilateral chest FINDINGS: A single view of the chest demonstrates cardiomegaly. Mild basilar atelectasis. No effusion or pneumo thorax. Mildly tortuous aorta. CONCLUSION: 1. Minimal basilar atelectasis. Cardiomegaly. Salazar Canales MD on December 31, 2016 at 23:04 Board Certified Radiologist. This report was verified electronically.
[2016-12-31 23:29] VITALS: RESP 20
[2016-12-31 23:46] VITALS: BP 161/86
--- NOTE | 2017-01-01 09:13 | EKG ---
Date Performed: 12/31/2016 Time Performed: 22:24:28 PTAGE: 46 years EKG: SINUS TACHYCARDIA POSSIBLE RIGHT VENTRICULAR CONDUCTION DELAY ABNORMAL RHYTHM ECG PREVIOUS TRACING : 12/27/2016 13.28 No significant change from previous tracing noted. DOCTOR: Shon Fraga Interpretating Date/Time 01/01/2017 09:12:24
== END 2016-12-31 23:50 | disposition home or self-care (01) ==
LOC: PHED 22:16
DX: R07.9 Chest pain, unspecified (principal); B02.9 Zoster without complications; R11.0 Nausea; R61 Generalized hyperhidrosis; R94.31 Abnormal electrocardiogram [ECG] [EKG]; I10 Essential (primary) hypertension; Z87.09 Personal history of other diseases of the respiratory system; Z86.79 Personal history of other diseases of the circulatory system; Z86.59 Personal history of other mental and behavioral disorders; Z87.39 Personal history of other diseases of the musculoskeletal system and connective tissue; Z86.69 Personal history of other diseases of the nervous system and sense organs
CPT/HCPCS: 71010; 80048; 82550; 83735; 84484; 85025; 85610; 85730; 93005; 96374; 96375; 99285; J2270; J2405

== ENCOUNTER 2017-01-07 19:49 | Emergency (ER) | payer SELFPAY ==
[~2017-01-07] VITALS: Ht 188 cm; Wt 157.0 kg
[~2017-01-07 19:49] MED LIST changes: +PERC5TAB12 PO
[2017-01-07 20:08] VITALS: BP 157/97; PULSE 80; RESP 18; TEMP 98.5; O2SAT 97
--- NOTE | 2017-01-07 21:22 | PD ---
HPI . Herpes zoster Chief Complaint: Skin Problem Time Seen by Provider: 20:42 Travel History International Travel<30 days: No Contact w/Intl Traveler<30days: No Traveled to known affect area: No History of Present Illness HPI 46-year-old male patient presents to the emergency department for evaluation of vesicular rash presenting in the T1 dermatome. Patient was seen at our facility approximately a week ago with chest pain and the same rash as today. He had a negative cardiac workup. He was discharged with Percocet to help manage the zoster pain. Patient presents again today stating while the rash has not worsened or improved the pain is unmanageable. Patient states he is feeling the same type of burning pain to the occipital portion of his scalp. Scalp was assessed through hair and mild erythema is present, no vesicular rash at this time. Patient denies any fevers, chills, malaise or shortness breath, chest pain. Patient states this is his first episode with herpes zoster. He describes the pain as a burning sensation. PFSH Past Medical History Asthma: Yes Autoimmune Disease: No Blood Disorders: No Anxiety: No Depression: Yes Cancer: No Cardiomyopathy: Yes Cardiovascular Problems: Yes Congestive Heart Failure: Yes COPD: Yes Diminished Hearing: No Endocrine: No Gastrointestinal Disorders: No Genitourinary: No Headaches: Yes Hypertension: Yes Immune Disorder: No Implanted Vascular Access Dvce: Yes Musculoskeletal: Yes Neurologic: Yes Psychiatric: Yes Reproductive: No Respiratory: Yes (COPD) Immunizations Current: Yes Migraines: Yes Seizures: Yes Tetanus Vaccination: > 5 Years Influenza Vaccination: Yes PNEUMOCCOCAL Vaccine (Year): 2 Past Surgical History Abdominal Surgery: No AICD: No Arteriovenous Shunt: No Body Medical Devices: IMPLANT FOR MIGRAINES none now Cardiac Surgery: No Cholecystectomy: Yes Ear Surgery: No Endocrine Surgery: No Eye Surgery: No Genitourinary Surgery: No Gynecologic Surgery: No Insulin Pump: No Joint Replacement: No Neurologic Surgery: Yes (BRAIN IMPLANT FOR MIGRAINES-HAS BEEN REMOVED) Oral Surgery: No Pacemaker: No Thoracic Surgery: No Other Surgery: Yes (REMOVAL OF BRAIN IMPLANT BECAUSE IT CAUSED SEIZURES) Social History Alcohol Use: No Tobacco Use: No (QUIT AGE 40) Substance Use: No Allergies-Medications (Allergen,Severity, Reaction): Coded Allergies: caffeine (Unverified Allergy, Severe, RASH, 01/07/17) codeine (Unverified Allergy, Severe, Itching, 01/07/17) propoxyphene (Unverified Allergy, Severe, ABD. CRAMS, 01/07/17) Reported Meds & Prescriptions Reported Meds & Active Scripts Active Reported Duoneb (Ipratropium-Albuterol Neb) 0.5-2.5 Mg/3 Ml Neb 1 Nebule INH Q6HR NEB Aspirin 81 (Aspirin) 81 Mg Tabdr 81 Mg PO DAILY Norvasc (Amlodipine Besylate) 10 Mg Tab 10 Mg PO DAILY Lisinopril 10 Mg Tab 10 Mg PO DAILY Review of Systems Except as stated in HPI: all other systems reviewed are Neg Physical Exam Narrative GENERAL: Well-nourished, well-developed, obese, pleasant 46-year-old male patient in no acute respiratory distress. Nontoxic appearing. SKIN: Vesicular rash noted to the T1 dermatome. Mild erythema noted to the occipital portion of the skull. NEUROLOGICAL: Awake and alert. Cranial nerves II through XII intact. Motor and sensory grossly within normal limits. Five out of 5 muscle strength in all muscle groups. Normal speech. HEAD: Normocephalic. Atraumatic. EYES: No stigmata of zoster rash proximal to eyes or on face. No scleral icterus. No injection or drainage. NECK: Supple, trachea midline. No JVD or lymphadenopathy. CARDIOVASCULAR: Regular rate and rhythm without murmurs, gallops, or rubs. RESPIRATORY: Breath sounds equal bilaterally. No accessory muscle use. GASTROINTESTINAL: Abdomen soft, non-tender, nondistended. MUSCULOSKELETAL: No cyanosis, or edema. BACK: Nontender without obvious deformity. No CVA tenderness. Data Data Last Documented VS Vital Signs Date Time Temp Pulse Resp B/P (MAP) Pulse Ox O2 Delivery O2 Flow Rate FiO2 01/07/17 20:08 98.5 80 18 157/97 (117) 97 MDM Medical Decision Making Medical Screen Exam Complete: Yes Emergency Medical Condition: Yes Differential Diagnosis Differential diagnoses include herpes zoster, nerve pain, cellulitis Narrative Course 46-year-old male patient presents emergency department for evaluation of vesicular rash to the T1 dermatome. Patient denies fevers, chills, malaise. Patient states the rash has a burning sensation. Patient reports that similar burning sensation to the occipital portion of the scalp and now. Patient will be given a prescription for Percocet, gabapentin and prednisone and discharged home. He has a appointment with his primary care physician scheduled for next Wednesday. Diagnosis Primary Impression: Herpes zoster Qualified Codes: B02.9 - Zoster without complications Referrals: Primary Care Physician Patient Instructions: General Instructions, Shingles (GEN) Additional Instructions: Please return to emergency department if your symptoms return or worsen. Follow up with your primary care provider. Take medications as prescribed. Med/Other Pt SpecificInfo: Prescription(s) given Scripts Prednisone (48) 10 mg tab Dose Pack (Prednisone (48) 10 mg tab Dose Pack) 10 Mg Dspk 10 MG PO DIRECTED for Inflammation, #1 DSPK 0 Refills Prov: Moon Villalobos 01/07/17 Gabapentin (Gabapentin) 100 Mg Cap 100 MG PO TID for 14 Days, CAP 0 Refills Prov: Moon Villalobos 01/07/17 Disposition: 01 DISCHARGE HOME Condition: Stable Moon Villalobos Jan 07, 2017 21:22
[2017-01-07] MEDS ORDERED: PRED10PA2 PO (21:38)
[2017-01-07] MEDS ORDERED: GABA100C4 PO (21:38)
[2017-01-07] MEDS ORDERED: PERC10TA27 PO (21:39)
== END 2017-01-07 22:05 | disposition home or self-care (01) ==
LOC: PHEFT 19:49
DX: B02.9 Zoster without complications (principal)
CPT/HCPCS: 99284

== ENCOUNTER 2017-01-21 19:07 | Emergency (ER) | payer SELFPAY ==
[~2017-01-21] VITALS: Ht 182.9 cm; Wt 158.0 kg
[~2017-01-21 19:07] MED LIST changes: -ASPI-110 PO; +ASPI1TAB57 PO; +GABA100C4 PO; -HYDR-3516 PO; +PERC10TA27 PO; -PERC5TAB12 PO; +PRED10PA2 PO
[2017-01-21 19:16] VITALS: BP 159/85; PULSE 85; RESP 18; TEMP 98.1; O2SAT 97
--- NOTE | 2017-01-21 19:21 | PD ---
HPI Chief Complaint: ABD PAIN Time Seen by Provider: 19:20 Travel History International Travel<30 days: No Contact w/Intl Traveler<30days: No Traveled to known affect area: No History of Present Illness HPI C/O CRAMPY ABD PAIN, 10/29, NONRAD, ASSOC WITH NAUSEA BUT WITHOUT VOMITING OR DIARRHEA. PATIENT STATES ONSET OF PAIN SINCE THIS MORNING AND NOTHING SEEMS RN NOTE AND CHART REVIEWED PSHX;GB PMHX: CHF, COPD, HTN, PFSH Past Medical History Asthma: Yes Autoimmune Disease: No Blood Disorders: No Anxiety: No Depression: Yes Cancer: No Cardiomyopathy: Yes Cardiovascular Problems: Yes Congestive Heart Failure: Yes COPD: Yes Diminished Hearing: No Endocrine: No Gastrointestinal Disorders: No Genitourinary: No Headaches: Yes Hypertension: Yes Immune Disorder: No Implanted Vascular Access Dvce: Yes Musculoskeletal: Yes Neurologic: Yes Psychiatric: Yes Reproductive: No Respiratory: Yes (COPD) Immunizations Current: Yes Migraines: Yes Seizures: Yes PNEUMOCCOCAL Vaccine (Year): 2 Past Surgical History Abdominal Surgery: No AICD: No Arteriovenous Shunt: No Body Medical Devices: IMPLANT FOR MIGRAINES none now Cardiac Surgery: No Cholecystectomy: Yes Ear Surgery: No Endocrine Surgery: No Eye Surgery: No Genitourinary Surgery: No Gynecologic Surgery: No Insulin Pump: No Joint Replacement: No Neurologic Surgery: Yes (BRAIN IMPLANT FOR MIGRAINES-HAS BEEN REMOVED) Oral Surgery: No Pacemaker: No Thoracic Surgery: No Other Surgery: Yes (REMOVAL OF BRAIN IMPLANT BECAUSE IT CAUSED SEIZURES) Social History Alcohol Use: No Tobacco Use: No (QUIT AGE 40) Substance Use: No Allergies-Medications (Allergen,Severity, Reaction): Coded Allergies: caffeine (Unverified Allergy, Severe, RASH, 01/07/17) codeine (Unverified Allergy, Severe, Itching, 01/07/17) propoxyphene (Unverified Allergy, Severe, ABD. CRAMS, 01/07/17) Reported Meds & Prescriptions Reported Meds & Active Scripts Active Percocet (Oxycodone-Acetaminophen) 10-325 mg Tab 1 Tab PO Q6H PRN Gabapentin 100 Mg Cap 100 Mg PO TID 14 Days Reported Duoneb (Ipratropium-Albuterol Neb) 0.5-2.5 Mg/3 Ml Neb 1 Nebule INH Q6HR NEB Aspirin 81 (Aspirin) 81 Mg Tabdr 81 Mg PO DAILY Norvasc (Amlodipine Besylate) 10 Mg Tab 10 Mg PO DAILY Lisinopril 10 Mg Tab 10 Mg PO DAILY Review of Systems Except as stated in HPI: all other systems reviewed are Neg General / Constitutional: No: Fever Eyes: No: Visual changes HENT: No: Headaches Cardiovascular: No: Chest Pain or Discomfort Respiratory: No: Shortness of Breath Gastrointestinal: Positive: Nausea, Abdominal Pain Genitourinary: No: Dysuria Musculoskeletal: No: Pain Skin: No Rash Neurologic: No: Weakness Psychiatric: No: Depression Endocrine: No: Polydipsia Hematologic/Lymphatic: No: Easy Bruising Physical Exam Narrative GENERAL: SKIN: Warm and dry. HEAD: Atraumatic. Normocephalic. EYES: Pupils equal and round. No scleral icterus. No injection or drainage. ENT: No nasal bleeding or discharge. Mucous membranes pink and moist. NECK: Trachea midline. No JVD. CARDIOVASCULAR: Regular rate and rhythm. RESPIRATORY: No accessory muscle use. Clear to auscultation. Breath sounds equal bilaterally. GASTROINTESTINAL: Abdomen soft, non-tender, nondistended. MUSCULOSKELETAL: Extremities without clubbing, cyanosis, or edema. No obvious deformities. NEUROLOGICAL: Awake and alert. No obvious cranial nerve deficits. Motor grossly within normal limits. Five out of 5 muscle strength in the arms and legs. Normal speech. PSYCHIATRIC: Appropriate mood and affect; insight and judgment normal. Data Data Last Documented VS Vital Signs Date Time Temp Pulse Resp B/P (MAP) Pulse Ox O2 Delivery O2 Flow Rate FiO2 01/21/17 19:16 98.1 85 18 159/85 (109) 97 Orders Orders Complete Blood Count With Diff (01/21/17 19:26) Comprehensive Metabolic Panel (01/21/17 19:26) Lipase (01/21/17 19:26) Prothrombin Time / Inr (Pt) (01/21/17 19:26) Act Partial Throm Time (Ptt) (01/21/17 19:26) Urinalysis - C+S If Indicated (01/21/17 19:26) Ct Abd/Pel W/O Iv Contrast (01/21/17 19:26) Iv Access Insert/Monitor (01/21/17 19:26) Ecg Monitoring (01/21/17 19:26) Oximetry (01/21/17 19:26) NPO (01/21/17 19:26) Ondansetron Inj (Zofran Inj) (01/21/17 19:30) Sodium Chlor 0.9% 1000 Ml Inj (Ns 1000 M (01/21/17 19:26) Sodium Chloride 0.9% Flush (Ns Flush) (01/21/17 19:30) Electrocardiogram (01/21/17 19:26) Morphine Inj (Morphine Inj) (01/21/17 20:15) Labs Laboratory Tests Test 01/21/17 19:50 White Blood Count 7.2 TH/MM3 Red Blood Count 4.65 MIL/MM3 Hemoglobin 14.7 GM/DL Hematocrit 43.3 % Mean Corpuscular Volume 92.9 FL Mean Corpuscular Hemoglobin 31.5 PG Mean Corpuscular Hemoglobin Concent 33.9 % Red Cell Distribution Width 12.8 % Platelet Count 214 TH/MM3 Mean Platelet Volume 9.3 FL Neutrophils (%) (Auto) 62.4 % Lymphocytes (%) (Auto) 25.6 % Monocytes (%) (Auto) 6.7 % Eosinophils (%) (Auto) 4.4 % Basophils (%) (Auto) 0.9 % Neutrophils # (Auto) 4.5 TH/MM3 Lymphocytes # (Auto) 1.8 TH/MM3 Monocytes # (Auto) 0.5 TH/MM3 Eosinophils # (Auto) 0.3 TH/MM3 Basophils # (Auto) 0.1 TH/MM3 CBC Comment DIFF FINAL Differential Comment Prothrombin Time 10.6 SEC Prothromb Time International Ratio 1.0 RATIO Activated Partial Thromboplast Time 27.8 SEC Urine Color YELLOW Urine Turbidity CLEAR Urine pH 6.0 Urine Specific [place] 1.024 Urine Protein NEG mg/dL Urine Glucose (UA) NEG mg/dL Urine Ketones NEG mg/dL Urine Occult Blood NEG Urine Nitrite NEG Urine Bilirubin NEG Urine Leukocyte Esterase NEG Urine Squamous Epithelial Cells 0-5 /hpf Urine Mucus FEW /lpf Microscopic Urinalysis Comment CULT NOT INDICATED Blood Urea Nitrogen 11 MG/DL Creatinine 0.74 MG/DL Random Glucose 99 MG/DL Total Protein 7.7 GM/DL Albumin 3.7 GM/DL Calcium Level 9.0 MG/DL Alkaline Phosphatase 130 U/L Aspartate Amino Transf (AST/SGOT) 26 U/L Alanine Aminotransferase (ALT/SGPT) 54 U/L Total Bilirubin 0.6 MG/DL Sodium Level 135 MEQ/L Potassium Level 3.9 MEQ/L Chloride Level 102 MEQ/L Carbon Dioxide Level 25.1 MEQ/L Anion Gap 8 MEQ/L Estimat Glomerular Filtration Rate 113 ML/MIN Lipase 138 U/L MDM Medical Decision Making Medical Screen Exam Complete: Yes Emergency Medical Condition: Yes Medical Record Reviewed: Yes Interpretation(s) NSR 77, IRBBB, NO STEMI PATTERN, NL INTERVALS Differential Diagnosis COLITIS V PANCREATITIS V DIVERTIC DZ V GASTROENTERITIS V ATYPICAL STEMI Narrative Course CT SHOWED NL APPENDIX, GB REMOVED, AND DIVERTICULOSIS. NO E/O PANCREATITIS, EKG IS NO E/O STEMI, AND PATIENT MADE AWARE Diagnosis Primary Impression: DIVERTICULOSIS Patient Instructions: Diverticulosis (ED), Diverticulosis Diet (GEN), General Instructions Scripts Tramadol (Ultram) 50 Mg Tab 50 MG PO Q6H Y for PAIN, #10 TAB 0 Refills Prov: Yaya Kovacs MD 01/21/17 Ondansetron Odt (Zofran Odt) 4 Mg Tab 4 MG SL Q6HR Y for Nausea/Vomiting, #30 TAB 0 Refills Prov: Yaya Kovacs MD 01/21/17 Disposition: 01 DISCHARGE HOME Condition: Stable Yaya Kovacs MD Jan 21, 2017 19:21
[2017-01-21] MEDS ORDERED: SODIUM CHLOR 0.9% 1000 ML INJ 1,000 ML IV SCH (19:26)
[2017-01-21] MEDS ORDERED: SODIUM CHLORIDE 0.9% FLUSH 10 ML FLUSH IV FLUSH PRN (19:30)
[2017-01-21] MEDS ORDERED: MORPHINE SULFATE 4 MG/ML INJ IV PUSH ONE (19:30)
[2017-01-21] MEDS ORDERED: ONDANSETRON HCL 4 MG/2 ML VIAL IVP ONE (19:30)
[2017-01-21 19:58] LABS: AUTOMATED NEUTROPHIL # 4.5 TH/MM3 (1.8-7.7); BASOPHIL # 0.1 TH/MM3 (0-0.2); BASOPHIL % 0.9 % (0.0-2.0); EOSINOPHIL # 0.3 TH/MM3 (0-0.4); EOSINOPHIL % 4.4 % (0.0-4.0); HEMATOCRIT 43.3 % (39.0-51.0); HEMO FLAGS DIFF FINAL; LYMPH % 25.6 % (9.0-44.0); LYMPHOCYTE # 1.8 TH/MM3 (1.0-4.8); MEAN CELL VOLUME 92.9 FL (80.0-100.0); MEAN CORPUSCULAR HEMOGLOBIN 31.5 PG (27.0-34.0); MEAN CORPUSCULAR HGB CONC 33.9 % (32.0-36.0); MONO % 6.7 % (0.0-8.0); NEUT % 62.4 % (16.0-70.0); PLATELET COUNT 214 TH/MM3 (150-450); RED BLOOD COUNT 4.65 MIL/MM3 (4.50-5.90); RED CELL DISTRIBUTION WIDTH 12.8 % (11.6-17.2); WHITE BLOOD COUNT 7.2 TH/MM3 (4.0-11.0)
[2017-01-21 20:02] LABS: BLOOD, URINE NEG (NEG); GLUCOSE,URINE NEG (NEG); KETONE, URINE NEG (NEG); NITRITE,URINE NEG (NEG)
[2017-01-21 20:04] LABS: CHLORIDE 102 MEQ/L (98-107); POTASSIUM 3.9 MEQ/L (3.5-5.1); SODIUM (NA) 135 MEQ/L (136-145)
[2017-01-21 20:08] LABS: ANION GAP 8 MEQ/L (5-15); BICARBONATE 25.1 MEQ/L (21.0-32.0); BLOOD UREA NITROGEN 11 MG/DL (7-18)
[2017-01-21 20:10] LABS: APTT (PATIENT) 27.8 SEC (24.3-30.1); PROTHROMBIN TIME - PATIENT 10.6 SEC (9.8-11.6)
[2017-01-21 20:11] LABS: AST (GOT) 26 U/L (15-37); GLOMERULAR FILTRATION RATE 113 ML/MIN (>89)
[2017-01-21 20:12] LABS: TOTAL BILIRUBIN ADULT 0.6 MG/DL (0.2-1.0)
[2017-01-21 20:14] LABS: ALKALINE PHOSPHATASE 130 U/L (45-117)
[2017-01-21] MEDS ORDERED: MORPHINE SULFATE 8 MG/ML INJ IV PUSH ONE (20:15)
[2017-01-21 20:16] LABS: ALT (GPT) 54 U/L (12-78)
[2017-01-21 20:20] LABS: URINE COLOR YELLOW (YELLW/STRAW)
[2017-01-21 20:21] LABS: COMMENT (UR) CULT NOT INDICATED; CULTURE IF INDICATED CULT NOT INDICATED; MUCUS URINE FEW /lpf (OCC); SQUAMOUS EPITHELIAL CELL URINE 0-5 /hpf (0-5)
--- NOTE | 2017-01-21 20:25 | RADRPT ---
EXAM DATE/TIME: 01/21/2017 19:53 [facility] COMPARISON: No previous studies available for comparison. INDICATIONS : Nausea and abdominal pain for 1 day ORAL CONTRAST: No oral contrast ingested. RADIATION DOSE: 27.88 CTDIvol (mGy) ; Patient body habitus MEDICAL HISTORY : Congestive heart failure. Chronic obstructive pulmonary disease. Hypertension. SURGICAL HISTORY : Cholecystectomy. ENCOUNTER: Initial ACUITY: 1 day PAIN SCALE: 8/10 LOCATION: abdomen TECHNIQUE: Volumetric scanning of the abdomen and pelvis was performed. Using automated exposure control and ad justment of the mA and/or kV according to patient size, radiation dose was kept as low as reasonably achievable to obtain optimal diagnostic quality images. DICOM format image data is available electro nically for review and comparison. FINDINGS: LOWER LUNGS: The visualized lower lungs are clear. LIVER: Homogeneous density without lesion. There is no dilation of the biliary tree. Status post cholecyste ctomy. SPLEEN: Normal size without lesion. PANCREAS: Within normal limits. KIDNEYS: Normal in size and shape. There is no mass, stone, or hydronephrosis. ADRENAL GLANDS: Within normal limits. VASCULAR: There is no aortic aneurysm. BOWEL/MESENTERY: No oral contrast was given limiting the sensitivity the exam. The stomach, small bowel, and colon dem onstrate no acute abnormality. There is no free intraperitoneal air or fluid. ABDOMINAL WALL: Within normal limits. RETROPERITONEUM: There is no lymphadenopathy. BLADDER: No wall thickening or mass. REPRODUCTIVE: Within normal limits. INGUINAL: There is no lymphadenopathy or hernia. MUSCULOSKELETAL: Within normal limits for patient age. CONCLUSION: 1. Mild diverticulosis with no focal inflammatory change or obstruction. There is a normal appendix. Status post cholecystectomy. 2. Normal appendix 3. Mild hepatic steatosis. 4. No renal calculi or obstruction. Zenon Martinez MD on January 21, 2017 at 20:21 Board Certified Radiologist. This report was verified electronically.
[2017-01-21] MEDS ORDERED: TRAM50 PO (20:34)
[2017-01-21] MEDS ORDERED: ZOFR4TAB3 SL (20:34)
[2017-01-21 21:00] VITALS: BP 142/75
--- NOTE | 2017-01-22 12:07 | EKG ---
Date Performed: 01/21/2017 Time Performed: 19:37:13 PTAGE: 46 years EKG: Sinus rhythm POSSIBLE RIGHT VENTRICULAR CONDUCTION DELAY Compared to previous tracing sinus rate is slower BORDER LINE ECG PREVIOUS TRACING : 12/31/2016 22.24 DOCTOR: Isaiah Johnston Interpretating Date/Time 01/22/2017 12:07:05
== END 2017-01-21 21:03 | disposition home or self-care (01) ==
LOC: PHED 19:07
DX: K57.90 Diverticulosis of intestine, part unspecified, without perforation or abscess without bleeding (principal); I11.0 Hypertensive heart disease with heart failure; I50.9 Heart failure, unspecified; Z87.891 Personal history of nicotine dependence
CPT/HCPCS: 74176; 80053; 81001; 83690; 85025; 85610; 85730; 93005; 96361; 96374; 96375; 99285; J2270; J2405; J7030

== ENCOUNTER 2017-01-25 20:30 | Emergency (ER) | payer SELFPAY ==
[~2017-01-25] VITALS: Ht 182.9 cm; Wt 156.0 kg
[~2017-01-25 20:30] MED LIST changes: -PRED10PA2 PO; +TRAM50 PO; +ZOFR4TAB3 SL
[2017-01-25 20:44] VITALS: BP 155/97; PULSE 103; RESP 18; TEMP 97.6; O2SAT 97
[2017-01-25 21:35] VITALS: BP 168/93; PULSE 88; RESP 16; O2SAT 96
[2017-01-25] MEDS ORDERED: SODIUM CHLORIDE 0.9% FLUSH 10 ML FLUSH IV FLUSH PRN (22:00)
[2017-01-25 22:09] LABS: AUTOMATED NEUTROPHIL # 4.5 TH/MM3 (1.8-7.7); BASOPHIL # 0.1 TH/MM3 (0-0.2); BASOPHIL % 0.8 % (0.0-2.0); EOSINOPHIL # 0.3 TH/MM3 (0-0.4); EOSINOPHIL % 4.3 % (0.0-4.0); HEMATOCRIT 41.6 % (39.0-51.0); LYMPHOCYTE # 1.6 TH/MM3 (1.0-4.8); MEAN CELL VOLUME 93.4 FL (80.0-100.0); MEAN CORPUSCULAR HEMOGLOBIN 32.1 PG (27.0-34.0); MEAN CORPUSCULAR HGB CONC 34.4 % (32.0-36.0); MONO % 7.1 % (0.0-8.0); NEUT % 64.8 % (16.0-70.0); PLATELET COUNT 180 TH/MM3 (150-450); RED BLOOD COUNT 4.46 MIL/MM3 (4.50-5.90); RED CELL DISTRIBUTION WIDTH 12.6 % (11.6-17.2)
[2017-01-25 22:28] LABS: HEMO FLAGS DIFF FINAL
--- NOTE | 2017-01-25 22:33 | RADRPT ---
EXAM DATE/TIME: 01/25/2017 22:04 [facility] COMPARISON: CT ABDOMEN & PELVIS W/O CONTRAST, January 21, 2017, 19:53. INDICATIONS : Abdominal pain. MEDICAL HISTORY : Congestive heart failure. Chronic obstructive pulmonary disease. Hypertension. SURGICAL HISTORY : Cholecystectomy. ENCOUNTER: Initial ACUITY: 1 week PAIN SCORE: 4/10 LOCATION: abdomen, umbilical FINDINGS: Supine and upright views of the abdomen demonstrate air within small and large bowel in a nonobstruct guillermo pattern. No the liver is enlarged but no abnormal calcifications are identified. No abnormal mass effect is appreciated. Upright image demonstrates no free intraperitoneal air or significant air-flu id level. Cholecystectomy clips are present. Visualized bones demonstrate no acute finding and lower lung zones are clear. EKG lines overlie the patient. CONCLUSION: No acute finding is identified within the abdomen. Dickson Cunningham MD on January 25, 2017 at 22:29 Board Certified Radiologist. This report was verified electronically.
[2017-01-25 22:41] LABS: CHLORIDE 105 MEQ/L (98-107); SODIUM (NA) 139 MEQ/L (136-145)
[2017-01-25 22:42] LABS: BLOOD, URINE NEG (NEG); GLUCOSE,URINE NEG (NEG); KETONE, URINE TRACE mg/dL (NEG); NITRITE,URINE NEG (NEG); PH, URINE 7.5 (5.0-8.5)
[2017-01-25 22:44] LABS: ANION GAP 6 MEQ/L (5-15); BICARBONATE 28.5 MEQ/L (21.0-32.0)
[2017-01-25 22:45] LABS: BLOOD UREA NITROGEN 10 MG/DL (7-18)
[2017-01-25 22:47] LABS: ALT (GPT) 35 U/L (12-78); AST (GOT) 12 U/L (15-37); GLOMERULAR FILTRATION RATE 71 ML/MIN (>89)
[2017-01-25 22:47] LABS: URINE COLOR YELLOW (YELLW/STRAW)
[2017-01-25 22:48] LABS: COMMENT (UR) CULT NOT INDICATED; CULTURE IF INDICATED CULT NOT INDICATED; SQUAMOUS EPITHELIAL CELL URINE 0-5 /hpf (0-5)
[2017-01-25 22:49] LABS: TOTAL BILIRUBIN ADULT 0.3 MG/DL (0.2-1.0)
[2017-01-25 22:50] LABS: ALKALINE PHOSPHATASE 108 U/L (45-117)
[2017-01-25] MEDS ORDERED: PANTOPRAZOLE SODIUM 40 MG VIAL IV PUSH ONE (23:00)
[2017-01-25] MEDS ORDERED: KETOROLAC TROMETHAMINE 30 MG/ML (IVP) VIAL IV PUSH ONE (23:00)
[2017-01-25 23:10] VITALS: BP 134/86; PULSE 83; RESP 16; O2SAT 97
--- NOTE | 2017-01-25 23:20 | PD ---
HPI Chief Complaint: Abdominal Pain Time Seen by Provider: 21:57 Travel History International Travel<30 days: No Contact w/Intl Traveler<30days: No Traveled to known affect area: No History of Present Illness HPI 46-year-old male presents with complaint of abdominal pain after being treated for diverticulosis/diverticulitis. Patient reports that he has history of CHF and COPD but is not any respiratory distress and having no chest pain. Patient denies flank pain. Patient's had no fever or chills. Patient recently seen and treated with antibiotic for possible diverticulitis. Patient denies dysuria frequency urgency flank pain or hematuria. Patient rates discomfort 8/ 10 in intensity. Patient is unable to identify exacerbating or alleviating factors. PFSH Past Medical History Narrative Medical migraines brain implant for migraines seizure COPD cardiomyopathy CHF anxiety depression; alcohol use no tobacco use; nursing notes reviewed Asthma: Yes Autoimmune Disease: No Blood Disorders: No Anxiety: No Depression: Yes Cancer: No Cardiomyopathy: Yes Cardiovascular Problems: Yes Congestive Heart Failure: Yes COPD: Yes Diminished Hearing: No Endocrine: No Gastrointestinal Disorders: No Genitourinary: No Headaches: Yes Hypertension: Yes Immune Disorder: No Implanted Vascular Access Dvce: Yes Musculoskeletal: Yes Neurologic: Yes Psychiatric: Yes Reproductive: No Respiratory: Yes (COPD) Immunizations Current: Yes Migraines: Yes Seizures: Yes Influenza Vaccination: Yes PNEUMOCCOCAL Vaccine (Year): 2 Past Surgical History Abdominal Surgery: No AICD: No Arteriovenous Shunt: No Body Medical Devices: IMPLANT FOR MIGRAINES none now Cardiac Surgery: No Cholecystectomy: Yes Ear Surgery: No Endocrine Surgery: No Eye Surgery: No Genitourinary Surgery: No Gynecologic Surgery: No Insulin Pump: No Joint Replacement: No Neurologic Surgery: Yes (BRAIN IMPLANT FOR MIGRAINES-HAS BEEN REMOVED) Oral Surgery: No Pacemaker: No Thoracic Surgery: No Other Surgery: Yes (REMOVAL OF BRAIN IMPLANT BECAUSE IT CAUSED SEIZURES) Social History Alcohol Use: Yes (2 X MONTH) Tobacco Use: No (QUIT AGE 2011) Substance Use: No Allergies-Medications (Allergen,Severity, Reaction): Coded Allergies: caffeine (Unverified Allergy, Severe, RASH, 01/25/17) codeine (Unverified Allergy, Severe, Itching, 01/25/17) propoxyphene (Unverified Allergy, Severe, ABD. CRAMS, 01/25/17) Reported Meds & Prescriptions Reported Meds & Active Scripts Active Ultram (Tramadol HCl) 50 Mg Tab 50 Mg PO Q6H PRN Zofran Odt (Ondansetron Odt) 4 Mg Tab 4 Mg SL Q6HR PRN Reported Duoneb (Ipratropium-Albuterol Neb) 0.5-2.5 Mg/3 Ml Neb 1 Nebule INH Q6HR NEB Aspirin 81 (Aspirin) 81 Mg Tabdr 81 Mg PO DAILY Norvasc (Amlodipine Besylate) 10 Mg Tab 10 Mg PO DAILY Lisinopril 10 Mg Tab 10 Mg PO DAILY Review of Systems Except as stated in HPI: all other systems reviewed are Neg General / Constitutional: No: Fever, Chills HENT: No: Congestion Cardiovascular: No: Chest Pain or Discomfort Respiratory: No: Shortness of Breath Gastrointestinal: Positive: Abdominal Pain, No: Nausea, Vomiting Genitourinary: No: Flank Pain Musculoskeletal: No: Myalgias, Arthralgias Skin: No Rash Neurologic: No: Weakness Physical Exam Narrative GENERAL: Well-developed well-nourished male in no acute distress no respiratory distress SKIN: Warm and dry. HEAD: Normocephalic. EYES: No scleral icterus. No injection or drainage. NECK: Supple, trachea midline. No JVD or lymphadenopathy. CARDIOVASCULAR: Regular rate and rhythm without murmurs, gallops, or rubs. RESPIRATORY: Breath sounds equal bilaterally. No accessory muscle use. GASTROINTESTINAL: Abdomen soft, non-tender, nondistended. MUSCULOSKELETAL: No cyanosis, or edema. BACK: Nontender without obvious deformity. No CVA tenderness. Data Data Last Documented VS Vital Signs Date Time Temp Pulse Resp B/P (MAP) Pulse Ox O2 Delivery O2 Flow Rate FiO2 01/25/17 23:40 01/25/17 23:10 83 16 97 Room Air 01/25/17 20:44 97.6 Orders Orders Complete Blood Count With Diff (01/25/17 21:57) Comprehensive Metabolic Panel (01/25/17 21:57) Lipase (01/25/17 21:57) Urinalysis - C+S If Indicated (01/25/17 21:57) Abdomen, Flat & Upright (01/25/17 ) Iv Access Insert/Monitor (01/25/17 21:57) Ecg Monitoring (01/25/17 21:57) Oximetry (01/25/17 21:57) Sodium Chloride 0.9% Flush (Ns Flush) (01/25/17 22:00) Ketorolac Inj (Toradol Inj) (01/25/17 23:00) Pantoprazole Inj (Protonix Inj) (01/25/17 23:00) Ed Discharge Order (01/25/17 23:35) Labs Laboratory Tests Test 01/25/17 21:40 01/25/17 22:25 White Blood Count 7.0 TH/MM3 Red Blood Count 4.46 MIL/MM3 Hemoglobin 14.3 GM/DL Hematocrit 41.6 % Mean Corpuscular Volume 93.4 FL Mean Corpuscular Hemoglobin 32.1 PG Mean Corpuscular Hemoglobin Concent 34.4 % Red Cell Distribution Width 12.6 % Platelet Count 180 TH/MM3 Mean Platelet Volume 9.9 FL Neutrophils (%) (Auto) 64.8 % Lymphocytes (%) (Auto) 23.0 % Monocytes (%) (Auto) 7.1 % Eosinophils (%) (Auto) 4.3 % Basophils (%) (Auto) 0.8 % Neutrophils # (Auto) 4.5 TH/MM3 Lymphocytes # (Auto) 1.6 TH/MM3 Monocytes # (Auto) 0.5 TH/MM3 Eosinophils # (Auto) 0.3 TH/MM3 Basophils # (Auto) 0.1 TH/MM3 CBC Comment DIFF FINAL Differential Comment Blood Urea Nitrogen 10 MG/DL Creatinine 1.10 MG/DL Random Glucose 98 MG/DL Total Protein 7.4 GM/DL Albumin 3.4 GM/DL Calcium Level 8.5 MG/DL Alkaline Phosphatase 108 U/L Aspartate Amino Transf (AST/SGOT) 12 U/L Alanine Aminotransferase (ALT/SGPT) 35 U/L Total Bilirubin 0.3 MG/DL Sodium Level 139 MEQ/L Potassium Level 4.0 MEQ/L Chloride Level 105 MEQ/L Carbon Dioxide Level 28.5 MEQ/L Anion Gap 6 MEQ/L Estimat Glomerular Filtration Rate 71 ML/MIN Lipase 190 U/L Urine Color YELLOW Urine Turbidity CLEAR Urine pH 7.5 Urine Specific [place] 1.023 Urine Protein NEG mg/dL Urine Glucose (UA) NEG mg/dL Urine Ketones TRACE mg/dL Urine Occult Blood NEG Urine Nitrite NEG Urine Bilirubin NEG Urine Leukocyte Esterase NEG Urine Squamous Epithelial Cells 0-5 /hpf Microscopic Urinalysis Comment CULT NOT INDICATED MDM Medical Decision Making Medical Screen Exam Complete: Yes Emergency Medical Condition: Yes Medical Record Reviewed: Yes Interpretation(s) Urinalysis: Normal Last Impressions Abdomen X-Ray 01/25/17 0000 Signed Impressions: Service Date/Time: Wednesday, January 25, 2017 22:04 - CONCLUSION: No acute finding is identified within the abdomen. Dickson Cunningham MD CBC & BMP Diagram 01/25/17 21:40 Total Protein 7.4, Albumin 3.4, Calcium Level 8.5, Alkaline Phosphatase 108, Aspartate Amino Transf (AST/SGOT) 12 L, Alanine Aminotransferase (ALT/SGPT) 35, Total Bilirubin 0.3 Vital Signs Date Time Temp Pulse Resp B/P (MAP) Pulse Ox O2 Delivery O2 Flow Rate FiO2 01/25/17 23:10 83 16 134/86 (102) 97 Room Air 01/25/17 21:35 88 16 168/93 (118) 96 Room Air 01/25/17 21:35 16 96 Room Air 01/25/17 21:34 16 01/25/17 20:44 97.6 103 18 155/97 (116) 97 Differential Diagnosis Abdominal pain, colitis, diverticulitis, pancreatitis, choledocholithiasis, gastritis, peptic ulcer disease Narrative Course IV access obtained specimens collected and sent for resulting Patient administered Toradol and Protonix CBC was automated differential values are normal range metabolic panel values are normal range urinalysis values are normal range abdominal flat and upright no evidence for obstruction review of CT abdomen and pelvis from from 01/21/17 reveals no acute abnormality normal appearance, cholecystectomy, diverticulosis without diverticulitis. Results are discussed with patient patient stable for outpatient management and follow-up with his primary care provider and kiln mechanic Diagnosis Primary Impression: Abdominal pain Referrals: Skip Operator call for appointment Primary Care Physician call for appointment Patient Instructions: General Instructions Additional Instructions: Recommend use of [id number] Zantac 150 twice daily for 14 days Follow-up with your primary care provider and follow up with kiln mechanic Return to the emergency for any concerns or change in condition May take as tolerated acetaminophen/Tylenol for fever 100.4F or greater or for minor pain Med/Other Pt SpecificInfo: No Change to Meds Disposition: 01 DISCHARGE HOME Condition: Stable Melissa Rubin MD Jan 25, 2017 23:20
== END 2017-01-25 23:42 | disposition home or self-care (01) ==
LOC: PHED 20:30
DX: R10.9 Unspecified abdominal pain (principal); I10 Essential (primary) hypertension; Z87.09 Personal history of other diseases of the respiratory system; Z86.59 Personal history of other mental and behavioral disorders; Z86.79 Personal history of other diseases of the circulatory system; Z87.39 Personal history of other diseases of the musculoskeletal system and connective tissue; Z86.69 Personal history of other diseases of the nervous system and sense organs
CPT/HCPCS: 74020; 80053; 81001; 83690; 85025; 96374; 96375; 99284; C9113; J1885

== ENCOUNTER 2017-02-08 00:35 | Observation (INO) | payer SELFPAY ==
[~2017-02-08] VITALS: Ht 182.9 cm; Wt 156.0 kg
[2017-02-08] VITALS (10 sets, daily range): BP systolic 138–198; BP diastolic 77–113; PULSE 78–105; RESP 18–20; TEMP 96.1–97.6; O2SAT 97–98
[~2017-02-08 00:35] MED LIST changes: -GABA100C4 PO; -PERC10TA27 PO
--- NOTE | 2017-02-08 00:53 | PD ---
HPI Chief Complaint: Chest Pain Time Seen by Provider: 00:49 Travel History International Travel<30 days: No Contact w/Intl Traveler<30days: No Traveled to known affect area: No History of Present Illness HPI 46-year-old male patient with history of hypertension, COPD, CHF, presents to the ER today with a 8 out of 10 substernal chest pains that started when he woke up this evening. He states that he is having discomfort with breathing. He denies any coughing, fevers, or any other symptoms. He denies any worsening leg swelling or other symptoms. Modifying Factors: Worse with breathing Associated Signs & Symptoms: Chest discomfort, shortness of breath, dyspnea Risk Factors: COPD, CHF PFSH Past Medical History Asthma: Yes Autoimmune Disease: No Blood Disorders: No Anxiety: No Depression: Yes Cancer: No Cardiomyopathy: Yes Cardiovascular Problems: Yes Congestive Heart Failure: Yes COPD: Yes Diminished Hearing: No Endocrine: No Gastrointestinal Disorders: No Genitourinary: No Headaches: Yes Hypertension: Yes Immune Disorder: No Implanted Vascular Access Dvce: Yes Musculoskeletal: Yes Neurologic: Yes Psychiatric: Yes Reproductive: No Respiratory: Yes (COPD) Immunizations Current: Yes Migraines: Yes Seizures: Yes Tetanus Vaccination: < 5 Years Influenza Vaccination: Yes PNEUMOCCOCAL Vaccine (Year): 2 Past Surgical History Abdominal Surgery: No AICD: No Arteriovenous Shunt: No Body Medical Devices: IMPLANT FOR MIGRAINES none now Cardiac Surgery: No Cholecystectomy: Yes Ear Surgery: No Endocrine Surgery: No Eye Surgery: No Genitourinary Surgery: No Gynecologic Surgery: No Insulin Pump: No Joint Replacement: No Neurologic Surgery: Yes (BRAIN IMPLANT FOR MIGRAINES-HAS BEEN REMOVED) Oral Surgery: No Pacemaker: No Thoracic Surgery: No Other Surgery: Yes (brain, implanted device for mirgaine, removed ) Social History Alcohol Use: No Tobacco Use: No Substance Use: No Allergies-Medications (Allergen,Severity, Reaction): Coded Allergies: caffeine (Verified Allergy, Severe, RASH, 02/08/17) codeine (Verified Allergy, Severe, Itching, 02/08/17) propoxyphene (Verified Allergy, Severe, ABD. CRAMS, 02/08/17) Reported Meds & Prescriptions Reported Meds & Active Scripts Active Reported Lisinopril 20 Mg Tab 20 Mg PO DAILY Aspirin 81 (Aspirin) 81 Mg Tabdr 81 Mg PO DAILY Review of Systems Except as stated in HPI: all other systems reviewed are Neg Physical Exam Narrative GENERAL: Well-developed middle age white male patient currently in moderate distress. Awake and oriented 3. SKIN: Focused skin assessment warm/dry. HEAD: Atraumatic. Normocephalic. EYES: Pupils equal and round. No scleral icterus. No injection or drainage. ENT: No nasal bleeding or discharge. Mucous membranes pink and moist. NECK: Trachea midline. No JVD. CARDIOVASCULAR: Regular rate and rhythm. No murmur appreciated. RESPIRATORY: Mild accessory muscle use. Decreased throughout without wheezing, crackles or rhonchi. Breath sounds equal bilaterally. GASTROINTESTINAL: Abdomen soft, non-tender, nondistended. Hepatic and splenic margins not palpable. MUSCULOSKELETAL: No obvious deformities. No clubbing. No cyanosis. No edema. NEUROLOGICAL: Awake and alert. No obvious cranial nerve deficits. Motor grossly within normal limits. Normal speech. PSYCHIATRIC: Appropriate mood and affect; insight and judgment normal. Data Data Last Documented VS Vital Signs Date Time Temp Pulse Resp B/P (MAP) Pulse Ox O2 Delivery O2 Flow Rate FiO2 02/08/17 02:03 88 18 138/78 (98) 98 02/08/17 00:51 Nasal Cannula 2.00 02/08/17 00:44 97.6 Orders Orders Electrocardiogram (02/08/17 00:49) B-Type Natriuretic Peptide (02/08/17 00:49) Ckmb (Isoenzyme) Profile (02/08/17 00:49) Complete Blood Count With Diff (02/08/17 00:49) Comprehensive Metabolic Panel (02/08/17 00:49) D-Dimer (02/08/17 00:49) Magnesium (Mg) (02/08/17 00:49) Prothrombin Time / Inr (Pt) (02/08/17 00:49) Act Partial Throm Time (Ptt) (02/08/17 00:49) Troponin I (02/08/17 00:49) Chest, Single Ap (02/08/17 00:49) Ecg Monitoring (02/08/17 00:49) Bilateral Bp Monitoring (02/08/17 00:49) Iv Access Insert/Monitor (02/08/17 00:49) Oximetry (02/08/17 00:49) Oxygen Administration (02/08/17 00:49) Aspirin (Aspirin) (02/08/17 01:00) Nitroglycerin 2% Oint (Nitroglycerin 2% (02/08/17 01:00) Sodium Chloride 0.9% Flush (Ns Flush) (02/08/17 01:00) Morphine Inj (Morphine Inj) (02/08/17 01:15) Admit Order (Ed Use Only) (02/08/17 02:34) Activity Bed Rest With Brp (02/08/17 02:34) Vital Signs (Adult) Q4H (02/08/17 02:34) Cardiac Rhythm .As Directed (02/08/17 02:34) Notify Dr: Other .PRN (02/08/17 02:34) Notify Dr. Parameters (02/08/17 02:34) Resp Oxygen Nasal Cannula (02/08/17 ) Diet Heart Healthy (02/08/17 Breakfast) Ckmb (Isoenzyme) Profile (02/08/17 02:34) Ckmb (Isoenzyme) Profile (02/08/17 05:34) Troponin I (02/08/17 02:34) Troponin I (02/08/17 05:34) Electrocardiogram (02/08/17 02:34) Electrocardiogram (02/08/17 05:34) ^ Obtain (02/08/17 02:34) Sodium Chloride 0.9% Flush (Ns Flush) (02/08/17 02:45) Sodium Chloride 0.9% Flush (Ns Flush) (02/08/17 09:00) Nitroglycerin 2% Oint (Nitroglycerin 2% (02/08/17 06:00) Nitroglycerin Sl (Nitrostat Sl) (02/08/17 02:45) Aspirin (Aspirin) (02/08/17 09:00) Product Coordinator / Telemetry WALE.Q8H (02/08/17 02:34) Labs Laboratory Tests Test 02/08/17 00:50 White Blood Count 5.7 TH/MM3 Red Blood Count 4.72 MIL/MM3 Hemoglobin 15.4 GM/DL Hematocrit 44.7 % Mean Corpuscular Volume 94.6 FL Mean Corpuscular Hemoglobin 32.7 PG Mean Corpuscular Hemoglobin Concent 34.6 % Red Cell Distribution Width 12.7 % Platelet Count 184 TH/MM3 Mean Platelet Volume 10.6 FL Neutrophils (%) (Auto) 51.8 % Lymphocytes (%) (Auto) 34.0 % Monocytes (%) (Auto) 8.1 % Eosinophils (%) (Auto) 4.9 % Basophils (%) (Auto) 1.2 % Neutrophils # (Auto) 2.9 TH/MM3 Lymphocytes # (Auto) 1.9 TH/MM3 Monocytes # (Auto) 0.5 TH/MM3 Eosinophils # (Auto) 0.3 TH/MM3 Basophils # (Auto) 0.1 TH/MM3 CBC Comment DIFF FINAL Differential Comment Prothrombin Time 10.6 SEC Prothromb Time International Ratio 1.0 RATIO Activated Partial Thromboplast Time 26.5 SEC D-Dimer Quantitative (PE/DVT) 0.19 MG/L FEU Blood Urea Nitrogen 12 MG/DL Creatinine 0.90 MG/DL Random Glucose 97 MG/DL Total Protein 7.8 GM/DL Albumin 3.8 GM/DL Calcium Level 8.3 MG/DL Magnesium Level 1.9 MG/DL Alkaline Phosphatase 125 U/L Aspartate Amino Transf (AST/SGOT) 25 U/L Alanine Aminotransferase (ALT/SGPT) 42 U/L Total Bilirubin 0.3 MG/DL Sodium Level 138 MEQ/L Potassium Level 4.2 MEQ/L Chloride Level 104 MEQ/L Carbon Dioxide Level 23.2 MEQ/L Anion Gap 11 MEQ/L Estimat Glomerular Filtration Rate 90 ML/MIN Total Creatine Kinase 81 U/L Troponin I LESS THAN 0.02 NG/ML B-Type Natriuretic Peptide LESS THAN 2 PG/ML MDM Medical Decision Making Medical Screen Exam Complete: Yes Emergency Medical Condition: Yes Medical Record Reviewed: Yes Interpretation(s) EKG shows normal sinus rhythm at a rate of 96 bpm with no signs of acute ST-T changes. Laboratory Tests Test 02/08/17 00:50 Monocytes (%) (Auto) 8.1 % (0.0-8.0) Eosinophils (%) (Auto) 4.9 % (0.0-4.0) Calcium Level 8.3 MG/DL (8.5-10.1) Alkaline Phosphatase 125 U/L (45-117) Troponin I LESS THAN 0.02 NG/ML Last 24 hours Impressions Chest X-Ray 02/08/17 0049 Signed Impressions: Service Date/Time: Wednesday, February 08, 2017 01:01 - CONCLUSION: No evidence of acute cardiopulmonary disease. Dickson Dwyer MD Differential Diagnosis Chest pains, dyspnea: COPD exacerbation versus pneumonia versus CHF exacerbation versus ACS versus hypertensive urgency Narrative Course Chest x-ray did not show any signs of acute pulmonary issues. D-dimer is negative. Cardiac enzymes are unremarkable. EKG did not show any signs of acute ST-T changes. Patient was given aspirin, nitroglycerin, and morphine in the ER. His chest pain has improved significantly and is currently a 4-5 out of 10. At this point, considering his history, my plan would be to admit him for further evaluation of chest pain in the chest pain center. Case was discussed with Dr. Peterson for admission. Diagnosis Primary Impression: Chest pain Admitting Information Admitting Physician Requests: Admit Minh Solano MD Feb 08, 2017 00:53
[2017-02-08] MEDS ORDERED: LISI-515 PO (00:55)
[2017-02-08] MEDS ORDERED: SODIUM CHLORIDE 0.9% FLUSH 10 ML FLUSH IVF PRN (01:00)
[2017-02-08] MEDS ORDERED: ASPIRIN 325 MG TAB PO ONE (01:00)
[2017-02-08] MEDS ORDERED: NITROGLYCERIN 2% OINT 1 GM PACKET TOP ONE (01:00)
--- NOTE | 2017-02-08 01:11 | RADRPT ---
EXAM DATE/TIME: 02/08/2017 01:01 [facility] COMPARISON: CHEST SINGLE AP, December 31, 2016, 22:34. INDICATIONS : Chest pain. MEDICAL HISTORY : Chronic obstructive pulmonary disease. Congestive heart failure. Hypertension. SURGICAL HISTORY : None. ENCOUNTER: Initial ACUITY: 1 day PAIN SCORE: 6/10 LOCATION: Left chest FINDINGS: A single view of the chest demonstrates the lungs to be symmetrically aerated without evidence of mas s, infiltrate or effusion. The cardiomediastinal contours are unremarkable. Osseous structures are intact. CONCLUSION: No evidence of acute cardiopulmonary disease. Dickson Dwyer MD on February 08, 2017 at 1:09 Board Certified Radiologist. This report was verified electronically.
[2017-02-08] MEDS ORDERED: MORPHINE SULFATE 2 MG/ML INJ IV PUSH ONE (01:15)
[2017-02-08 01:30] LABS: AUTOMATED NEUTROPHIL # 2.9 TH/MM3 (1.8-7.7); BASOPHIL # 0.1 TH/MM3 (0-0.2); BASOPHIL % 1.2 % (0.0-2.0); EOSINOPHIL # 0.3 TH/MM3 (0-0.4); EOSINOPHIL % 4.9 % (0.0-4.0); HEMATOCRIT 44.7 % (39.0-51.0); HEMO FLAGS DIFF FINAL; LYMPHOCYTE # 1.9 TH/MM3 (1.0-4.8); MEAN CELL VOLUME 94.6 FL (80.0-100.0); MEAN CORPUSCULAR HEMOGLOBIN 32.7 PG (27.0-34.0); MEAN CORPUSCULAR HGB CONC 34.6 % (32.0-36.0); MONO % 8.1 % (0.0-8.0); NEUT % 51.8 % (16.0-70.0); PLATELET COUNT 184 TH/MM3 (150-450); RED BLOOD COUNT 4.72 MIL/MM3 (4.50-5.90); RED CELL DISTRIBUTION WIDTH 12.7 % (11.6-17.2); WHITE BLOOD COUNT 5.7 TH/MM3 (4.0-11.0)
[2017-02-08 01:40] LABS: CHLORIDE 104 MEQ/L (98-107); POTASSIUM 4.2 MEQ/L (3.5-5.1); SODIUM (NA) 138 MEQ/L (136-145)
[2017-02-08 01:45] LABS: ANION GAP 11 MEQ/L (5-15); BICARBONATE 23.2 MEQ/L (21.0-32.0); BLOOD UREA NITROGEN 12 MG/DL (7-18); MAGNESIUM 1.9 MG/DL (1.5-2.5)
[2017-02-08 01:48] LABS: ALT (GPT) 42 U/L (12-78); APTT (PATIENT) 26.5 SEC (24.3-30.1); AST (GOT) 25 U/L (15-37); GLOMERULAR FILTRATION RATE 90 ML/MIN (>89); PROTHROMBIN TIME - PATIENT 10.6 SEC (9.8-11.6)
[2017-02-08 01:49] LABS: TOTAL BILIRUBIN ADULT 0.3 MG/DL (0.2-1.0)
[2017-02-08 01:51] LABS: ALKALINE PHOSPHATASE 125 U/L (45-117)
[2017-02-08 02:02] LABS: CREATINE KINASE 81 U/L (39-308)
[2017-02-08] MEDS ORDERED: SODIUM CHLORIDE 0.9% FLUSH 10 ML FLUSH IV FLUSH PRN (02:45)
[2017-02-08] MEDS ORDERED: NITROGLYCERIN 0.4 MG SL 25 TABS/BTL SL PRN (02:45)
[2017-02-08] MEDS ORDERED: MORPHINE SULFATE 2 MG/ML INJ IV PUSH PRN (05:30)
[2017-02-08] MEDS: NITROGLYCERIN 2% OINT 1 GM PACKET TOP SCH ×2 (05:34→12:00)
[2017-02-08 05:50] LABS: CREATINE KINASE 67 U/L (39-308)
[2017-02-08 07:56] LABS: CREATINE KINASE 53 U/L (39-308)
[2017-02-08] MEDS ORDERED: KETOROLAC TROMETHAMINE 60 MG/2 ML (IM) VIAL IM ONE (08:45)
--- NOTE | 2017-02-08 08:47 | HHI.HP ---
[facility] No Primary Care Physician Admission Diagnosis Chest pain Diagnoses: (1) Chest pain Chief Complaint: Chest pain Travel History International Travel<30 Days: No Contact w/Intl Traveler <30 Da: No Traveled to Known Affected Are: No History of Present Illness Written by Moon Carvajal, acting as scribe for Dr. Ramirez on 02/08/17 at 08: 50. Mr. Morris is a 46-year-old male patient with a known medical history of HTN , COPD and CHF who presented to the ED with complaints of chest pain. Patient states as he was lying in bed last evening around 2200 he noticed a sudden, sharp chest pain occur in his midsternal chest that radiated to his left sided chest and to his back, he rated the pain an 8/10 on pain scale, constant in nature. Patient states that activity and inspiration aggravate the pain. Was given nitroglycerin, aspirin and morphine in the ED which has sightly improved the pain. At the time of assessment patient states the pain is still present but more mild, rated a 5/10 on pain scale. Admits to associated nausea, denies vomiting or diaphoresis. Does state he has had this pain before. Admits to undergoing a chemical stress test back in July of this year and upon review of the record there was no presence of ischemia with an EF of 50%. Pain is reproducible on palpation to mid-left chest wall. Patient does not have a PCP, CM has been assisting with obtaining an appointment for patient at the clinic. Does not follow with a service delivery director. 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 CRAMS, 02/08/17) Active Ordered Medications Current Medications Medications (Trade) Dose Ordered Sig/Cecilia Route Start Time Stop Time Status Last Admin (NS Flush) 2 ml UNSCH PRN IV FLUSH 02/08/17 02:45 (NS Flush) 2 ml BID IV FLUSH 02/08/17 09:00 (Nitroglycerin 2% Oint) 1 inch Q6HR TOP 02/08/17 06:00 (Nitrostat Sl) 0.4 mg Q5M PRN SL 02/08/17 02:45 02/08/17 05:12 (Aspirin) 325 mg DAILY PO 02/08/17 09:00 Family History Denies any significant family medical history. Social History Quit smoking 5 years ago, prior to that he smoked on pack of cigarettes since his teens. Admits to drinking alcohol socially. Denies any illicit drug use. Physical Exam Vital Signs Vital Signs Date Time Temp Pulse Resp B/P (MAP) Pulse Ox O2 Delivery O2 Flow Rate FiO2 02/08/17 07:45 98 21 02/08/17 03:30 98 Nasal Cannula 2.00 02/08/17 03:26 83 02/08/17 03:17 02/08/17 03:15 98 Nasal Cannula 2.00 02/08/17 03:00 96.1 83 20 139/80 (99) 97 02/08/17 02:44 89 18 158/85 (109) 98 Nasal Cannula 2.00 02/08/17 02:03 88 18 138/78 (98) 98 02/08/17 00:51 198/113 (141) 150/109 (123) 02/08/17 00:51 98 Nasal Cannula 2.00 02/08/17 00:51 98 Nasal Cannula 2.00 02/08/17 00:47 20 98 Room Air 02/08/17 00:44 97.6 105 20 198/113 (930) 98 Physical Exam GENERAL: Well-developed, obese with BMI 46.6, in no acute distress. alert and orientated HEENT: Head is normocephalic without any lesions or masses noted. Facial features are symmetric. Eyes: Pupils equal round reactive to light. Extraocular muscles are intact. Conjunctivae were clear. Oropharyngeal: Pharynx without any erythema edema. Tongue is midline without deviation. Buccal mucosa is moist without any masses or lesions NECK: Supple without any masses. Trachea midline no deviation. No JVD, no bruits are appreciated CARDIAC: Regular rhythm, regular rate. S1/S2 are heard. No murmurs gallops or rubs. Reproducible palpable tenderness noted along left sternal border and midsternal chest wall. LUNGS: Clear to auscultation bilaterally. No wheeze, rhonchi or rales. No use of accessory muscles on inspiration or expiration. ABDOMEN: Soft, nontender. Nondistended. Bowel sounds heard in all 4 quadrants. No organomegaly or masses. Negative rebound, negative guarding EXTREMITIES: No edema, pulses are equal bilaterally. No cyanosis or clubbing NEUROLOGY: Mood and affect appear appropriate. Cranial nerves II through XII grossly intact. Muscle strength 5/5 in upper and lower extremities bilaterally. Deep tendon reflexes are 2+ in upper and lower extremities bilaterally. Laboratory Laboratory Tests Test 02/08/17 00:50 02/08/17 03:50 02/08/17 07:20 White Blood Count 5.7 Red Blood Count 4.72 Hemoglobin 15.4 Hematocrit 44.7 Mean Corpuscular Volume 94.6 Mean Corpuscular Hemoglobin 32.7 Mean Corpuscular Hemoglobin Concent 34.6 Red Cell Distribution Width 12.7 Platelet Count 184 Mean Platelet Volume 10.6 Neutrophils (%) (Auto) 51.8 Lymphocytes (%) (Auto) 34.0 Monocytes (%) (Auto) 8.1 Eosinophils (%) (Auto) 4.9 Basophils (%) (Auto) 1.2 Neutrophils # (Auto) 2.9 Lymphocytes # (Auto) 1.9 Monocytes # (Auto) 0.5 Eosinophils # (Auto) 0.3 Basophils # (Auto) 0.1 CBC Comment DIFF FINAL Differential Comment Prothrombin Time 10.6 Prothromb Time International Ratio 1.0 Activated Partial Thromboplast Time 26.5 D-Dimer Quantitative (PE/DVT) 0.19 Blood Urea Nitrogen 12 Creatinine 0.90 Random Glucose 97 Total Protein 7.8 Albumin 3.8 Calcium Level 8.3 Magnesium Level 1.9 Alkaline Phosphatase 125 Aspartate Amino Transf (AST/SGOT) 25 Alanine Aminotransferase (ALT/SGPT) 42 Total Bilirubin 0.3 Sodium Level 138 Potassium Level 4.2 Chloride Level 104 Carbon Dioxide Level 23.2 Anion Gap 11 Estimat Glomerular Filtration Rate 90 Total Creatine Kinase 81 67 53 Troponin I LESS THAN 0.02 LESS THAN 0.02 LESS THAN 0.02 B-Type Natriuretic Peptide LESS THAN 2 Result Diagram: 02/08/174902/08/1749 Imaging Last Impressions Chest X-Ray 02/08/1748 Signed Impressions: Service Date/Time: Wednesday, February 08, 2017 01:01 - CONCLUSION: No evidence of acute cardiopulmonary disease. MD Marlo Jeffers VTE Risk Assessment Caprinmauricio VTE Risk Assessment: No/Low Risk (score <= 1) Caprini Risk Assessment Model Point Value = 1 Point Value = 2 Point Value = 3 Point Value = 5 Age 41-60 Minor surgery BMI > 25 kg/m2 Swollen legs Varicose veins or History of unexplained or recurrent spontaneous Oral contraceptives or hormone replacement Sepsis (< 1 month) Serious lung disease, including pneumonia (< 1 month) Abnormal pulmonary function Acute myocardial infarction Congestive heart failure (< 1 month) History of inflammatory bowel disease Medical patient at bed rest Age 61-74 Arthroscopic surgery Major open surgery (> 45 min) Laparoscopic surgery (> 45 min) Malignancy Confined to bed (> 72 hours) Immobilizing plaster cast Central venous access Age >= 75 History of VTE Family history of VTE Factor V Leiden Prothrombin [id number] Lupus anticoagulant Anticardiolipin antibodies Elevated serum homocysteine Heparin-induced thrombocytopenia Other congenital or acquired thrombophilia Stroke (< 1 month) Elective arthroplasty Hip, pelvis, or leg fracture Acute spinal cord injury (< 1 month) Prophylaxis Regimen Total Risk Factor Score Risk Level Prophylaxis Regimen 0-1 Low Early ambulation 2 Moderate Order ONE of the following: *Sequential Compression Device (SCD) *Heparin 5000 units SQ BID 3-4 Higher Order ONE of the following medications: *Heparin 5000 units SQ TID *Enoxaparin/Lovenox 40 mg SQ daily (WT < 150 kg, CrCl > 30 mL/min) *Enoxaparin/Lovenox 30 mg SQ daily (WT < 150 kg, CrCl > 10-29 mL/min) *Enoxaparin/Lovenox 30 mg SQ BID (WT < 150 kg, CrCl > 30 mL/min) AND/OR *Sequential Compression Device (SCD) 5 or more Highest Order ONE of the following medications: *Heparin 5000 units SQ TID (Preferred with Epidurals) *Enoxaparin/Lovenox 40 mg SQ daily (WT < 150 kg, CrCl > 30 mL/min) *Enoxaparin/Lovenox 30 mg SQ daily (WT < 150 kg, CrCl > 10-29 mL/min) *Enoxaparin/Lovenox 30 mg SQ BID (WT < 150 kg, CrCl > 30 mL/min) AND *Sequential Compression Device (SCD) Assessment and Plan Problem List: (1) Costochondritis ICD Code: M94.0 - Chondrocostal junction syndrome [Tietze] (2) Musculoskeletal chest pain ICD Code: R07.89 - Other chest pain (3) Atypical chest pain ICD Code: R07.89 - Other chest pain Assessment and Plan Mr. Morris is a 46-year-old male patient with a known medical history of HTN , COPD and CHF who presented to the ED with complaints of chest pain. Atypical chest pain Patient with increased risk factors to include body habitus, hypertension, family history of heart disease Patient's pain is reproducible on palpation with point tenderness noted along left sternal border and midsternal chest. Chest x-ray showed no acute cardiopulmonary disease. D-dimer negative. Serial cardiac enzymes reviewed, have remained negative. Patient ruled out for an acute coronary event. Serial EKGs were performed and reviewed showing sinus rhythm, HR [address] changes noted to indicate any acute ischemia. Continue aspirin and nitroglycerin. Continue cardiac external grinder tender for any arrhythmias. CBC and BMP reviewed which are essentially unremarkable. Records reviewed, patient underwent a nuclear stress test in July of this year with reports of no presence of ischemia, EF 50%. Hypertension, chronic: BP was severely elevated on presentation, 198/11, currently better controlled. Continued home Lisinopril. Will continue to monitor BP trends. DVT prevention: SCDs. This note was transcribed by austin Carvajal. I, Dr. Ehsan Ramirez personally performed the history, physical exam, and medical decision making; and confirmed the accuracy of the information in the transcribed note. Authenticated by Dr. Ehsan Ramirez on 02/08/17 at 08:50. Code Status Full code Discussed Condition With Patient Moon Carvajal Feb 08, 2017 08:47 Ehsan Ramirez MD Feb 08, 2017 08:49
[2017-02-08] MEDS ORDERED: SODIUM CHLORIDE 0.9% FLUSH 10 ML FLUSH IV FLUSH SCH (09:00)
[2017-02-08] MEDS ORDERED: ASPIRIN 325 MG TAB PO SCH (09:00)
[2017-02-08] MEDS ORDERED: LISINOPRIL 20 MG TAB PO SCH (09:30)
--- NOTE | 2017-02-08 10:08 | HHI.PR ---
Addendum to Inpatient Note Addendum Reason: Additional Documentation Additional Information Discharge patient to home Condition on discharge: Improved Regular Diet as tolerated Ad Ailyn activity Rx written:None Follow-up with primary care physician in one week Ehsan Ramirez MD Feb 08, 2017 10:08
[2017-02-08 14:00] LABS: HDL CHOLESTEROL 47.8 MG/DL (40.0-60.0)
--- NOTE | 2017-02-08 14:29 | EKG ---
Date Performed: 02/08/2017 Time Performed: 06:32:49 PTAGE: 46 years EKG: Sinus rhythm NORMAL ECG PREVIOUS TRACING : 02/08/2017 04.58 Since previous tracing, no significant change noted DOCTOR: Medhat Brown Interpretating Date/Time 02/08/2017 14:28:14
--- NOTE | 2017-02-08 14:30 | EKG ---
Date Performed: 02/08/2017 Time Performed: 03:38:11 PTAGE: 46 years EKG: Sinus rhythm NORMAL ECG PREVIOUS TRACING : 01/21/2017 19.37 Since previous tracing, no significant change noted DOCTOR: Medhat Brown Interpretating Date/Time 02/08/2017 14:29:02
--- NOTE | 2017-02-08 14:30 | EKG ---
Date Performed: 02/08/2017 Time Performed: 04:58:30 PTAGE: 46 years EKG: Sinus rhythm WITH SINUS ARRHYTHMIA NORMAL ECG PREVIOUS TRACING : 02/08/2017 03.38 Since previous tracing, no significant change noted DOCTOR: Medhat Brown Interpretating Date/Time 02/08/2017 14:28:29
--- NOTE | 2017-02-08 14:31 | EKG ---
Date Performed: 02/08/2017 Time Performed: 00:41:43 PTAGE: 46 years EKG: Sinus rhythm NORMAL ECG NO PREVIOUS TRACING DOCTOR: Medhat Brown Interpretating Date/Time 02/08/2017 14:30:26
== END 2017-02-08 12:00 | disposition home or self-care (01) ==
LOC: PHED 00:35 → PHEDA 02:37 → PH3A 03:11
PROVIDERS: ADMIT Hospitalist; ATTEND Hospitalist
DX: M94.0 Chondrocostal junction syndrome [Tietze] (principal); J44.9 Chronic obstructive pulmonary disease, unspecified; I50.9 Heart failure, unspecified; I11.0 Hypertensive heart disease with heart failure; R06.02 Shortness of breath; F32.9 Major depressive disorder, single episode, unspecified; I42.9 Cardiomyopathy, unspecified; R56.9 Unspecified convulsions; R11.0 Nausea; Z87.891 Personal history of nicotine dependence; I49.8 Other specified cardiac arrhythmias
CPT/HCPCS: 71010; 80053; 80061; 82550; 83735; 83880; 84484; 85025; 85379; 85610; 85730; 93005; 96374; 96375; 96376; 99285; G0378; J1885; J2270

== ENCOUNTER 2017-02-13 02:22 | Emergency (ER) | payer SELFPAY ==
[~2017-02-13] VITALS: Ht 182.9 cm; Wt 154.5 kg
[~2017-02-13 02:22] MED LIST changes: -AMLO10 PO; -IPRASOL INH; +LISI-515 PO; -LISI10TA3 PO; -TRAM50 PO; -ZOFR4TAB3 SL
[2017-02-13 02:55] VITALS: BP 129/83; PULSE 90; RESP 20; TEMP 97.9; O2SAT 99
[2017-02-13 03:40] LABS: BASOPHIL # 0.1 TH/MM3 (0-0.2); BASOPHIL % 0.7 % (0.0-2.0); EOSINOPHIL # 0.3 TH/MM3 (0-0.4); EOSINOPHIL % 2.7 % (0.0-4.0); HEMATOCRIT 48.5 % (39.0-51.0); HEMO FLAGS DIFF FINAL; LYMPH % 27.4 % (9.0-44.0); LYMPHOCYTE # 2.7 TH/MM3 (1.0-4.8); MEAN CELL VOLUME 94.2 FL (80.0-100.0); MEAN CORPUSCULAR HEMOGLOBIN 31.2 PG (27.0-34.0); MEAN CORPUSCULAR HGB CONC 33.1 % (32.0-36.0); MONO % 7.3 % (0.0-8.0); NEUT % 61.9 % (16.0-70.0); PLATELET COUNT 227 TH/MM3 (150-450); RED BLOOD COUNT 5.15 MIL/MM3 (4.50-5.90); RED CELL DISTRIBUTION WIDTH 12.4 % (11.6-17.2); WHITE BLOOD COUNT 9.8 TH/MM3 (4.0-11.0)
[2017-02-13 03:47] LABS: CHLORIDE 103 MEQ/L (98-107); POTASSIUM 3.9 MEQ/L (3.5-5.1); SODIUM (NA) 136 MEQ/L (136-145)
[2017-02-13 03:50] LABS: ANION GAP 9 MEQ/L (5-15); BICARBONATE 24.4 MEQ/L (21.0-32.0); BLOOD UREA NITROGEN 16 MG/DL (7-18)
[2017-02-13 03:54] LABS: GLOMERULAR FILTRATION RATE 99 ML/MIN (>89)
[2017-02-13 04:11] VITALS: BP 146/81; PULSE 78; RESP 20; O2SAT 97
--- NOTE | 2017-02-13 04:24 | RADRPT ---
EXAM DATE/TIME: 02/13/2017 03:48 [facility] COMPARISON: No previous studies available for comparison. INDICATIONS : Chest pain. MEDICAL HISTORY : Congestive heart failure. Chronic obstructive pulmonary disease. Hypertension SURGICAL HISTORY : Cholecystectomy. ENCOUNTER: Initial ACUITY: 1 day PAIN SCORE: 9/10 LOCATION: Bilateral chest FINDINGS: PA and lateral views of the chest demonstrate the lungs to be symmetrically aerated without evidence of mass, infiltrate or effusion. The cardiomediastinal contours are unremarkable. Osseous structure s are intact. CONCLUSION: No acute disease. Zenon Martinez MD on February 13, 2017 at 4:22 Board Certified Radiologist. This report was verified electronically.
[2017-02-13] MEDS ORDERED: KETOROLAC TROMETHAMINE 60 MG/2 ML (IM) VIAL IVP ONE (05:00)
[2017-02-13] MEDS ORDERED: IBUP1TAB7 PO (05:14)
--- NOTE | 2017-02-13 05:15 | PD ---
HPI Chief Complaint: Chest Pain Time Seen by Provider: 04:27 Travel History International Travel<30 days: No Contact w/Intl Traveler<30days: No Traveled to known affect area: No History of Present Illness HPI The patient is a 46-year-old male with no known history of heart disease who complains of chest pain that started around 8 PM yesterday. The patient is a frequent visitor to this emergency department for both abdominal and chest pain. His last stress test was normal and was done in July of this year. The chest pain is to the left of the sternum and pleuritic. It is constant both sharp and pressure sensation. He denies any nausea, shortness of breath or diaphoresis. He denies any syncopal or near syncopal spells. The patient does not have a history of hypertension, is a nonsmoker and does not know what his cholesterol level is. He does not have a primary care physician, he states he is getting one shortly. PFSH Past Medical History Arthritis: No Asthma: Yes Autoimmune Disease: No Blood Disorders: No Anxiety: No Depression: Yes Heart Rhythm Problems: No Cancer: No Cardiomyopathy: Yes Cardiovascular Problems: Yes High Cholesterol: No Chemotherapy: No Chest Pain: Yes Congestive Heart Failure: Yes COPD: Yes Cerebrovascular Accident: No Diabetes: No Diminished Hearing: No Endocrine: No Gastrointestinal Disorders: No Genitourinary: No Headaches: Yes Hypertension: Yes Immune Disorder: No Implanted Vascular Access Dvce: Yes Musculoskeletal: Yes Neurologic: Yes Psychiatric: Yes Reproductive: No Respiratory: Yes (COPD) Immunizations Current: Yes Migraines: Yes Radiation Therapy: No Seizures: Yes (hasn't had in 3 years since implant was taken out) Sleep Apnea: Yes Thyroid Disease: No Tetanus Vaccination: < 5 Years Influenza Vaccination: Yes PNEUMOCCOCAL Vaccine (Year): 2 Past Surgical History Abdominal Surgery: Yes (gallbladder) AICD: No Arteriovenous Shunt: No Body Medical Devices: IMPLANT FOR MIGRAINES none now Cardiac Surgery: No Cholecystectomy: Yes Ear Surgery: No Endocrine Surgery: No Eye Surgery: No Genitourinary Surgery: No Gynecologic Surgery: No Insulin Pump: No Joint Replacement: No Neurologic Surgery: Yes (BRAIN IMPLANT FOR MIGRAINES-HAS BEEN REMOVED) Oral Surgery: No Pacemaker: No Thoracic Surgery: No Other Surgery: Yes (brain, implanted device for mirgaine, removed ) Social History Alcohol Use: No Tobacco Use: No Substance Use: No Allergies-Medications (Allergen,Severity, Reaction): Coded Allergies: caffeine (Verified Allergy, Severe, RASH, 02/13/17) codeine (Verified Allergy, Severe, Itching, 02/13/17) propoxyphene (Verified Allergy, Severe, ABD. CRAMS, 02/13/17) Reported Meds & Prescriptions Reported Meds & Active Scripts Active Reported Lisinopril 20 Mg Tab 20 Mg PO DAILY Aspirin 81 (Aspirin) 81 Mg Tabdr 81 Mg PO DAILY Review of Systems Except as stated in HPI: all other systems reviewed are Neg Physical Exam Narrative GENERAL: The patient is anxious, alert, oriented 3 in no apparent distress other than his chest discomfort. His vital signs are normal. SKIN: Focused skin assessment warm/dry. HEAD: Atraumatic. Normocephalic. EYES: Pupils equal and round. No scleral icterus. No injection or drainage. ENT: No nasal bleeding or discharge. Mucous membranes pink and moist. NECK: Trachea midline. No JVD. CARDIOVASCULAR: Regular rate and rhythm. No murmur appreciated. RESPIRATORY: No accessory muscle use. Clear to auscultation. Breath sounds equal bilaterally. I cannot reproduce the patient's pain by pressing on the chest wall. GASTROINTESTINAL: Abdomen soft, non-tender, nondistended. Hepatic and splenic margins not palpable. MUSCULOSKELETAL: No obvious deformities. No clubbing. No cyanosis. No edema. NEUROLOGICAL: Awake and alert. No obvious cranial nerve deficits. Motor grossly within normal limits. Normal speech. PSYCHIATRIC: Appropriate mood and affect; insight and judgment normal. Data Data Last Documented VS Vital Signs Date Time Temp Pulse Resp B/P (MAP) Pulse Ox O2 Delivery O2 Flow Rate FiO2 02/13/17 04:11 78 20 146/81 (102) 97 Nasal Cannula 2.00 02/13/17 02:55 97.9 Orders Orders Complete Blood Count With Diff (02/13/17 03:27) Basic Metabolic Panel (Bmp) (02/13/17 03:27) Troponin I (02/13/17 03:27) Chest, Pa & Lat (02/13/17 ) Ketorolac Inj (Toradol Inj) (02/13/17 05:00) Labs Laboratory Tests Test 02/13/17 03:00 White Blood Count 9.8 TH/MM3 Red Blood Count 5.15 MIL/MM3 Hemoglobin 16.1 GM/DL Hematocrit 48.5 % Mean Corpuscular Volume 94.2 FL Mean Corpuscular Hemoglobin 31.2 PG Mean Corpuscular Hemoglobin Concent 33.1 % Red Cell Distribution Width 12.4 % Platelet Count 227 TH/MM3 Mean Platelet Volume 10.6 FL Neutrophils (%) (Auto) 61.9 % Lymphocytes (%) (Auto) 27.4 % Monocytes (%) (Auto) 7.3 % Eosinophils (%) (Auto) 2.7 % Basophils (%) (Auto) 0.7 % Neutrophils # (Auto) 6.0 TH/MM3 Lymphocytes # (Auto) 2.7 TH/MM3 Monocytes # (Auto) 0.7 TH/MM3 Eosinophils # (Auto) 0.3 TH/MM3 Basophils # (Auto) 0.1 TH/MM3 CBC Comment DIFF FINAL Differential Comment Blood Urea Nitrogen 16 MG/DL Creatinine 0.83 MG/DL Random Glucose 101 MG/DL Calcium Level 9.1 MG/DL Sodium Level 136 MEQ/L Potassium Level 3.9 MEQ/L Chloride Level 103 MEQ/L Carbon Dioxide Level 24.4 MEQ/L Anion Gap 9 MEQ/L Estimat Glomerular Filtration Rate 99 ML/MIN Troponin I LESS THAN 0.02 NG/ML MDM Medical Decision Making Medical Screen Exam Complete: Yes Emergency Medical Condition: Yes Medical Record Reviewed: Yes Interpretation(s) The CBC is normal. The troponin I is normal. The basic metabolic profile is normal. The EKG shows sinus rhythm with rate of 92 and is completely normal. The chest x-ray shows no acute cardiopulmonary disease. Differential Diagnosis Anxiety, chest wall pain, pleuritic pain, esophageal pain, gastrointestinal pain , atypical chest pain Narrative Course The patient appears to have pleuritic chest pain. He has a recent stress test and his troponin I are normal as well as his EKG is normal. Impression: Atypical chest pain Plan: The patient will follow-up with his primary care physician. Diagnosis Primary Impression: Atypical chest pain Med/Other Pt SpecificInfo: Prescription(s) given Scripts Ibuprofen (Ibuprofen) 800 Mg Tab 800 MG PO TID, #33 TAB 0 Refills Prov: Landon Banegas MD 02/13/17 Disposition: 01 DISCHARGE HOME Condition: Stable Landon Banegas MD Feb 13, 2017 05:15
[2017-02-13 05:28] VITALS: RESP 20
[2017-02-13 05:29] VITALS: BP 131/89
--- NOTE | 2017-02-13 14:35 | EKG ---
Date Performed: 02/13/2017 Time Performed: 02:30:32 PTAGE: 46 years EKG: Sinus rhythm NORMAL ECG INTERPRETATION BASED ON A DEFAULT AGE OF 40 YEARS PREVIOUS TRACING : 02/08/2017 06.32 Compared to prior tracing no significant change DOCTOR: Brody Roy Interpretating Date/Time 02/13/2017 14:33:53
== END 2017-02-13 05:40 | disposition home or self-care (01) ==
LOC: PHED 02:22
DX: R07.89 Other chest pain (principal)
CPT/HCPCS: 71020; 80048; 84484; 85025; 93005; 96374; 99284; J1885

== ENCOUNTER 2017-02-26 20:00 | Emergency (ER) | payer SELFPAY ==
[~2017-02-26] VITALS: Ht 182.9 cm; Wt 153.0 kg
[~2017-02-26 20:00] MED LIST changes: +IBUP1TAB7 PO
[2017-02-26 20:02] VITALS: BP 141/98; PULSE 109; RESP 22; TEMP 98.1; O2SAT 98
[2017-02-26 21:06] VITALS: BP 155/95; PULSE 84; RESP 18; O2SAT 97
[2017-02-26 21:36] LABS: AUTOMATED NEUTROPHIL # 8.8 TH/MM3 (1.8-7.7); BASOPHIL % 0.3 % (0.0-2.0); EOSINOPHIL # 0.3 TH/MM3 (0-0.4); EOSINOPHIL % 2.3 % (0.0-4.0); HEMATOCRIT 46.9 % (39.0-51.0); HEMO FLAGS DIFF FINAL; LYMPH % 12.9 % (9.0-44.0); LYMPHOCYTE # 1.4 TH/MM3 (1.0-4.8); MEAN CELL VOLUME 93.3 FL (80.0-100.0); MEAN CORPUSCULAR HEMOGLOBIN 31.7 PG (27.0-34.0); MONO % 4.8 % (0.0-8.0); NEUT % 79.7 % (16.0-70.0); PLATELET COUNT 218 TH/MM3 (150-450); RED BLOOD COUNT 5.03 MIL/MM3 (4.50-5.90); RED CELL DISTRIBUTION WIDTH 12.6 % (11.6-17.2)
[2017-02-26 21:44] LABS: CHLORIDE 105 MEQ/L (98-107); SODIUM (NA) 136 MEQ/L (136-145)
[2017-02-26 21:47] LABS: ANION GAP 8 MEQ/L (5-15); BICARBONATE 22.9 MEQ/L (21.0-32.0); BLOOD UREA NITROGEN 14 MG/DL (7-18)
[2017-02-26 21:48] LABS: BLOOD, URINE NEG (NEG); GLUCOSE,URINE NEG (NEG); KETONE, URINE TRACE mg/dL (NEG); NITRITE,URINE NEG (NEG)
[2017-02-26 21:50] LABS: ALT (GPT) 70 U/L (12-78); AST (GOT) 21 U/L (15-37); GLOMERULAR FILTRATION RATE 118 ML/MIN (>89)
[2017-02-26 21:52] LABS: TOTAL BILIRUBIN ADULT 0.5 MG/DL (0.2-1.0)
[2017-02-26 21:53] LABS: ALKALINE PHOSPHATASE 136 U/L (45-117)
[2017-02-26 21:56] LABS: MUCUS URINE MOD /lpf (OCC); URINE COLOR YELLOW (YELLW/STRAW)
[2017-02-26 21:57] LABS: COMMENT (UR) CULT NOT INDICATED; CULTURE IF INDICATED CULT NOT INDICATED; SQUAMOUS EPITHELIAL CELL URINE 0-5 /hpf (0-5); WBC, URINE 0-2 /hpf (0-5)
[2017-02-26 22:00] VITALS: BP 128/96; PULSE 82; RESP 18; O2SAT 94
[2017-02-26 22:30] VITALS: BP_SYST 119; BP_SYST 138; BP_SYST 152; BP_SYST 165; BP_DIAS 71; BP_DIAS 79; BP_DIAS 81; BP_DIAS 91; PULSE 84; RESP 18; O2SAT 94
[2017-02-26 22:36] VITALS: O2SAT 95
[2017-02-26] MEDS ORDERED: IOHEXOL 350 MG/ML 10 ML VIAL (for RAD DIAG) IVCONTRAST ONE (22:45)
--- NOTE | 2017-02-26 23:06 | RADRPT ---
EXAM DATE/TIME: 02/26/2017 22:45 [facility] COMPARISON: CT ABDOMEN & PELVIS W CONTRAST, August 19, 2016, 22:46. INDICATIONS : Nausea vomiting and diarrhea since yesterday. Black stools. IV CONTRAST: 96 cc Omnipaque 350 (iohexol) IV ORAL CONTRAST: No oral contrast ingested. RADIATION DOSE: 22.37 CTDIvol (mGy) ; Patient body habitus MEDICAL HISTORY : Chronic obstructive pulmonary disease. Congestive heart failure. Hypertension. SURGICAL HISTORY : Cholecystectomy. ENCOUNTER: Initial ACUITY: 2 days PAIN SCALE: 8/10 LOCATION: medial abdomen TECHNIQUE: Volumetric scanning of the abdomen and pelvis was performed. Using automated exposure control and ad justment of the mA and/or kV according to patient size, radiation dose was kept as low as reasonably achievable to obtain optimal diagnostic quality images. DICOM format image data is available electro nically for review and comparison. FINDINGS: No pleural or pericardial effusions. Cholecystectomy clips are noted. Liver, spleen, pancreas, adrena l glands, bilateral kidneys are normal in appearance. Urinary bladder, prostate unremarkable. No evid ence of bowel obstruction, free fluid, or free air. The stomach is normal. The appendix is normal. Th ere is no adenopathy or aneurysm. There is a non-calcified nodule right lower lobe on image 9, unchan ged. Results of a tiny nodule in the right lower lobe on image 7 unchanged in a left lower lobe nonca lcified nodule on image 2 which is unchanged. There is mild hepatomegaly. CONCLUSION: No acute findings. Stable appearance of the abdomen and pelvis appears stable lung nodules. Hari Heath MD on February 26, 2017 at 23:03 Board Certified Radiologist. This report was verified electronically.
--- NOTE | 2017-02-26 23:10 | RADRPT ---
EXAM DATE/TIME: 02/26/2017 22:57 [facility] COMPARISON: CHEST SINGLE AP, February 08, 2017, 1:01. INDICATIONS : Cough. MEDICAL HISTORY : Hypertension. Congestive heart failure. Chronic obstructive pulmonary disease SURGICAL HISTORY : Cholecystectomy. ENCOUNTER: Initial ACUITY: 2 days PAIN SCORE: 5/10 LOCATION: Bilateral chest FINDINGS: A single view of the chest demonstrates the lungs to be symmetrically aerated without evidence of mas s, infiltrate or effusion. The cardiomediastinal contours are unremarkable. Osseous structures are intact. CONCLUSION: No acute disease. Hari Heath MD on February 26, 2017 at 23:08 Board Certified Radiologist. This report was verified electronically.
--- NOTE | 2017-02-26 23:18 | PD ---
HPI Chief Complaint: Abdominal Pain Time Seen by Provider: 22:11 Travel History International Travel<30 days: No Contact w/Intl Traveler<30days: No Traveled to known affect area: No History of Present Illness HPI 46-year-old male presents to the emergency department for complaint of one day of not feeling well. Patient felt lightheaded and near syncopal. Patient's had cough and congestion and posttussive emesis. Patient's had dark stool. Patient's had abdominal pain. Patient has had chills without fever. Patient states she had the flu vaccine but he is not sure when he had it. Patient has history of COPD and CHF. Patient does not feel like he has CHF but is concerned about maybe having some bronchitis. Patient's had no hemoptysis. Patient's had no bilious emesis coffee ground emesis hematemesis or hematochezia. Patient denies any prior history of GI bleed. Patient's had no upper endoscopy or colonoscopy in the past. Patient has not had colitis or diverticulitis in the past. Patient states he thinks most of his abdominal pain is related to forceful coughing. Patient states that he's had no flank pain or dysuria frequency or urgency. Patient has not noticed any new lower extremity pain or swelling. No recent long distance travel protracted bedrest her surgical procedure. No history of clotting disorder. Patient does not take blood thinner. PFSH Past Medical History Narrative Medical Depression hypertension COPD CHF migraine seizure cholecystectomy; no tobacco use no alcohol use no substance use; nursing notes reviewed Arthritis: No Asthma: Yes Autoimmune Disease: No Blood Disorders: No Anxiety: No Depression: Yes Heart Rhythm Problems: No Cancer: No Cardiomyopathy: Yes Cardiovascular Problems: Yes (CHF, HTN) High Cholesterol: No Chemotherapy: No Chest Pain: Yes Congestive Heart Failure: Yes COPD: Yes Cerebrovascular Accident: No Diabetes: No Diminished Hearing: No Endocrine: No Gastrointestinal Disorders: No Genitourinary: No Headaches: Yes Hypertension: Yes Immune Disorder: No Implanted Vascular Access Dvce: Yes Musculoskeletal: Yes Neurologic: Yes Psychiatric: Yes Reproductive: No Respiratory: Yes (COPD) Immunizations Current: Yes Migraines: Yes Radiation Therapy: No Seizures: Yes (hasn't had in 3 years since implant was taken out) Sleep Apnea: Yes Thyroid Disease: No PNEUMOCCOCAL Vaccine (Year): 2 Past Surgical History Abdominal Surgery: Yes (gallbladder) AICD: No Arteriovenous Shunt: No Body Medical Devices: IMPLANT FOR MIGRAINES none now Cardiac Surgery: No Cholecystectomy: Yes Ear Surgery: No Endocrine Surgery: No Eye Surgery: No Genitourinary Surgery: No Gynecologic Surgery: No Insulin Pump: No Joint Replacement: No Neurologic Surgery: Yes (BRAIN IMPLANT FOR MIGRAINES-HAS BEEN REMOVED) Oral Surgery: No Pacemaker: No Thoracic Surgery: No Other Surgery: Yes (brain, implanted device for mirgaine, removed ) Social History Alcohol Use: No Tobacco Use: No Substance Use: No Allergies-Medications (Allergen,Severity, Reaction): Coded Allergies: caffeine (Verified Allergy, Severe, RASH, 02/26/17) codeine (Verified Allergy, Severe, Itching, 02/26/17) propoxyphene (Verified Allergy, Severe, ABD. CRAMS, 02/26/17) Reported Meds & Prescriptions Reported Meds & Active Scripts Active Ibuprofen 800 Mg Tab 800 Mg PO TID Reported Lisinopril 20 Mg Tab 20 Mg PO DAILY Aspirin 81 (Aspirin) 81 Mg Tabdr 81 Mg PO DAILY Review of Systems Except as stated in HPI: all other systems reviewed are Neg General / Constitutional: Positive: Chills, No: Fever HENT: Positive: Congestion Cardiovascular: No: Chest Pain or Discomfort Respiratory: Positive: Cough, Wheezing Gastrointestinal: Positive: Nausea, Vomiting, Diarrhea, Abdominal Pain Genitourinary: No: Dysuria, Flank Pain Musculoskeletal: No: Myalgias, Arthralgias Skin: No Rash Neurologic: No: Weakness Psychiatric: No: Anxiety Hematologic/Lymphatic: No: Lymph Node Enlargement Physical Exam Narrative GENERAL: Well-developed well-nourished obese male in no acute distress no respiratory distress SKIN: Warm and dry. HEAD: Atraumatic. Normocephalic. EYES: Pupils equal and round. No scleral icterus. No injection or drainage. ENT: No nasal bleeding or discharge. Mucous membranes pink and moist. NECK: Trachea midline. No JVD. CARDIOVASCULAR: Regular rate and rhythm. RESPIRATORY: No accessory muscle use. Clear to auscultation. Breath sounds equal bilaterally. GASTROINTESTINAL: Abdomen soft, non-tender, nondistended. Hepatic and splenic margins not palpable. Rectal exam: Normal sphincter tone dark mucus no gross blood heme negative MUSCULOSKELETAL: Extremities without clubbing, cyanosis, or edema. No obvious deformities. NEUROLOGICAL: Awake and alert. No obvious cranial nerve deficits. Motor grossly within normal limits. Five out of 5 muscle strength in the arms and legs. Normal speech. PSYCHIATRIC: Appropriate mood and affect; insight and judgment normal. Data Data Last Documented VS Vital Signs Date Time Temp Pulse Resp B/P (MAP) Pulse Ox O2 Delivery O2 Flow Rate FiO2 02/26/17 22:36 95 02/26/17 22:30 84 18 Room Air 02/26/17 20:02 98.1 Orders Orders Complete Blood Count With Diff (02/26/17 21:10) Comprehensive Metabolic Panel (02/26/17 21:10) Urinalysis - C+S If Indicated (02/26/17 21:10) Iv Access Insert/Monitor (02/26/17 21:10) Oximetry (02/26/17 21:10) Lipase (02/26/17 21:10) Influenzae A/B Antigen (02/26/17 21:10) Chest, Single Ap (02/26/17 ) B-Type Natriuretic Peptide (02/26/17 22:28) Electrocardiogram (02/26/17 ) Ct Abd/Pel W Iv Contrast(Rout) (02/26/17 ) Influenzae A/B Antigen (02/26/17 22:28) Orthostatic Vital Signs (02/26/17 22:28) Troponin I (02/26/17 21:13) Iohexol 350 Inj (Omnipaque 350 Inj) (02/26/17 22:45) Ed Discharge Order (02/26/17 23:24) Labs Laboratory Tests Test 02/26/17 21:13 02/26/17 21:33 White Blood Count 11.0 TH/MM3 Red Blood Count 5.03 MIL/MM3 Hemoglobin 15.9 GM/DL Hematocrit 46.9 % Mean Corpuscular Volume 93.3 FL Mean Corpuscular Hemoglobin 31.7 PG Mean Corpuscular Hemoglobin Concent 34.0 % Red Cell Distribution Width 12.6 % Platelet Count 218 TH/MM3 Mean Platelet Volume 10.5 FL Neutrophils (%) (Auto) 79.7 % Lymphocytes (%) (Auto) 12.9 % Monocytes (%) (Auto) 4.8 % Eosinophils (%) (Auto) 2.3 % Basophils (%) (Auto) 0.3 % Neutrophils # (Auto) 8.8 TH/MM3 Lymphocytes # (Auto) 1.4 TH/MM3 Monocytes # (Auto) 0.5 TH/MM3 Eosinophils # (Auto) 0.3 TH/MM3 Basophils # (Auto) 0.0 TH/MM3 CBC Comment DIFF FINAL Differential Comment Blood Urea Nitrogen 14 MG/DL Creatinine 0.71 MG/DL Random Glucose 130 MG/DL Total Protein 8.1 GM/DL Albumin 4.1 GM/DL Calcium Level 9.2 MG/DL Alkaline Phosphatase 136 U/L Aspartate Amino Transf (AST/SGOT) 21 U/L Alanine Aminotransferase (ALT/SGPT) 70 U/L Total Bilirubin 0.5 MG/DL Sodium Level 136 MEQ/L Potassium Level 4.0 MEQ/L Chloride Level 105 MEQ/L Carbon Dioxide Level 22.9 MEQ/L Anion Gap 8 MEQ/L Estimat Glomerular Filtration Rate 118 ML/MIN Troponin I LESS THAN 0.02 NG/ML B-Type Natriuretic Peptide 17 PG/ML Lipase 230 U/L Urine Color YELLOW Urine Turbidity CLEAR Urine pH 6.0 Urine Specific [place] 1.030 Urine Protein NEG mg/dL Urine Glucose (UA) NEG mg/dL Urine Ketones TRACE mg/dL Urine Occult Blood NEG Urine Nitrite NEG Urine Bilirubin NEG Urine Leukocyte Esterase NEG Urine WBC 0-2 /hpf Urine Squamous Epithelial Cells 0-5 /hpf Urine Mucus MOD /lpf Microscopic Urinalysis Comment CULT NOT INDICATED MDM Medical Decision Making Medical Screen Exam Complete: Yes Emergency Medical Condition: Yes Medical Record Reviewed: Yes Interpretation(s) EKG: Normal sinus rhythm rate [address] elevation or injury pattern or ectopy noted Last Impressions Chest X-Ray 02/26/17 0000 Signed Impressions: Service Date/Time: Sunday, February 26, 2017 22:57 - CONCLUSION: No acute disease. Hari Heath MD Abdomen/Pelvis CT 02/26/17 0000 Signed Impressions: Service Date/Time: Sunday, February 26, 2017 22:45 - CONCLUSION: No acute findings. Stable appearance of the abdomen and pelvis appears stable lung nodules. Hari Heath MD CBC & BMP Diagram 02/26/17 21:13 Total Protein 8.1, Albumin 4.1, Calcium Level 9.2, Alkaline Phosphatase 136 H, Aspartate Amino Transf (AST/SGOT) 21, Alanine Aminotransferase (ALT/SGPT) 70, Total Bilirubin 0.5 Vital Signs Date Time Temp Pulse Resp B/P (MAP) Pulse Ox O2 Delivery O2 Flow Rate FiO2 02/26/17 22:36 95 02/26/17 22:30 84 18 119/71 (87) 94 Room Air 02/26/17 22:00 82 18 128/96 (107) 94 Room Air 02/26/17 21:06 84 18 155/95 (115) 97 Room Air 02/26/17 20:20 20 02/26/17 20:02 98.1 109 22 141/98 (112) 98 Differential Diagnosis Generalized weakness, viral syndrome, pneumonia, exacerbation COPD, CHF, ACS, bowel obstruction, pancreatitis, diverticulitis, UTI Narrative Course IV access obtained specimens collected and sent for resulting CBC with automated differential and complete metabolic panel values are grossly within normal range Urinalysis reveals no acute process EKG, troponin I, BNP, and influenza antigen added to current orders Chest x-ray no lobar infiltrate Lab values are otherwise within normal range EKG shows no acute injury pattern or ectopy CT abdomen and pelvis ordered and found to be in normal range without acute intra-abdominal or intrapelvic findings to explain patient's complaint of discomfort. [facility] Point of Care Internal Pos. & Neg. Controls: Passed Fecal Specimen Occult Blood: Negative Diagnosis Primary Impression: Gastroenteritis Additional Impression: Bronchitis Referrals: Primary Care Physician 3 days Patient Instructions: General Instructions Additional Instructions: Continue current medications as presently prescribed May use [id number] Robitussin for cough Complete course of steroid as prescribed Do not use imit-dbb-[id number] nonsteroidal anti-inflammatory medications such as ibuprofen/Advil/Motrin or Naprosyn/proximal/Aleve Days acetaminophen/Tylenol as needed for fever 100.4F or greater neck sign return to the emergency department for any concerns or change in condition [facility] follow-up with your primary care provider on Wednesday call office to schedule appointment Increase fluid hydration; recommend clear liquid diet for next 12-24 hours advance as tolerated bland/Quentin diet then regular diet avoiding fried and fatty foods or high salt content foods Med/Other Pt SpecificInfo: Prescription(s) given Scripts Methylprednisolone Dosepak (Medrol Dosepak) 4 Mg Dspk 4 MG PO DIRECTED, #1 DSPK 0 Refills Per Pharmacist direction Prov: Melissa Rubin MD 02/26/17 Disposition: 01 DISCHARGE HOME Condition: Stable Melsisa Rubin MD Feb 26, 2017 23:18
[2017-02-26] MEDS ORDERED: MEDR4PAK PO (23:30)
[2017-02-26 23:40] VITALS: BP 153/90
--- NOTE | 2017-02-27 13:53 | EKG ---
Date Performed: 02/26/2017 Time Performed: 23:07:00 PTAGE: 46 years EKG: Sinus rhythm NORMAL ECG Since PREVIOUS TRACING , no significant change noted PREVIOUS TRACIN02/13/2017 02.30 DOCTOR: Rolando Carlos Interpretating Date/Time 02/27/2017 13:53:16
== END 2017-02-26 23:58 | disposition home or self-care (01) ==
LOC: PHED 20:00
DX: K52.9 Noninfective gastroenteritis and colitis, unspecified (principal); J40 Bronchitis, not specified as acute or chronic; J44.9 Chronic obstructive pulmonary disease, unspecified; I50.9 Heart failure, unspecified; I11.0 Hypertensive heart disease with heart failure; I42.9 Cardiomyopathy, unspecified; Z79.82 Long term (current) use of aspirin
CPT/HCPCS: 71010; 74177; 80053; 81001; 83690; 83880; 84484; 85025; 87804; 93005; 99285; Q9967

== ENCOUNTER 2017-03-23 14:05 | Emergency (ER) | payer SELFPAY ==
[~2017-03-23] VITALS: Ht 182.9 cm; Wt 158.0 kg
[~2017-03-23 14:05] MED LIST changes: +MEDR4PAK PO
[2017-03-23 14:09] VITALS: BP 154/101; PULSE 88; RESP 16; TEMP 97.8; O2SAT 96
[2017-03-23] MEDS ORDERED: ALBU.5I NEB (14:16)
[2017-03-23] MEDS ORDERED: BENZ100 PO (14:26)
--- NOTE | 2017-03-23 14:26 | PD ---
HPI Chief Complaint: Cold / Flu Symptoms Time Seen by Provider: 14:12 Travel History International Travel<30 days: No Contact w/Intl Traveler<30days: No Traveled to known affect area: No History of Present Illness HPI 46-year-old male here with nasal congestion, cough, sore throat 2 days. Symptoms severity is mild. No aggravating or alleviating factors. No sick contacts. No foreign travel. PFSH Past Medical History Arthritis: No Asthma: Yes Autoimmune Disease: No Blood Disorders: No Anxiety: No Depression: Yes Heart Rhythm Problems: No Cancer: No Cardiomyopathy: Yes Cardiovascular Problems: Yes (CHF, HTN) High Cholesterol: No Chemotherapy: No Chest Pain: Yes Congestive Heart Failure: Yes COPD: Yes Cerebrovascular Accident: No Diabetes: No Diminished Hearing: No Endocrine: No Gastrointestinal Disorders: No Genitourinary: No Headaches: Yes Hypertension: Yes Immune Disorder: No Implanted Vascular Access Dvce: Yes Musculoskeletal: Yes Neurologic: Yes Psychiatric: Yes Reproductive: No Respiratory: Yes (COPD) Immunizations Current: Yes Migraines: Yes Radiation Therapy: No Seizures: Yes (hasn't had in 3 years since implant was taken out) Sleep Apnea: Yes Thyroid Disease: No PNEUMOCCOCAL Vaccine (Year): 2 Past Surgical History Abdominal Surgery: Yes (gallbladder) AICD: No Arteriovenous Shunt: No Body Medical Devices: IMPLANT FOR MIGRAINES none now Cardiac Surgery: No Cholecystectomy: Yes Ear Surgery: No Endocrine Surgery: No Eye Surgery: No Genitourinary Surgery: No Gynecologic Surgery: No Insulin Pump: No Joint Replacement: No Neurologic Surgery: Yes (BRAIN IMPLANT FOR MIGRAINES-HAS BEEN REMOVED) Oral Surgery: No Pacemaker: No Thoracic Surgery: No Other Surgery: Yes (brain, implanted device for mirgaine, removed ) Social History Alcohol Use: No Tobacco Use: No Substance Use: No Allergies-Medications (Allergen,Severity, Reaction): Coded Allergies: caffeine (Verified Allergy, Severe, RASH, 03/23/17) codeine (Verified Allergy, Severe, Itching, 03/23/17) propoxyphene (Verified Allergy, Severe, ABD. CRAMS, 03/23/17) Reported Meds & Prescriptions Reported Meds & Active Scripts Active Tessalon Perles (Benzonatate) 100 Mg Cap 200 Mg PO TID PRN 5 Days Ibuprofen 800 Mg Tab 800 Mg PO TID Reported Albuterol Neb (Albuterol Sulfate) 2.5 Mg/0.5 Ml Neb 2.5 Mg NEB Q4HR NEB PRN Note: The Albuterol Sulfate Inhalation Solution is concentrated and must be diluted. Read complete instructions carefully before using. Lisinopril 20 Mg Tab 20 Mg PO DAILY Aspirin 81 (Aspirin) 81 Mg Tabdr 81 Mg PO DAILY Review of Systems Except as stated in HPI: all other systems reviewed are Neg General / Constitutional: No: Fever Eyes: No: Visual changes HENT: Positive: Sore Throat, Congestion Cardiovascular: No: Chest Pain or Discomfort Respiratory: Positive: Cough Gastrointestinal: No: Abdominal Pain Physical Exam Narrative GENERAL: Alert and well-appearing male SKIN: Warm and dry. HEAD: Normocephalic. EYES: No injection or drainage. THROAT: Pharyngeal erythema. No tonsillar hypertrophy or exudate. Uvula is midline. Airway is patent. NECK: Supple, trachea midline. No JVD or lymphadenopathy. No nuchal rigidity CARDIOVASCULAR: Regular rate and rhythm without murmurs, gallops, or rubs. RESPIRATORY: Breath sounds equal bilaterally. No accessory muscle use. GASTROINTESTINAL: Abdomen soft, non-tender, nondistended. MUSCULOSKELETAL: No cyanosis, or edema. BACK: Nontender without obvious deformity. No CVA tenderness. Data Data Last Documented VS Vital Signs Date Time Temp Pulse Resp B/P (MAP) Pulse Ox O2 Delivery O2 Flow Rate FiO2 03/23/17 14:18 18 03/23/17 14:09 97.8 88 154/101 (118) 96 MDM Medical Decision Making Medical Screen Exam Complete: Yes Emergency Medical Condition: Yes Differential Diagnosis URI, influenza, bronchitis, pna Narrative Course 46-year-old male here with mild URI-like symptoms. His vital signs are stable. His lung sounds are clear. Symptomatically treatment of URI discussed with patient. Diagnosis Primary Impression: URI (upper respiratory infection) Qualified Codes: J06.9 - Acute upper respiratory infection, unspecified; B97.89 - Other viral agents as the cause of diseases classified elsewhere Referrals: Primary Care Physician Additional Instructions: ibuprofen & Tylenol for fever & pain Scripts Benzonatate (Tessalon Perles) 100 Mg Cap 200 MG PO TID Y for COUGH for 5 Days, CAP 0 Refills Prov: Phylicia Franco 03/23/17 Disposition: 01 DISCHARGE HOME Condition: Stable Phylicia Franco Mar 23, 2017 14:26
== END 2017-03-23 14:35 | disposition home or self-care (01) ==
LOC: PHEFT 14:05
DX: J06.9 Acute upper respiratory infection, unspecified (principal); J44.9 Chronic obstructive pulmonary disease, unspecified
CPT/HCPCS: 99283

== ENCOUNTER 2017-04-04 16:15 | Emergency (ER) | payer SELFPAY ==
[~2017-04-04] VITALS: Ht 182.9 cm; Wt 160.0 kg
[2017-04-04] VITALS (7 sets, daily range): BP systolic 104–178; BP diastolic 52–85; PULSE 70–95; RESP 16–18; TEMP 97.5; O2SAT 98–100
[~2017-04-04 16:15] MED LIST changes: +ALBU.5I NEB; +BENZ100 PO; -MEDR4PAK PO
--- NOTE | 2017-04-04 16:27 | PD ---
HPI Chief Complaint: Chest Pain Time Seen by Provider: 16:23 Travel History International Travel<30 days: No Contact w/Intl Traveler<30days: No Traveled to known affect area: No History of Present Illness HPI 46-year-old male with reported history of hypertension, COPD, CHF, here for evaluation of chest pain. The patient reports that he has been having chest tightness and he woke up this morning. About an hour before presenting to the emergency department states that the pain significantly increased and he has sharp pain over his substernal and left chest. He reports that his symptoms are 8 out of 10 in intensity, nonradiating, worse with exertion. He denies any history of cardiac stents. No history of DVT or PE. Reports flulike symptoms about 2 weeks ago. No abdominal pain. No paresthesias or motor deficits. Chart review shows that the patient has been to the hospital several times with complaints of chest pain. On 08/01/16 he had a myocardial perfusion scan that showed no significant reversible perfusion defects to suggest ischemia. PFSH Past Medical History Arthritis: No Asthma: Yes Autoimmune Disease: No Blood Disorders: No Anxiety: No Depression: Yes Heart Rhythm Problems: No Cancer: No Cardiomyopathy: Yes Cardiovascular Problems: Yes (CHF, HTN) High Cholesterol: No Chemotherapy: No Chest Pain: Yes Congestive Heart Failure: Yes COPD: Yes Cerebrovascular Accident: No Diabetes: No Diminished Hearing: No Endocrine: No Gastrointestinal Disorders: No Genitourinary: No Headaches: Yes Hypertension: Yes Immune Disorder: No Implanted Vascular Access Dvce: Yes Musculoskeletal: Yes Neurologic: Yes Psychiatric: Yes Reproductive: No Respiratory: Yes (COPD) Immunizations Current: Yes Migraines: Yes Radiation Therapy: No Seizures: Yes (hasn't had in 3 years since implant was taken out) Sleep Apnea: Yes Thyroid Disease: No PNEUMOCCOCAL Vaccine (Year): 2 Past Surgical History Abdominal Surgery: Yes (gallbladder) AICD: No Arteriovenous Shunt: No Body Medical Devices: IMPLANT FOR MIGRAINES none now Cardiac Surgery: No Cholecystectomy: Yes Ear Surgery: No Endocrine Surgery: No Eye Surgery: No Genitourinary Surgery: No Gynecologic Surgery: No Insulin Pump: No Joint Replacement: No Neurologic Surgery: Yes (BRAIN IMPLANT FOR MIGRAINES-HAS BEEN REMOVED) Oral Surgery: No Pacemaker: No Thoracic Surgery: No Other Surgery: Yes (brain, implanted device for mirgaine, removed ) Social History Alcohol Use: No Tobacco Use: No Substance Use: No Allergies-Medications (Allergen,Severity, Reaction): Coded Allergies: caffeine (Verified Allergy, Severe, RASH, 04/04/17) codeine (Verified Allergy, Severe, Itching, 04/04/17) propoxyphene (Verified Allergy, Severe, ABD. CRAMS, 04/04/17) Reported Meds & Prescriptions Reported Meds & Active Scripts Active Reported Meloxicam 15 Mg Tab 15 Mg PO DAILY Albuterol Neb (Albuterol Sulfate) 2.5 Mg/0.5 Ml Neb 2.5 Mg NEB Q4HR NEB PRN Note: The Albuterol Sulfate Inhalation Solution is concentrated and must be diluted. Read complete instructions carefully before using. Lisinopril 20 Mg Tab 20 Mg PO DAILY Aspirin 81 (Aspirin) 81 Mg Tabdr 81 Mg PO DAILY Review of Systems Except as stated in HPI: all other systems reviewed are Neg Physical Exam Narrative GENERAL: Well-developed, well-nourished, awake, alert, appears anxious. SKIN: Focused skin assessment warm/dry. HEAD: Atraumatic. Normocephalic. EYES: Pupils equal and round. No scleral icterus. No injection or drainage. ENT: Mucous membranes pink and moist. NECK: Trachea midline. No JVD. CARDIOVASCULAR: Regular rate and rhythm. No murmur appreciated. Distal pulses brisk and equal bilaterally. RESPIRATORY: No accessory muscle use. Clear to auscultation. Breath sounds equal bilaterally. GASTROINTESTINAL: Abdomen soft, non-tender, nondistended. MUSCULOSKELETAL: No obvious deformities. No clubbing. No cyanosis. No edema. NEUROLOGICAL: Awake and alert. No obvious cranial nerve deficits. Motor grossly within normal limits. Normal speech. PSYCHIATRIC: Appears anxious. Data Data Last Documented VS Vital Signs Date Time Temp Pulse Resp B/P (MAP) Pulse Ox O2 Delivery O2 Flow Rate FiO2 04/04/17 19:38 78 16 178/78 (111) 100 Room Air 04/04/17 16:24 97.5 Orders Orders Electrocardiogram (04/04/17 16:23) Ckmb (Isoenzyme) Profile (04/04/17 16:23) Complete Blood Count With Diff (04/04/17 16:23) Comprehensive Metabolic Panel (04/04/17 16:23) D-Dimer (04/04/17 16:23) Prothrombin Time / Inr (Pt) (04/04/17 16:23) Act Partial Throm Time (Ptt) (04/04/17 16:23) Troponin I (04/04/17 16:23) Chest, Single Ap (04/04/17 16:23) Ecg Monitoring (04/04/17 16:23) Iv Access Insert/Monitor (04/04/17 16:23) Oximetry (04/04/17 16:23) Aspirin Chew (Aspirin Chew) (04/04/17 16:30) Sodium Chloride 0.9% Flush (Ns Flush) (04/04/17 16:30) Nitroglycerin Sl (Nitrostat Sl) (04/04/17 16:30) Ketorolac Inj (Toradol Inj) (04/04/17 16:45) Drug Screen, Random Urine (04/04/17 17:15) Morphine Inj (Morphine Inj) (04/04/17 17:30) Troponin I (04/04/17 19:30) Labs Laboratory Tests Test 04/04/17 16:25 04/04/17 17:20 04/04/17 19:35 White Blood Count 9.3 TH/MM3 Red Blood Count 4.50 MIL/MM3 Hemoglobin 14.4 GM/DL Hematocrit 42.9 % Mean Corpuscular Volume 95.3 FL Mean Corpuscular Hemoglobin 32.0 PG Mean Corpuscular Hemoglobin Concent 33.6 % Red Cell Distribution Width 12.8 % Platelet Count 225 TH/MM3 Mean Platelet Volume 9.8 FL Neutrophils (%) (Auto) 82.3 % Lymphocytes (%) (Auto) 13.0 % Monocytes (%) (Auto) 3.2 % Eosinophils (%) (Auto) 1.0 % Basophils (%) (Auto) 0.5 % Neutrophils # (Auto) 7.7 TH/MM3 Lymphocytes # (Auto) 1.2 TH/MM3 Monocytes # (Auto) 0.3 TH/MM3 Eosinophils # (Auto) 0.1 TH/MM3 Basophils # (Auto) 0.0 TH/MM3 CBC Comment DIFF FINAL Differential Comment Prothrombin Time 10.1 SEC Prothromb Time International Ratio 1.0 RATIO Activated Partial Thromboplast Time 25.5 SEC D-Dimer Quantitative (PE/DVT) 0.26 MG/L FEU Blood Urea Nitrogen 11 MG/DL Creatinine 0.85 MG/DL Random Glucose 131 MG/DL Total Protein 7.1 GM/DL Albumin 3.5 GM/DL Calcium Level 8.3 MG/DL Alkaline Phosphatase 120 U/L Aspartate Amino Transf (AST/SGOT) 14 U/L Alanine Aminotransferase (ALT/SGPT) 35 U/L Total Bilirubin 0.4 MG/DL Sodium Level 136 MEQ/L Potassium Level 4.2 MEQ/L Chloride Level 105 MEQ/L Carbon Dioxide Level 23.3 MEQ/L Anion Gap 8 MEQ/L Estimat Glomerular Filtration Rate 96 ML/MIN Total Creatine Kinase 97 U/L Troponin I LESS THAN 0.02 NG/ML LESS THAN 0.02 NG/ML Urine Opiates Screen NEG Urine Barbiturates Screen NEG Urine Amphetamines Screen NEG Urine Benzodiazepines Screen NEG Urine Cocaine Screen NEG Urine Cannabinoids Screen NEG MDM Medical Decision Making Medical Screen Exam Complete: Yes Emergency Medical Condition: Yes Interpretation(s) EKG: Sinus, rate 80, normal axis, normal intervals, no acute ischemic abnormality. Differential Diagnosis ACS, pneumothorax or peritonitis, PE, pneumonia, anxiety Narrative Course Vital signs show heart rate 90, blood pressure 131/85, pulse ox 98% on room air , oral temp of 97.5F. CBC is unremarkable. CMP is remarkable for random glucose 131, otherwise unremarkable. Cardiac enzymes are negative. D-dimer is negative at 0.26. Chest x-ray: No acute disease. No evidence of pneumonia. Patient was given 3 sublingual nitroglycerin and continued to complain of pain. He is panting because of this pain. He was given a dose of IV Toradol and shortly after continued to complain of pain and requested something stronger for his pain. He continued to voice that he felt as though he was going to . I reassured the patient that everything looks normal and attempted to calm him down as he appeared anxious. He continues to request something stronger for his pain. I will give him a small dose of morphine, and a delta troponin will be performed. I did not believe his chest pain is cardiac in nature. Delta troponin 3 hours after the first is also negative. Patient is resting comfortably. I do not believe his pain is cardiopulmonary in nature. His pain seems more musculoskeletal in nature as on reassessment he does have some chest wall tenderness on exam. He is requesting a prescription for a pain medication. I'll give him a prescription for naproxen. He was advised to follow-up with his primary care physician this week. He was informed on when to return to the emergency department. He verbalizes understanding and agreement with plan. Diagnosis Primary Impression: Atypical chest pain Referrals: Primary Care Physician 3 days Additional Instructions: Follow-up with your primary care physician this week. Return to the emergency department for worsening symptoms or any other concerns. Scripts Naproxen (Naproxen) 500 Mg Tab 500 MG PO BID for 7 Days, #14 TAB 0 Refills Prov: Zack Mckeon MD 04/04/17 Disposition: 01 DISCHARGE HOME Condition: Stable Zack Mckeon MD Apr 04, 2017 16:27
[2017-04-04] MEDS: NITROGLYCERIN 0.4 MG SL 25 TABS/BTL SL SCH ×3 (16:29→16:47)
[2017-04-04] MEDS ORDERED: ASPIRIN 81 MG CHEW TAB PO ONE (16:30)
[2017-04-04] MEDS ORDERED: SODIUM CHLORIDE 0.9% FLUSH 10 ML FLUSH IVF PRN (16:30)
[2017-04-04 16:31] LABS: AUTOMATED NEUTROPHIL # 7.7 TH/MM3 (1.8-7.7); BASOPHIL % 0.5 % (0.0-2.0); EOSINOPHIL # 0.1 TH/MM3 (0-0.4); HEMATOCRIT 42.9 % (39.0-51.0); HEMOGLOBIN 14.4 GM/DL (13.0-17.0); LYMPHOCYTE # 1.2 TH/MM3 (1.0-4.8); MEAN CELL VOLUME 95.3 FL (80.0-100.0); MEAN CORPUSCULAR HGB CONC 33.6 % (32.0-36.0); MEAN PLATELET VOLUME 9.8 FL (7.0-11.0); MONO % 3.2 % (0.0-8.0); MONOCYTE # 0.3 TH/MM3 (0-0.9); NEUT % 82.3 % (16.0-70.0); PLATELET COUNT 225 TH/MM3 (150-450); RED CELL DISTRIBUTION WIDTH 12.8 % (11.6-17.2); WHITE BLOOD COUNT 9.3 TH/MM3 (4.0-11.0)
[2017-04-04] MEDS ORDERED: MELO15TA20 PO (16:35)
[2017-04-04 16:41] LABS: CHLORIDE 105 MEQ/L (98-107); SODIUM (NA) 136 MEQ/L (136-145)
[2017-04-04 16:44] LABS: CALCIUM 8.3 MG/DL (8.5-10.1)
[2017-04-04 16:45] LABS: ALBUMIN 3.5 GM/DL (3.4-5.0); BICARBONATE 23.3 MEQ/L (21.0-32.0); BLOOD UREA NITROGEN 11 MG/DL (7-18); GLUCOSE,RANDOM 131 MG/DL (74-106)
[2017-04-04] MEDS ORDERED: KETOROLAC TROMETHAMINE 30 MG/ML (IVP) VIAL IV PUSH ONE (16:45)
[2017-04-04 16:48] LABS: ALT (GPT) 35 U/L (12-78); AST (GOT) 14 U/L (15-37); CREATININE 0.85 MG/DL (0.60-1.30); GLOMERULAR FILTRATION RATE 96 ML/MIN (>89)
[2017-04-04 16:49] LABS: TOTAL BILIRUBIN ADULT 0.4 MG/DL (0.2-1.0); TOTAL PROTEIN 7.1 GM/DL (6.4-8.2)
[2017-04-04 16:51] LABS: ALKALINE PHOSPHATASE 120 U/L (45-117)
[2017-04-04 16:53] LABS: TROPONIN I LESS THAN 0.02 NG/ML (0.02-0.05)
[2017-04-04 17:11] LABS: PROTHROMBIN TIME - PATIENT 10.1 SEC (9.8-11.6)
[2017-04-04 17:12] LABS: D-DIMER 0.26 MG/L FEU (0.00-0.50)
--- NOTE | 2017-04-04 17:15 | RADRPT ---
EXAM DATE/TIME: 04/04/2017 16:51 [facility] COMPARISON: CHEST SINGLE AP, February 26, 2017, 22:57. INDICATIONS : Chest pain for 1 hour, short of breath, cough MEDICAL HISTORY : Chronic obstructive pulmonary disease. Congestive heart failure. SURGICAL HISTORY : None. ENCOUNTER: Initial ACUITY: 1 day PAIN SCORE: 8/10 LOCATION: Bilateral chest FINDINGS: A single view of the chest demonstrates the lungs to be symmetrically aerated without evidence of mas s, infiltrate or effusion. The cardiomediastinal contours are unremarkable. Osseous structures are intact. CONCLUSION: No acute disease. There is no evidence of pneumonia. Zenon Martinez MD on April 04, 2017 at 17:12 Board Certified Radiologist. This report was verified electronically.
[2017-04-04] MEDS ORDERED: MORPHINE SULFATE 2 MG/ML INJ IV PUSH ONE (17:30)
[2017-04-04] MEDS ORDERED: NAPR500T2 PO (20:28)
--- NOTE | 2017-04-05 15:04 | EKG ---
Date Performed: 04/04/2017 Time Performed: 16:19:30 PTAGE: 46 years EKG: Sinus rhythm Since previous tracing, no significant change noted NORMAL ECG PREVIOUS TRACING : 02/26/2017 23.07 DOCTOR: Medhat Brown Interpretating Date/Time 04/05/2017 15:03:44
== END 2017-04-04 20:38 | disposition home or self-care (01) ==
LOC: PHED 16:15
DX: R07.89 Other chest pain (principal); I50.9 Heart failure, unspecified; I11.0 Hypertensive heart disease with heart failure; J44.9 Chronic obstructive pulmonary disease, unspecified; I42.9 Cardiomyopathy, unspecified; Z88.5 Allergy status to narcotic agent
CPT/HCPCS: 71045; 80053; 80307; 82550; 84484; 85025; 85379; 85610; 85730; 93005; 96374; 96375; 99285; J1885; J2270

== ENCOUNTER 2017-04-13 10:37 | Emergency (ER) | payer SELFPAY ==
[~2017-04-13] VITALS: Ht 182.9 cm; Wt 158.0 kg
[~2017-04-13 10:37] MED LIST changes: -BENZ100 PO; -IBUP1TAB7 PO; +MELO15TA20 PO; +NAPR500T2 PO
[2017-04-13 10:47] VITALS: BP 171/82; PULSE 85; RESP 20; TEMP 97.8; O2SAT 98
[2017-04-13] MEDS ORDERED: AZIT250T3 PO (11:15)
[2017-04-13] MEDS ORDERED: PROMSYP3 PO (11:15)
[2017-04-13] MEDS ORDERED: PRED20 PO (11:15)
--- NOTE | 2017-04-13 11:16 | PD ---
HPI Chief Complaint: Cold / Flu Symptoms Time Seen by Provider: 11:02 Travel History International Travel<30 days: No Contact w/Intl Traveler<30days: No Traveled to known affect area: No History of Present Illness HPI This is a 46-year-old male here with productive cough 4 days. He is reporting colored phlegm. Subjective fevers. Symptoms severity moderate. Unrelieved by Tessalon pearls. Patient has a history of asthma and smoker. No aggravating or alleviating factors. No sick contacts or foreign travel. PFSH Past Medical History Arthritis: No Asthma: Yes Autoimmune Disease: No Blood Disorders: No Anxiety: No Depression: Yes Heart Rhythm Problems: No Cancer: No Cardiomyopathy: Yes Cardiovascular Problems: Yes (CHF, HTN) High Cholesterol: No Chemotherapy: No Chest Pain: Yes Congestive Heart Failure: Yes COPD: Yes Cerebrovascular Accident: No Diabetes: No Diminished Hearing: No Endocrine: No Gastrointestinal Disorders: No Genitourinary: No Headaches: Yes Hypertension: Yes Immune Disorder: No Implanted Vascular Access Dvce: Yes Musculoskeletal: Yes Neurologic: Yes Psychiatric: Yes Reproductive: No Respiratory: Yes (COPD) Immunizations Current: Yes Migraines: Yes Radiation Therapy: No Seizures: Yes (hasn't had in 3 years since implant was taken out) Sleep Apnea: Yes Thyroid Disease: No PNEUMOCCOCAL Vaccine (Year): 2 Past Surgical History Abdominal Surgery: Yes (gallbladder) AICD: No Arteriovenous Shunt: No Body Medical Devices: IMPLANT FOR MIGRAINES none now Cardiac Surgery: No Cholecystectomy: Yes Ear Surgery: No Endocrine Surgery: No Eye Surgery: No Genitourinary Surgery: No Gynecologic Surgery: No Insulin Pump: No Joint Replacement: No Neurologic Surgery: Yes (BRAIN IMPLANT FOR MIGRAINES-HAS BEEN REMOVED) Oral Surgery: No Pacemaker: No Thoracic Surgery: No Other Surgery: Yes (brain, implanted device for mirgaine, removed ) Social History Alcohol Use: No Tobacco Use: No Substance Use: No Allergies-Medications (Allergen,Severity, Reaction): Coded Allergies: caffeine (Verified Allergy, Severe, RASH, 04/13/17) codeine (Verified Allergy, Severe, Itching, 04/13/17) propoxyphene (Verified Allergy, Severe, ABD. CRAMS, 04/13/17) Reported Meds & Prescriptions Reported Meds & Active Scripts Active Reported Albuterol Neb (Albuterol Sulfate) 2.5 Mg/0.5 Ml Neb 2.5 Mg NEB Q4HR NEB PRN Note: The Albuterol Sulfate Inhalation Solution is concentrated and must be diluted. Read complete instructions carefully before using. Lisinopril 20 Mg Tab 20 Mg PO DAILY Aspirin 81 (Aspirin) 81 Mg Tabdr 81 Mg PO DAILY Review of Systems Except as stated in HPI: all other systems reviewed are Neg General / Constitutional: Positive: Fever Eyes: No: Visual changes HENT: No: Headaches Cardiovascular: No: Chest Pain or Discomfort Respiratory: Positive: Cough, Wheezing Gastrointestinal: No: Abdominal Pain Genitourinary: No: Dysuria Physical Exam Narrative GENERAL: Well-nourished, well-developed patient. SKIN: Focused skin assessment warm/dry. HEAD: Normocephalic. EYES: No scleral icterus. No injection or drainage. Ear/nose/throat; no TM erythema. Clear nasal discharge. No pharyngeal erythema , tonsillar hypertrophy or exudate. NECK: Supple, trachea midline. Meningismus CARDIOVASCULAR: Regular rate and rhythm without murmurs, gallops, or rubs. RESPIRATORY: Breath sounds equal bilaterally. No accessory muscle use. Rhonchorous cough. Faint expiratory wheeze clears with cough GASTROINTESTINAL: Abdomen soft, non-tender, nondistended. MUSCULOSKELETAL: No cyanosis, or edema. Data Data Last Documented VS Vital Signs Date Time Temp Pulse Resp B/P (MAP) Pulse Ox O2 Delivery O2 Flow Rate FiO2 04/13/17 10:47 97.8 85 20 171/82 (111) 98 MDM Medical Decision Making Medical Screen Exam Complete: Yes Emergency Medical Condition: Yes Differential Diagnosis Bronchitis, pneumonia, influenza, COPD exacerbation Narrative Course 46-year-old male here with productive cough 4 days. History of COPD. Clinically he is nontoxic appearing. He is out of the timeframe for Tamiflu therefore influenza is not tested. He does have slight expiratory wheeze and a rhonchorous cough. He will be treated with azithromycin, prednisone, antitussives. Was instructed to continue his albuterol nebs at home. Follow up with his primary doctor. Return if he develops new or worsening symptoms. Diagnosis Primary Impression: Bronchitis Referrals: Primary Care Physician Additional Instructions: Medication as prescribed. Continue albuterol nebs as directed. Stay well-hydrated Follow-up with her primary doctor. Scripts Dextromethorphan-Promethazine Liq (Promethazine-Dextromethorphan Liq) 6.25-15 Mg /5 Ml Syrp 10 ML PO Q6HR Y for COUGH, #120 ML Prov: Phylicia Franco 04/13/17 Prednisone (Prednisone) 20 Mg Tab 40 MG PO DAILY, #10 TAB 0 Refills Take 40 mg (2 tablets) daily for 5 days Prov: Phylicia Franco 04/13/17 Azithromycin (Azithromycin) 250 Mg Tab 250 MG PO DIRECTED for Infection, #6 TAB 0 Refills Take 2 tabs (500 mg) on day 1 then 1 tab daily x 4 days. Prov: Phylicia Franco 04/13/17 Disposition: 01 DISCHARGE HOME Condition: Stable Phylicia Franco Apr 13, 2017 11:16
== END 2017-04-13 11:20 | disposition home or self-care (01) ==
LOC: PHEFT 10:37
DX: J44.9 Chronic obstructive pulmonary disease, unspecified (principal); I11.0 Hypertensive heart disease with heart failure; I50.9 Heart failure, unspecified
CPT/HCPCS: 99284

== ENCOUNTER 2017-04-24 14:34 | Emergency (ER) | payer SELFPAY ==
[~2017-04-24] VITALS: Ht 182.9 cm; Wt 160.2 kg
[~2017-04-24 14:34] MED LIST changes: +AZIT250T3 PO; -MELO15TA20 PO; -NAPR500T2 PO; +PRED20 PO; +PROMSYP3 PO
[2017-04-24 14:42] VITALS: BP 185/99; PULSE 101; RESP 16; TEMP 98.2; O2SAT 98
[2017-04-24] MEDS ORDERED: BACT800T5 PO (15:15)
--- NOTE | 2017-04-24 15:22 | PD ---
HPI Chief Complaint: GI Complaint Time Seen by Provider: 15:03 Travel History International Travel<30 days: No Contact w/Intl Traveler<30days: No Traveled to known affect area: No History of Present Illness HPI This patient complains of cough. He's been coughing for 3 weeks. He quit smoking 5 years ago. He uses a nebulizer at home for his COPD. He denies fever. Symptoms severity is moderate. No alleviating factors. No exacerbating factors. He does have some runny nose and congestion. He also complains of some facial lesions on his left brow that if cropped up recently PFS Past Medical History Hx Anticoagulant Therapy: Yes (asa 81mg daily) Arthritis: No Asthma: Yes Autoimmune Disease: No Blood Disorders: No Anxiety: No Depression: Yes Heart Rhythm Problems: No Cancer: No Cardiomyopathy: Yes Cardiovascular Problems: Yes (htn on meds) High Cholesterol: No Chemotherapy: No Chest Pain: Yes Congestive Heart Failure: Yes COPD: Yes Cerebrovascular Accident: No Diabetes: No Diminished Hearing: No Endocrine: No Gastrointestinal Disorders: No Genitourinary: No Headaches: Yes Hypertension: Yes Immune Disorder: No Implanted Vascular Access Dvce: Yes Musculoskeletal: Yes Neurologic: Yes Psychiatric: Yes Reproductive: No Respiratory: Yes (copd, chf) Immunizations Current: Yes Migraines: Yes Radiation Therapy: No Seizures: Yes (hasn't had in 3 years since implant was taken out) Sleep Apnea: Yes Thyroid Disease: No PNEUMOCCOCAL Vaccine (Year): 2 ?: Not Past Surgical History Abdominal Surgery: Yes (gallbladder) AICD: No Arteriovenous Shunt: No Body Medical Devices: IMPLANT FOR MIGRAINES none now Cardiac Surgery: No Cholecystectomy: Yes Ear Surgery: No Endocrine Surgery: No Eye Surgery: No Genitourinary Surgery: No Gynecologic Surgery: No Insulin Pump: No Joint Replacement: No Neurologic Surgery: Yes (BRAIN IMPLANT FOR MIGRAINES-HAS BEEN REMOVED) Oral Surgery: No Pacemaker: No Thoracic Surgery: No Other Surgery: Yes (brain, implanted device for mirgaine, removed ) Social History Alcohol Use: No Tobacco Use: No Substance Use: No Allergies-Medications (Allergen,Severity, Reaction): Coded Allergies: caffeine (Verified Allergy, Severe, RASH, 04/24/17) codeine (Verified Allergy, Severe, Itching, 04/24/17) propoxyphene (Verified Allergy, Severe, ABD. CRAMS, 04/24/17) Reported Meds & Prescriptions Reported Meds & Active Scripts Active Bactrim DS (Sulfamethoxazole-Trimethoprim) 800-160 Mg Tab 1 Tab PO BID Reported Albuterol Neb (Albuterol Sulfate) 2.5 Mg/0.5 Ml Neb 2.5 Mg NEB Q4HR NEB PRN Note: The Albuterol Sulfate Inhalation Solution is concentrated and must be diluted. Read complete instructions carefully before using. Lisinopril 20 Mg Tab 20 Mg PO DAILY Aspirin 81 (Aspirin) 81 Mg Tabdr 81 Mg PO DAILY Review of Systems General / Constitutional: No: Fever Cardiovascular: No: Chest Pain or Discomfort Respiratory: No: Cough Physical Exam Narrative RESPIRATORY: Respiratory effort unlabored, no retractions or use of accessory muscles. Breath sounds are clear and symmetric. CARDIOVASCULAR: Regular rate and rhythm without murmur. Extremities showed no edema or varicosities. GASTROINTESTINAL: Abdomen soft, non-tender, nondistended. Positive bowel sounds. No hepato-splenomegaly, or palpable masses. No guarding. Face: Has some scabbed lesions over the left brow with some honey crusting. No fluctuance or drainage Data Data Last Documented VS Vital Signs Date Time Temp Pulse Resp B/P (MAP) Pulse Ox O2 Delivery O2 Flow Rate FiO2 04/24/17 14:42 98.2 101 16 185/99 (127) 98 MDM Medical Decision Making Medical Screen Exam Complete: Yes Emergency Medical Condition: Yes Medical Record Reviewed: Yes Differential Diagnosis Bronchitis, pneumonia, COPD Narrative Course I have reviewed the patient's electronic medical record. He is a very frequent visitor. He is clear lungs but a cough for 3 weeks and viral URI signs He has a nebulizer to use at home He no longer smokes I wrote him some Bactrim for facial infection lesions which I suspect are staph I suggested many possible reasons for his prolonged cough but he dismissed them all readily I discussed Olivier inhibitor induced cough and he scoffed at that Diagnosis Primary Impression: Cough Additional Impression: Chronic obstructive pulmonary disease Qualified Codes: J44.9 - Chronic obstructive pulmonary disease, unspecified Additional Instructions: The patient was advised to follow up with their physician and return if they worsen. Med/Other Pt SpecificInfo: Prescription(s) given Scripts Sulfamethoxazole-Trimethoprim (Bactrim DS) 800-160 Mg Tab 1 TAB PO BID for Infection, #14 TAB 0 Refills Prov: Jacinto Whiting MD 04/24/17 Disposition: 01 DISCHARGE HOME Condition: Stable Jacitno Whiting MD Apr 24, 2017 15:22
== END 2017-04-24 15:40 | disposition home or self-care (01) ==
LOC: PHED 14:34
DX: J44.9 Chronic obstructive pulmonary disease, unspecified (principal); I11.0 Hypertensive heart disease with heart failure; I50.9 Heart failure, unspecified; I42.9 Cardiomyopathy, unspecified; R56.9 Unspecified convulsions; F32.9 Major depressive disorder, single episode, unspecified; Z87.891 Personal history of nicotine dependence; Z79.82 Long term (current) use of aspirin; Z79.899 Other long term (current) drug therapy
CPT/HCPCS: 99283

== ENCOUNTER 2017-06-26 11:39 | Emergency (ER) | payer OTHER ==
[~2017-06-26] VITALS: Ht 182.9 cm; Wt 161.0 kg
[~2017-06-26 11:39] MED LIST changes: -AZIT250T3 PO; +BACT800T5 PO; -PRED20 PO; -PROMSYP3 PO
[2017-06-26 11:42] VITALS: BP_SYST 153; BP_SYST 85; BP_DIAS 18; BP_DIAS 98; PULSE 85; PULSE 96; RESP 16; TEMP 97.4; O2SAT 97
[2017-06-26] MEDS ORDERED: SODIUM CHLOR 0.9% 1000 ML INJ 1,000 ML IV SCH (12:12)
--- NOTE | 2017-06-26 12:13 | PD ---
HPI Chief Complaint: GI Complaint Time Seen by Provider: 12:07 Travel History International Travel<30 days: No Contact w/Intl Traveler<30days: No Traveled to known affect area: No History of Present Illness HPI Patient is a 46-year-old male presents emergency department for evaluation of epigastric pain nausea without vomiting no diarrhea no constipation. Patient states his symptoms started yesterday. He has never had these type symptoms before. He is wondering if it might be an ulcer. No chest pain no shortness of breath no diarrhea no constipation. His only had one episode of nonbilious nonbloody emesis. No fevers no cough no congestion. Symptoms are moderate, epigastric, no radiation, associated signs and symptoms as above. PFSH Past Medical History Hx Anticoagulant Therapy: Yes (asa 81mg daily) Arthritis: No Asthma: Yes Autoimmune Disease: No Blood Disorders: No Anxiety: No Depression: Yes Heart Rhythm Problems: No Cancer: No Cardiomyopathy: Yes Cardiovascular Problems: Yes (htn on meds) High Cholesterol: No Chemotherapy: No Chest Pain: Yes Congestive Heart Failure: Yes COPD: Yes Cerebrovascular Accident: No Diabetes: No Diminished Hearing: No Endocrine: No Gastrointestinal Disorders: No Genitourinary: No Headaches: Yes Hypertension: Yes Immune Disorder: No Implanted Vascular Access Dvce: Yes Musculoskeletal: Yes Neurologic: Yes Psychiatric: Yes Reproductive: No Respiratory: Yes (copd, chf) Immunizations Current: Yes Migraines: Yes Radiation Therapy: No Seizures: Yes Sleep Apnea: Yes Thyroid Disease: No Influenza Vaccination: Yes PNEUMOCCOCAL Vaccine (Year): 2 Past Surgical History Abdominal Surgery: Yes (gallbladder) AICD: No Arteriovenous Shunt: No Body Medical Devices: IMPLANT FOR MIGRAINES none now Cardiac Surgery: No Cholecystectomy: Yes Ear Surgery: No Endocrine Surgery: No Eye Surgery: No Genitourinary Surgery: No Gynecologic Surgery: No Insulin Pump: No Joint Replacement: No Neurologic Surgery: Yes (BRAIN IMPLANT FOR MIGRAINES-HAS BEEN REMOVED) Oral Surgery: No Pacemaker: No Thoracic Surgery: No Other Surgery: Yes (brain, implanted device for mirgaine, removed ) Social History Alcohol Use: No Tobacco Use: No (QUIT 5 YEARS AGO) Substance Use: No Allergies-Medications (Allergen,Severity, Reaction): Coded Allergies: caffeine (Verified Allergy, Severe, RASH, 06/26/17) codeine (Verified Allergy, Severe, Itching, 06/26/17) propoxyphene (Verified Allergy, Severe, ABD. CRAMS, 06/26/17) Reported Meds & Prescriptions Reported Meds & Active Scripts Active Zofran (Ondansetron HCl) 4 Mg Tab 4 Mg PO Q6HR PRN Zantac (Ranitidine HCl) 150 Mg Tab 150 Mg PO DAILY Reported Albuterol Neb (Albuterol Sulfate) 2.5 Mg/0.5 Ml Neb 2.5 Mg NEB Q4HR NEB PRN Note: The Albuterol Sulfate Inhalation Solution is concentrated and must be diluted. Read complete instructions carefully before using. Lisinopril 20 Mg Tab 20 Mg PO DAILY Aspirin 81 (Aspirin) 81 Mg Tabdr 81 Mg PO DAILY Review of Systems Except as stated in HPI: all other systems reviewed are Neg Physical Exam Narrative GENERAL: Well-developed well-nourished no obvious distress morbidly obese peer SKIN: Focused skin assessment warm/dry. HEAD: Atraumatic. Normocephalic. EYES: Pupils equal and round. No scleral icterus. No injection or drainage. ENT: No nasal bleeding or discharge. Mucous membranes pink and moist. NECK: Trachea midline. No JVD. CARDIOVASCULAR: Regular rate and rhythm. No murmur appreciated. RESPIRATORY: No accessory muscle use. Clear to auscultation. Breath sounds equal bilaterally. GASTROINTESTINAL: Abdomen soft, non-tender, nondistended. Hepatic and splenic margins not palpable. Logan sign negative, Rovsing sign negative, no CVA tenderness, no peritoneal signs. MUSCULOSKELETAL: No obvious deformities. No clubbing. No cyanosis. No edema. NEUROLOGICAL: Awake and alert. No obvious cranial nerve deficits. Motor grossly within normal limits. Normal speech. PSYCHIATRIC: Appropriate mood and affect; insight and judgment normal. Data Data Last Documented VS Vital Signs Date Time Temp Pulse Resp B/P (MAP) Pulse Ox O2 Delivery O2 Flow Rate FiO2 06/26/17 15:26 06/26/17 14:37 77 18 96 Room Air 06/26/17 11:42 97.4 Orders Orders Complete Blood Count With Diff (06/26/17 12:12) Comprehensive Metabolic Panel (06/26/17 12:12) Lipase (06/26/17 12:12) Prothrombin Time / Inr (Pt) (06/26/17 12:12) Act Partial Throm Time (Ptt) (06/26/17 12:12) Iv Access Insert/Monitor (06/26/17 12:12) Ecg Monitoring (06/26/17 12:12) Oximetry (06/26/17 12:12) Ondansetron Inj (Zofran Inj) (06/26/17 12:15) Sodium Chlor 0.9% 1000 Ml Inj (Ns 1000 M (06/26/17 12:12) Sodium Chloride 0.9% Flush (Ns Flush) (06/26/17 12:15) Electrocardiogram (06/26/17 12:12) Ketorolac Inj (Toradol Inj) (06/26/17 12:15) Troponin I (06/26/17 12:12) Ct Abd/Pel W Iv Contrast(Rout) (06/26/17 ) Acetamin-Hydrocod 325-5 Mg ([place] 5-325 (06/26/17 13:15) Chest, Single Ap (06/26/17 ) Iohexol 350 Inj (Omnipaque 350 Inj) (06/26/17 14:11) Ed Discharge Order (06/26/17 15:16) Labs Laboratory Tests Test 06/26/17 12:15 White Blood Count 6.7 TH/MM3 Red Blood Count 4.82 MIL/MM3 Hemoglobin 15.1 GM/DL Hematocrit 45.4 % Mean Corpuscular Volume 94.2 FL Mean Corpuscular Hemoglobin 31.4 PG Mean Corpuscular Hemoglobin Concent 33.3 % Red Cell Distribution Width 12.6 % Platelet Count 175 TH/MM3 Mean Platelet Volume 10.5 FL Neutrophils (%) (Auto) 68.0 % Lymphocytes (%) (Auto) 22.5 % Monocytes (%) (Auto) 6.1 % Eosinophils (%) (Auto) 2.0 % Basophils (%) (Auto) 1.4 % Neutrophils # (Auto) 4.6 TH/MM3 Lymphocytes # (Auto) 1.5 TH/MM3 Monocytes # (Auto) 0.4 TH/MM3 Eosinophils # (Auto) 0.1 TH/MM3 Basophils # (Auto) 0.1 TH/MM3 CBC Comment DIFF FINAL Differential Comment Prothrombin Time 10.2 SEC Prothromb Time International Ratio 1.0 RATIO Activated Partial Thromboplast Time 26.3 SEC Blood Urea Nitrogen 7 MG/DL Creatinine 0.67 MG/DL Random Glucose 109 MG/DL Total Protein 7.6 GM/DL Albumin 3.8 GM/DL Calcium Level 8.9 MG/DL Alkaline Phosphatase 124 U/L Aspartate Amino Transf (AST/SGOT) 19 U/L Alanine Aminotransferase (ALT/SGPT) 40 U/L Total Bilirubin 0.5 MG/DL Sodium Level 139 MEQ/L Potassium Level 3.7 MEQ/L Chloride Level 108 MEQ/L Carbon Dioxide Level 23.8 MEQ/L Anion Gap 7 MEQ/L Estimat Glomerular Filtration Rate 127 ML/MIN Troponin I LESS THAN 0.02 NG/ML Lipase 176 U/L [facility] Medical Decision Making Medical Screen Exam Complete: Yes Emergency Medical Condition: Yes Differential Diagnosis Reflux, gastritis, peptic ulcer disease, pancreatitis, acute abdomen highly unlikely peer Narrative Course Patient room to the emergency department, given Toradol, basic labs are reassuring. Patient states pain still getting worse and requested more for pain medicine, CT abdomen indicated and is performed and shows no acute intra- abdominal abnormality. Morphine was given patient feeling better. Discussed he cannot drive home, discussed need for follow-up with a scooping machine tender for consideration of endoscopy and colonoscopy. His pain is better under control after morphine. He is stable for discharge Diagnosis Primary Impression: Epigastric abdominal pain Referrals: Yun Zavala MD Patient Instructions: Gastroesophageal Reflux Disease (DC), General Instructions Med/Other Pt SpecificInfo: Prescription(s) given Scripts Ondansetron (Zofran) 4 Mg Tab 4 MG PO Q6HR Y for NAUSEA OR VOMITING, #20 TAB 0 Refills Prov: Dg Fonseca MD 06/26/17 Ranitidine (Zantac) 150 Mg Tab 150 MG PO DAILY for Reduce Stomach Acid, #30 TAB 0 Refills Prov: Dg Fonseca MD 06/26/17 Disposition: 01 DISCHARGE HOME Condition: Stable Dg Fonseca MD Jun 26, 2017 12:13
[2017-06-26] MEDS ORDERED: ONDANSETRON HCL 4 MG/2 ML VIAL IVP ONE (12:15)
[2017-06-26] MEDS ORDERED: SODIUM CHLORIDE 0.9% FLUSH 10 ML FLUSH IV FLUSH PRN (12:15)
[2017-06-26] MEDS ORDERED: KETOROLAC TROMETHAMINE 30 MG/ML (IVP) VIAL IVP ONE (12:15)
[2017-06-26 12:34] LABS: AUTOMATED NEUTROPHIL # 4.6 TH/MM3 (1.8-7.7); BASOPHIL # 0.1 TH/MM3 (0-0.2); BASOPHIL % 1.4 % (0.0-2.0); EOSINOPHIL # 0.1 TH/MM3 (0-0.4); HEMATOCRIT 45.4 % (39.0-51.0); HEMOGLOBIN 15.1 GM/DL (13.0-17.0); LYMPH % 22.5 % (9.0-44.0); LYMPHOCYTE # 1.5 TH/MM3 (1.0-4.8); MEAN CELL VOLUME 94.2 FL (80.0-100.0); MEAN CORPUSCULAR HEMOGLOBIN 31.4 PG (27.0-34.0); MEAN CORPUSCULAR HGB CONC 33.3 % (32.0-36.0); MEAN PLATELET VOLUME 10.5 FL (7.0-11.0); MONO % 6.1 % (0.0-8.0); MONOCYTE # 0.4 TH/MM3 (0-0.9); PLATELET COUNT 175 TH/MM3 (150-450); RED BLOOD COUNT 4.82 MIL/MM3 (4.50-5.90); RED CELL DISTRIBUTION WIDTH 12.6 % (11.6-17.2); WHITE BLOOD COUNT 6.7 TH/MM3 (4.0-11.0)
[2017-06-26 12:44] LABS: CHLORIDE 108 MEQ/L (98-107); SODIUM (NA) 139 MEQ/L (136-145)
[2017-06-26 12:47] LABS: CALCIUM 8.9 MG/DL (8.5-10.1)
[2017-06-26 12:48] LABS: ALBUMIN 3.8 GM/DL (3.4-5.0); BICARBONATE 23.8 MEQ/L (21.0-32.0); BLOOD UREA NITROGEN 7 MG/DL (7-18); GLUCOSE,RANDOM 109 MG/DL (74-106)
[2017-06-26 12:49] LABS: PROTHROMBIN TIME - PATIENT 10.2 SEC (9.8-11.6)
[2017-06-26 12:50] LABS: ALT (GPT) 40 U/L (12-78); AST (GOT) 19 U/L (15-37)
[2017-06-26 12:51] LABS: CREATININE 0.67 MG/DL (0.60-1.30); GLOMERULAR FILTRATION RATE 127 ML/MIN (>89)
[2017-06-26 12:52] LABS: TOTAL BILIRUBIN ADULT 0.5 MG/DL (0.2-1.0); TOTAL PROTEIN 7.6 GM/DL (6.4-8.2)
[2017-06-26 12:53] LABS: ALKALINE PHOSPHATASE 124 U/L (45-117)
[2017-06-26 12:56] LABS: TROPONIN I LESS THAN 0.02 NG/ML (0.02-0.05)
[2017-06-26 13:08] VITALS: RESP 18; O2SAT 97
[2017-06-26 13:14] VITALS: BP 165/92; PULSE 70; RESP 18; O2SAT 97
[2017-06-26] MEDS ORDERED: ACETAMINOPHEN/HYDROcodone 325 MG/5 MG TAB PO ONE (13:15)
[2017-06-26] MEDS ORDERED: IOHEXOL 350 MG/ML 10 ML VIAL (for RAD DIAG) IVCONTRAST ONE (14:11)
--- NOTE | 2017-06-26 14:22 | RADRPT ---
EXAM DATE/TIME: 06/26/2017 13:24 [facility] COMPARISON: CHEST SINGLE AP, April 04, 2017, 16:51. INDICATIONS : Chest pain. MEDICAL HISTORY : None. SURGICAL HISTORY : None. ENCOUNTER: Initial ACUITY: 1 day PAIN SCORE: 6/10 LOCATION: Bilateral chest FINDINGS: Lungs are hypoaerated with some mild basilar interstitial vascular crowding especially on the right. No evidence of consolidating airspace disease. Moderate cardiomegaly. Osseous structures are intact. CONCLUSION: Cardiomegaly without evidence of acute process. Stephan Felix MD on June 26, 2017 at 14:19 Board Certified Radiologist. This report was verified electronically.
[2017-06-26 14:37] VITALS: BP 115/84; PULSE 77; RESP 18; O2SAT 96
--- NOTE | 2017-06-26 15:12 | RADRPT ---
EXAM DATE/TIME: 06/26/2017 14:00 [facility] COMPARISON: CT ABDOMEN & PELVIS W CONTRAST, February 26, 2017, 22:45. INDICATIONS : Mid abdominal pain, nausea, chills. IV CONTRAST: 75 cc Omnipaque 350 (iohexol) IV ORAL CONTRAST: No oral contrast ingested. RADIATION DOSE: 22.38 CTDIvol (mGy) ; Patient body habitus MEDICAL HISTORY : Hypertension. Congestive heart failure. Chronic obstructive pulmonary disease.Asthma, Migraines SURGICAL HISTORY : Cholecystectomy. Orthopedic ENCOUNTER: Initial ACUITY: 1 day PAIN SCALE: 6/10 LOCATION: Bilateral middle abdomen TECHNIQUE: Volumetric scanning of the abdomen and pelvis was performed. Using automated exposure control and ad justment of the mA and/or kV according to patient size, radiation dose was kept as low as reasonably achievable to obtain optimal diagnostic quality images. DICOM format image data is available electro nically for review and comparison. FINDINGS: LOWER LUNGS: The visualized lower lungs are clear. LIVER: Homogeneous density without lesion. There is no dilation of the biliary tree. No calcified gallston es. SPLEEN: Normal size without lesion. PANCREAS: Within normal limits. KIDNEYS: Normal in size and shape. There is no mass, stone or hydronephrosis. ADRENAL GLANDS: Within normal limits. VASCULAR: There is no aortic aneurysm. BOWEL/MESENTERY: The stomach, small bowel, and colon demonstrate no acute abnormality. There is no free intraperitone al air or fluid. ABDOMINAL WALL: Within normal limits. RETROPERITONEUM: There is no lymphadenopathy. BLADDER: No wall thickening or mass. REPRODUCTIVE: Within normal limits. INGUINAL: There is no lymphadenopathy or hernia. MUSCULOSKELETAL: Within normal limits for patient age. CONCLUSION: No acute disease. Stephan Felix MD on June 26, 2017 at 15:08 Board Certified Radiologist. This report was verified electronically.
[2017-06-26] MEDS ORDERED: ZANT150T2 PO (15:15)
[2017-06-26] MEDS ORDERED: ZOFR4TAB PO (15:21)
--- NOTE | 2017-06-28 09:46 | EKG ---
Date Performed: 06/26/2017 Time Performed: 12:21:26 PTAGE: 46 years EKG: Sinus rhythm NORMAL ECG PREVIOUS TRACING : 04/04/2017 16.19 Since the previous tracing, no significant change noted DOCTOR: Rolando Carlos Interpretating Date/Time 06/28/2017 09:45:50
== END 2017-06-26 15:30 | disposition home or self-care (01) ==
LOC: PHED 11:39
DX: R10.13 Epigastric pain (principal); I11.0 Hypertensive heart disease with heart failure; F32.9 Major depressive disorder, single episode, unspecified; I42.9 Cardiomyopathy, unspecified; I50.9 Heart failure, unspecified; J44.9 Chronic obstructive pulmonary disease, unspecified; Z79.82 Long term (current) use of aspirin; Z87.891 Personal history of nicotine dependence
CPT/HCPCS: 71045; 74177; 80053; 83690; 84484; 85025; 85610; 85730; 93005; 96361; 96374; 96375; 99285; J1885; J2405; J7030; Q9967

== ENCOUNTER 2017-06-28 10:47 | Emergency (ER) | payer OTHER ==
[~2017-06-28] VITALS: Ht 182.9 cm; Wt 161.5 kg
[~2017-06-28 10:47] MED LIST changes: +ZANT150T2 PO; +ZOFR4TAB PO
[2017-06-28 10:52] VITALS: BP 172/114; PULSE 89; RESP 16; TEMP 97.7; O2SAT 98
[2017-06-28] MEDS ORDERED: SODIUM CHLOR 0.9% 1000 ML INJ 1,000 ML IV SCH (12:29)
[2017-06-28] MEDS ORDERED: PANTOPRAZOLE SOD 40 MG DELAYED RELEASE TAB PO ONE (12:30)
[2017-06-28] MEDS ORDERED: SODIUM CHLORIDE 0.9% FLUSH 10 ML FLUSH IV FLUSH PRN (12:30)
[2017-06-28] MEDS ORDERED: ALUMINUM/MAGNESIUM/SIMETH 30 ML CUP PO ONE (12:30)
[2017-06-28] MEDS ORDERED: DICYCLOMINE HCL 10 MG CAP PO ONE (12:30)
[2017-06-28] MEDS ORDERED: LIDOCAINE VISCOUS 2% SOLN 15 ML UDC PO ONE (12:30)
[2017-06-28] MEDS ORDERED: CARA1SUS3 PO (12:41)
[2017-06-28] MEDS ORDERED: REGL5TAB PO (12:41)
[2017-06-28] MEDS ORDERED: PROT40TA PO (12:42)
--- NOTE | 2017-06-28 12:43 | PD ---
HPI Chief Complaint: Abdominal Pain Time Seen by Provider: 12:20 Travel History International Travel<30 days: No Contact w/Intl Traveler<30days: No Traveled to known affect area: No History of Present Illness HPI Patient is a 46-year-old male who returns to the emergency room with complaints of moderate abdominal pain. Patient reports that he was seen in the emergency room on June 26, 2017 with complaints of pain to his epigastrium, patient reports that he had a full workup including a CT of the abdomen and pelvis which was benign. Reports that he was discharged home with a prescription for Pepcid as well as Zofran, reports that he cannot afford the Zofran and the Pepcid has not been helping him. Patient reports that he still has persistent pain to the epigastrium, reports that he does feel nauseous with this pain. Patient reports that he has overall decreased oral intake due to this pain. Patient reports that when he tries to eat something, 10 minutes later, he would have increased abdominal pain. Patient denies any chest pain or shortness of breath, denies any fever or chills. Patient denies any diarrhea or constipation. Patient reports that nothing makes pain better or worse. Patient reports that the pain feels exactly the same as to when he was seen on June 26, 2017. Patient was instructed to see a general farmer, he did make a phone call yesterday and is currently waiting for a call back for an appointment as he understands that he will most likely need an EGD [facility] Past Medical History Hx Anticoagulant Therapy: Yes (asa 81mg) Arthritis: No Asthma: Yes Autoimmune Disease: No Blood Disorders: No Anxiety: No Depression: Yes Heart Rhythm Problems: No Cancer: No Cardiomyopathy: Yes Cardiovascular Problems: Yes (htn on meds, chf) High Cholesterol: No Chemotherapy: No Chest Pain: Yes Congestive Heart Failure: Yes COPD: Yes Cerebrovascular Accident: No Diabetes: No Diminished Hearing: No Endocrine: No Gastrointestinal Disorders: No Genitourinary: No Headaches: Yes Hypertension: Yes Immune Disorder: No Implanted Vascular Access Dvce: Yes Musculoskeletal: Yes Neurologic: Yes Psychiatric: Yes Reproductive: No Respiratory: Yes (chf) Immunizations Current: Yes Migraines: Yes Radiation Therapy: No Seizures: Yes Sleep Apnea: Yes Thyroid Disease: No PNEUMOCCOCAL Vaccine (Year): 2 Past Surgical History Abdominal Surgery: Yes (gallbladder) AICD: No Arteriovenous Shunt: No Body Medical Devices: IMPLANT FOR MIGRAINES none now Cardiac Surgery: No Cholecystectomy: Yes Ear Surgery: No Endocrine Surgery: No Eye Surgery: No Genitourinary Surgery: No Gynecologic Surgery: No Insulin Pump: No Joint Replacement: No Neurologic Surgery: Yes (BRAIN IMPLANT FOR MIGRAINES-HAS BEEN REMOVED) Oral Surgery: No Pacemaker: No Thoracic Surgery: No Other Surgery: Yes (brain, implanted device for mirgaine, removed ) Social History Alcohol Use: No Tobacco Use: No (QUIT 5 YEARS AGO) Substance Use: No Allergies-Medications (Allergen,Severity, Reaction): Coded Allergies: caffeine (Verified Allergy, Severe, RASH, 06/28/17) codeine (Verified Allergy, Severe, Itching, 06/28/17) propoxyphene (Verified Allergy, Severe, ABD. CRAMS, 06/28/17) Reported Meds & Prescriptions Reported Meds & Active Scripts Active Protonix (Pantoprazole Sodium) 40 Mg Tab 40 Mg PO DAILY Carafate Liq (Sucralfate) 1 Gm/10 Ml Susp 1 Gm PO TID on empty stomach Reglan (Metoclopramide HCl) 5 Mg Tab 5 Mg PO QID Zofran (Ondansetron HCl) 4 Mg Tab 4 Mg PO Q6HR PRN Zantac (Ranitidine HCl) 150 Mg Tab 150 Mg PO DAILY Reported Albuterol Neb (Albuterol Sulfate) 2.5 Mg/0.5 Ml Neb 2.5 Mg NEB Q4HR NEB PRN Note: The Albuterol Sulfate Inhalation Solution is concentrated and must be diluted. Read complete instructions carefully before using. Lisinopril 20 Mg Tab 20 Mg PO DAILY Aspirin 81 (Aspirin) 81 Mg Tabdr 81 Mg PO DAILY Review of Systems General / Constitutional: No: Fever, Chills Eyes: No: Visual changes HENT: No: Headaches Cardiovascular: No: Chest Pain or Discomfort Respiratory: No: Shortness of Breath Gastrointestinal: Positive: Nausea, Abdominal Pain, No: Vomiting, Diarrhea, Constipation Genitourinary: No: Urgency, Frequency, Dysuria Musculoskeletal: No: Pain Skin: No Rash Neurologic: No: Weakness Psychiatric: No: Depression Endocrine: No: Polydipsia Hematologic/Lymphatic: No: Easy Bruising Physical Exam Narrative GENERAL: mild distress SKIN: Focused skin assessment warm/dry. HEAD: Atraumatic. Normocephalic. EYES: Pupils equal and round. No scleral icterus. No injection or drainage. ENT: No nasal bleeding or discharge. Mucous membranes pink and moist. NECK: Trachea midline. No JVD. CARDIOVASCULAR: Regular rate and rhythm. No murmur appreciated. RESPIRATORY: No accessory muscle use. Clear to auscultation. Breath sounds equal bilaterally. GASTROINTESTINAL: Abdomen soft, tenderness to the epigastrium with no rebound or guarding, nondistended. Hepatic and splenic margins not palpable. MUSCULOSKELETAL: No obvious deformities. No clubbing. No cyanosis. No edema. NEUROLOGICAL: Awake and alert. No obvious cranial nerve deficits. Motor grossly within normal limits. Normal speech. PSYCHIATRIC: Appropriate mood and affect; insight and judgment normal. Data Data Last Documented VS Vital Signs Date Time Temp Pulse Resp B/P (MAP) Pulse Ox O2 Delivery O2 Flow Rate FiO2 06/28/17 12:14 18 06/28/17 10:52 97.7 89 172/114 (133) 98 Orders Orders Complete Blood Count With Diff (06/28/17 12:29) Comprehensive Metabolic Panel (06/28/17 12:29) Lipase (06/28/17 12:29) Iv Access Insert/Monitor (06/28/17 12:29) Oximetry (06/28/17 12:29) Sodium Chlor 0.9% 1000 Ml Inj (Ns 1000 M (06/28/17 12:29) Sodium Chloride 0.9% Flush (Ns Flush) (06/28/17 12:30) Electrocardiogram (06/28/17 12:29) Abdomen, Kub Only (06/28/17 12:29) Dicyclomine (Bentyl) (06/28/17 12:30) Al-Mag Hy-Si 40-40-4 Mg/Ml Liq (Mag-Al P (06/28/17 12:30) Lidocaine 2% Viscous (Xylocaine 2% Visco (06/28/17 12:30) Pantoprazole (Protonix) (06/28/17 12:30) Sucralfate Liq (Carafate Liq) (06/28/17 13:15) Ed Discharge Order (06/28/17 13:52) Labs Laboratory Tests Test 06/28/17 13:00 White Blood Count 6.9 TH/MM3 Red Blood Count 4.82 MIL/MM3 Hemoglobin 15.1 GM/DL Hematocrit 44.8 % Mean Corpuscular Volume 92.8 FL Mean Corpuscular Hemoglobin 31.4 PG Mean Corpuscular Hemoglobin Concent 33.8 % Red Cell Distribution Width 12.1 % Platelet Count 171 TH/MM3 Mean Platelet Volume 10.0 FL Neutrophils (%) (Auto) 64.1 % Lymphocytes (%) (Auto) 26.3 % Monocytes (%) (Auto) 6.8 % Eosinophils (%) (Auto) 1.9 % Basophils (%) (Auto) 0.9 % Neutrophils # (Auto) 4.4 TH/MM3 Lymphocytes # (Auto) 1.8 TH/MM3 Monocytes # (Auto) 0.5 TH/MM3 Eosinophils # (Auto) 0.1 TH/MM3 Basophils # (Auto) 0.1 TH/MM3 CBC Comment DIFF FINAL Differential Comment Blood Urea Nitrogen 11 MG/DL Creatinine 0.74 MG/DL Random Glucose 98 MG/DL Total Protein 7.5 GM/DL Albumin 3.8 GM/DL Calcium Level 8.9 MG/DL Alkaline Phosphatase 126 U/L Aspartate Amino Transf (AST/SGOT) 17 U/L Alanine Aminotransferase (ALT/SGPT) 35 U/L Total Bilirubin 0.5 MG/DL Sodium Level 137 MEQ/L Potassium Level 3.7 MEQ/L Chloride Level 103 MEQ/L Carbon Dioxide Level 26.8 MEQ/L Anion Gap 7 MEQ/L Estimat Glomerular Filtration Rate 113 ML/MIN Lipase 149 U/L MDM Medical Decision Making Medical Screen Exam Complete: Yes Emergency Medical Condition: Yes Medical Record Reviewed: Yes Interpretation(s) EKG at 1234: Normal sinus rhythm at 62 bpm, QT/QTc 407/413, no acute ST-T wave changes Vital Signs Date Time Temp Pulse Resp B/P (MAP) Pulse Ox O2 Delivery O2 Flow Rate FiO2 06/28/17 12:14 18 06/28/17 10:52 97.7 89 16 172/114 (133) 98 Differential Diagnosis GERD, gastritis, gastric ulcer, ACS, arrhythmia Narrative Course 46-year-old male who returns to emergency room with complaints of abdominal pain , patient was seen on June 26, 2017 and had a full workup including a CT of the abdomen and pelvis with contrast which was did not show any acute abdominal process. Patient has not been able to fill his prescription for Zofran as it cost too much, reports the Pepcid has not been helping him. He is in the process of making an appointment with a general farmer as he understands that he will need further evaluation of his symptoms by a specialist. In the meantime, plan to treat patient with medical management for his pain. During the course of the patients emergency department visit, the patients history, examination, and differential diagnosis were reviewed with the patient. The patient was placed on a clutch assembler with oximetry and frequent blood pressure monitoring. The patient had an IV access obtained and blood work sent for analysis. The patient was initially provided GI cocktail, Pepcid as well as IV Zofran. The patients laboratory studies were reviewed and remarkable for : Laboratory Tests Test 06/28/17 13:00 White Blood Count 6.9 TH/MM3 (4.0-11.0) Red Blood Count 4.82 MIL/MM3 (4.50-5.90) Hemoglobin 15.1 GM/DL (13.0-17.0) Hematocrit 44.8 % (39.0-51.0) Mean Corpuscular Volume 92.8 FL (80.0-100.0) Mean Corpuscular Hemoglobin 31.4 PG (27.0-34.0) Mean Corpuscular Hemoglobin Concent 33.8 % (32.0-36.0) Red Cell Distribution Width 12.1 % (11.6-17.2) Platelet Count 171 TH/MM3 (150-450) Mean Platelet Volume 10.0 FL (7.0-11.0) Neutrophils (%) (Auto) 64.1 % (16.0-70.0) Lymphocytes (%) (Auto) 26.3 % (9.0-44.0) Monocytes (%) (Auto) 6.8 % (0.0-8.0) Eosinophils (%) (Auto) 1.9 % (0.0-4.0) Basophils (%) (Auto) 0.9 % (0.0-2.0) Neutrophils # (Auto) 4.4 TH/MM3 (1.8-7.7) Lymphocytes # (Auto) 1.8 TH/MM3 (1.0-4.8) Monocytes # (Auto) 0.5 TH/MM3 (0-0.9) Eosinophils # (Auto) 0.1 TH/MM3 (0-0.4) Basophils # (Auto) 0.1 TH/MM3 (0-0.2) CBC Comment DIFF FINAL Differential Comment Blood Urea Nitrogen 11 MG/DL (7-18) Creatinine 0.74 MG/DL (0.60-1.30) Random Glucose 98 MG/DL (74-106) Total Protein 7.5 GM/DL (6.4-8.2) Albumin 3.8 GM/DL (3.4-5.0) Calcium Level 8.9 MG/DL (8.5-10.1) Alkaline Phosphatase 126 U/L (45-117) Aspartate Amino Transf (AST/SGOT) 17 U/L (15-37) Alanine Aminotransferase (ALT/SGPT) 35 U/L (12-78) Total Bilirubin 0.5 MG/DL (0.2-1.0) Sodium Level 137 MEQ/L (136-145) Potassium Level 3.7 MEQ/L (3.5-5.1) Chloride Level 103 MEQ/L (98-107) Carbon Dioxide Level 26.8 MEQ/L (21.0-32.0) Anion Gap 7 MEQ/L (5-15) Estimat Glomerular Filtration Rate 113 ML/MIN (>89) Lipase 149 U/L (73-393) Patient had a CT of the abdomen and pelvis 2 days ago, discussed with him that I will not reorder imaging study as pain is at baseline in exactly the same as when he was seen on June 26, 2017. KUB ordered to evaluate for any abnormal bowel gas pattern/obvious perforation. KUB: Last Impressions Abdomen X-Ray 06/28/17 1229 Signed Impressions: Service Date/Time: Wednesday, June 28, 2017 12:42 - CONCLUSION: 1. No bowel obstruction, ileus or perforation. 2. Mild degenerative changes and scoliosis of the thoracolumbar spine. Dg Tim MD I do believe the patient most likely has a gastric versus duodenal ulcer, plan to start him on Carafate, Protonix as well as Reglan for nausea. Patient reevaluated, patient is feeling a little better, and reviewed all labs and also is with patient in detail. Patient understands importance of follow- up a general farmer. Patient is requesting NORCO or PERCOCET for his abdominal pain upon discharge "I only need a few days worth" Discussed with him that i cannot provide script for narcotic pain medications for abdominal pain in case he does develop an acute abdomen/perforation, I do not want to mask his symptoms. In addition, narcotics is not the proper treatment for gastritis/ gastric ulcer pain. Signs and symptoms of an acute abdomen was reviewed with patient in detail. he will follow-up as recommended and return to emergency room as needed. Diagnosis Primary Impression: Gastritis and gastroduodenitis Additional Impression: GERD (gastroesophageal reflux disease) Patient Instructions: General Instructions Additional Instructions: Please provide patient with a copy of their lab work and studies at discharge* * Please follow up with your primary care doctor in 2-3 days Return to the ER if symptoms worsen or progress Return to the ER as needed Please follow-up with a general farmer as soon as possible Med/Other Pt SpecificInfo: Prescription(s) given Scripts Pantoprazole (Protonix) 40 Mg Tab 40 MG PO DAILY for Reflux, #30 TAB 0 Refills Prov: Jeni Kiran DO 06/28/17 Sucralfate Liq (Carafate Liq) 1 Gm/10 Ml Susp 1 GM PO TID for Duodenal ulcer, #900 ML 0 Refills on empty stomach Prov: Jeni Kiran DO 06/28/17 Metoclopramide (Reglan) 5 Mg Tab 5 MG PO QID for Nausea, #20 TAB 0 Refills Prov: Jeni Kiran DO 06/28/17 Disposition: 01 DISCHARGE HOME Condition: Stable Jeni Kiran DO Jun 28, 2017 12:43
[2017-06-28 13:11] LABS: AUTOMATED NEUTROPHIL # 4.4 TH/MM3 (1.8-7.7); BASOPHIL # 0.1 TH/MM3 (0-0.2); BASOPHIL % 0.9 % (0.0-2.0); EOSINOPHIL # 0.1 TH/MM3 (0-0.4); EOSINOPHIL % 1.9 % (0.0-4.0); HEMATOCRIT 44.8 % (39.0-51.0); HEMOGLOBIN 15.1 GM/DL (13.0-17.0); LYMPH % 26.3 % (9.0-44.0); LYMPHOCYTE # 1.8 TH/MM3 (1.0-4.8); MEAN CELL VOLUME 92.8 FL (80.0-100.0); MEAN CORPUSCULAR HEMOGLOBIN 31.4 PG (27.0-34.0); MEAN CORPUSCULAR HGB CONC 33.8 % (32.0-36.0); MONO % 6.8 % (0.0-8.0); MONOCYTE # 0.5 TH/MM3 (0-0.9); NEUT % 64.1 % (16.0-70.0); PLATELET COUNT 171 TH/MM3 (150-450); RED BLOOD COUNT 4.82 MIL/MM3 (4.50-5.90); RED CELL DISTRIBUTION WIDTH 12.1 % (11.6-17.2); WHITE BLOOD COUNT 6.9 TH/MM3 (4.0-11.0)
[2017-06-28] MEDS ORDERED: SUCRALFATE 1 GM/10 ML CUP PO ONE (13:15)
--- NOTE | 2017-06-28 13:19 | RADRPT ---
EXAM DATE/TIME: 06/28/2017 12:42 [facility] COMPARISON: No previous studies available for comparison. INDICATIONS : Mid abdominal pain MEDICAL HISTORY : None. SURGICAL HISTORY : None. ENCOUNTER: Initial ACUITY: 3 days PAIN SCORE: 10/10 LOCATION: middle Abdomen FINDINGS: Supine view of the abdomen was performed. The abdominal bowel gas pattern is normal. No abnormal ma sses, calcifications, or organomegaly is seen. Status post cholecystectomy. Mild degenerative changes and scoliosis of the thoracolumbar spine are noted. CONCLUSION: 1. No bowel obstruction, ileus or perforation. 2. Mild degenerative changes and scoliosis of the thoracolumbar spine. Dg Tim MD on June 28, 2017 at 13:10 Board Certified Radiologist. This report was verified electronically.
[2017-06-28 13:29] LABS: CHLORIDE 103 MEQ/L (98-107); SODIUM (NA) 137 MEQ/L (136-145)
[2017-06-28 13:32] LABS: CALCIUM 8.9 MG/DL (8.5-10.1)
[2017-06-28 13:33] LABS: ALBUMIN 3.8 GM/DL (3.4-5.0); BICARBONATE 26.8 MEQ/L (21.0-32.0); BLOOD UREA NITROGEN 11 MG/DL (7-18); GLUCOSE,RANDOM 98 MG/DL (74-106)
[2017-06-28 13:36] LABS: ALT (GPT) 35 U/L (12-78); AST (GOT) 17 U/L (15-37); CREATININE 0.74 MG/DL (0.60-1.30); GLOMERULAR FILTRATION RATE 113 ML/MIN (>89)
[2017-06-28 13:37] LABS: TOTAL BILIRUBIN ADULT 0.5 MG/DL (0.2-1.0)
[2017-06-28 13:38] LABS: TOTAL PROTEIN 7.5 GM/DL (6.4-8.2)
[2017-06-28 13:39] LABS: ALKALINE PHOSPHATASE 126 U/L (45-117)
[2017-06-28 14:02] VITALS: BP 165/114
--- NOTE | 2017-06-28 14:54 | EKG ---
Date Performed: 06/28/2017 Time Performed: 12:34:14 PTAGE: 46 years EKG: Sinus rhythm NORMAL ECG Compared to prior electrocardiogram, rate has decreased PREVIOUS TRACING : 06/26/2017 12.21 DOCTOR: Keenan Desouza Interpretating Date/Time 06/28/2017 14:53:51
== END 2017-06-28 14:25 | disposition home or self-care (01) ==
LOC: PHED 10:47
DX: K29.70 Gastritis, unspecified, without bleeding (principal); K29.90 Gastroduodenitis, unspecified, without bleeding; K21.9 Gastro-esophageal reflux disease without esophagitis; I11.0 Hypertensive heart disease with heart failure; I50.9 Heart failure, unspecified; J44.9 Chronic obstructive pulmonary disease, unspecified; I42.9 Cardiomyopathy, unspecified; F32.9 Major depressive disorder, single episode, unspecified
CPT/HCPCS: 74018; 80053; 83690; 85025; 93005; 96360; 99285; J7030

== ENCOUNTER 2017-09-11 11:36 | Emergency (ER) | payer SELFPAY ==
[~2017-09-11] VITALS: Ht 182.9 cm; Wt 154.5 kg
[~2017-09-11 11:36] MED LIST changes: -BACT800T5 PO; +CARA1SUS3 PO; +PROT40TA PO; +REGL5TAB PO
[2017-09-11 11:45] VITALS: BP 172/93; PULSE 90; RESP 20; TEMP 97.8; O2SAT 98
[2017-09-11] MEDS ORDERED: SODIUM CHLORIDE 0.9% FLUSH 10 ML FLUSH IVF PRN (12:00)
[2017-09-11] MEDS ORDERED: ONDANSETRON ODT 4 MG TAB PO/SL ONE (12:00)
[2017-09-11] MEDS ORDERED: ACETAMINOPHEN/HYDROcodone 325 MG/5 MG TAB PO ONE (12:00)
[2017-09-11] MEDS ORDERED: SUMAtriptan INJ 6 MG/0.5 ML VIAL SQ PRN (12:00)
[2017-09-11] MEDS ORDERED: cloNIDine HCL 0.1 MG TAB PO ONE (12:00)
--- NOTE | 2017-09-11 12:13 | PD ---
HPI Chief Complaint: Syncope/Near-Syncope Time Seen by Provider: 11:59 Travel History International Travel<30 days: No Contact w/Intl Traveler<30days: No Traveled to known affect area: No History of Present Illness HPI Patient presents with frontal headache. Onset this morning when he awoke. Positive photophobia. Positive aura. Positive nausea without vomiting. History of migraines. Last migraine 10 years ago. Unable to recall treatment at that time. States he got up and showered and had a friend take him to the store. Upon return to the store he got out of the car and states he blacked out and fell. Denies any head trauma. States [facility] was called and when they lifted him he had onset of cervical neck pain. Denies neck pain prior to this. Past medical history for COPD and CHF. Compliant with lisinopril and aspirin. Compliant with medications this morning. Denies any alleviating or aggravating factors. Pain is dull and constant. 10 out of 10. PFSH Past Medical History Hx Anticoagulant Therapy: Yes (asa 81mg) Arthritis: No Asthma: Yes Autoimmune Disease: No Blood Disorders: No Anxiety: No Depression: Yes Heart Rhythm Problems: No Cancer: No Cardiomyopathy: Yes Cardiovascular Problems: Yes High Cholesterol: No Chemotherapy: No Chest Pain: Yes Congestive Heart Failure: Yes COPD: Yes Cerebrovascular Accident: No Diabetes: No Diminished Hearing: No Endocrine: No Gastrointestinal Disorders: No Genitourinary: No Headaches: Yes Hypertension: Yes Immune Disorder: No Implanted Vascular Access Dvce: Yes Musculoskeletal: Yes Neurologic: Yes Psychiatric: Yes Reproductive: No Respiratory: Yes Immunizations Current: Yes Migraines: Yes Radiation Therapy: No Seizures: Yes Sleep Apnea: Yes Thyroid Disease: No PNEUMOCCOCAL Vaccine (Year): 2 ?: Not Past Surgical History Abdominal Surgery: Yes (gallbladder) AICD: No Arteriovenous Shunt: No Body Medical Devices: IMPLANT FOR MIGRAINES none now Cardiac Surgery: No Cholecystectomy: Yes Ear Surgery: No Endocrine Surgery: No Eye Surgery: No Genitourinary Surgery: No Gynecologic Surgery: No Insulin Pump: No Joint Replacement: No Neurologic Surgery: Yes (BRAIN IMPLANT FOR MIGRAINES-HAS BEEN REMOVED) Oral Surgery: No Pacemaker: No Thoracic Surgery: No Other Surgery: Yes (brain, implanted device for mirgaine, removed ) Social History Alcohol Use: No Tobacco Use: No (QUIT 5 YEARS AGO) Substance Use: No Allergies-Medications (Allergen,Severity, Reaction): Coded Allergies: caffeine (Verified Allergy, Severe, RASH, 09/11/17) codeine (Verified Allergy, Severe, Itching, 09/11/17) propoxyphene (Verified Allergy, Severe, ABD. CRAMS, 09/11/17) Reported Meds & Prescriptions Reported Meds & Active Scripts Active Reported Albuterol Neb (Albuterol Sulfate) 2.5 Mg/0.5 Ml Neb 2.5 Mg NEB Q4HR NEB PRN Note: The Albuterol Sulfate Inhalation Solution is concentrated and must be diluted. Read complete instructions carefully before using. Lisinopril 20 Mg Tab 20 Mg PO DAILY Aspirin 81 (Aspirin) 81 Mg Tabdr 81 Mg PO DAILY Review of Systems General / Constitutional: No: Fever Eyes: Positive: Photophobia HENT: Positive: Headaches, Neck Pain Cardiovascular: No: Chest Pain or Discomfort Respiratory: No: Shortness of Breath Gastrointestinal: Positive: Nausea Genitourinary: No: Dysuria Musculoskeletal: No: Pain Skin: No Rash Neurologic: No: Weakness Psychiatric: No: Depression Endocrine: No: Polydipsia Hematologic/Lymphatic: No: Easy Bruising Physical Exam Narrative Initial exam lower extremities without erythema edema or bony deformity good strength, pelvis stable, abdomen nontender nondistended positive bowel sounds no hepatosplenomegaly, upper extremities with good strength without erythema edema or ecchymosis no bony deformity, shoulders intact clavicles intact no bony deformity, examination of the cervical spine reveals midline tenderness with bilateral paraspinous pain [place] collar was left in place. No facial asymmetry, extraocular muscles intact, pupils equal round reactive light and accommodation. With the assistance of personnel,patient was rolled with head stability and removed from backboard. GENERAL: Alert and oriented answers questions appropriately SKIN: Focused skin assessment warm/dry. HEAD: Atraumatic. Normocephalic. EYES: Pupils equal and round. No scleral icterus. No injection or drainage. ENT: No nasal bleeding or discharge. Mucous membranes pink and moist. NECK: Trachea midline. No JVD. CARDIOVASCULAR: Regular rate and rhythm. No murmur appreciated. RESPIRATORY: No accessory muscle use. Clear to auscultation. Breath sounds equal bilaterally. GASTROINTESTINAL: Abdomen soft, non-tender, nondistended. Hepatic and splenic margins not palpable. MUSCULOSKELETAL: No obvious deformities. No clubbing. No cyanosis. No edema. NEUROLOGICAL: Awake and alert. No obvious cranial nerve deficits. Motor grossly within normal limits. Normal speech. PSYCHIATRIC: Appropriate mood and affect; insight and judgment normal. Data Data Last Documented VS Vital Signs Date Time Temp Pulse Resp B/P (MAP) Pulse Ox O2 Delivery O2 Flow Rate FiO2 09/11/17 13:09 83 18 131/76 (94) 97 Room Air 09/11/17 11:45 2.00 09/11/17 11:[address] Brain W/O Iv Contrast(Rout) (09/11/17 11:59) Ondansetron Odt (Zofran Odt) (09/11/17 12:00) Ct Cerv Spine W/O Contrast (09/11/17 11:59) Ecg Monitoring (09/11/17 11:59) Iv Access Insert/Monitor (09/11/17 11:59) Oximetry (09/11/17 11:59) Sodium Chloride 0.9% Flush (Ns Flush) (09/11/17 12:00) Clonidine (Catapres) (09/11/17 12:00) Sumatriptan Inj (Imitrex Inj) (09/11/17 12:00) Acetamin-Hydrocod 325-5 Mg ([place] 5-325 (09/11/17 12:00) MDM Medical Decision Making Medical Screen Exam Complete: Yes Emergency Medical Condition: Yes Differential Diagnosis Intracranial bleed, migraine, CVA, cervical strain, cervical fracture Narrative Course Assessment plan discussed patient bedside. Last [address] 09/11/17 1159 Signed Impressions: CONCLUSION: 1. No acute intracranial abnormality Cervical Spine CT 09/11/17 1159 Signed Impressions: CONCLUSION: 1. No fracture or subluxation. 2. Minimal fluid right mastoid air cells. Patient reports improvement of migraine with persistent neck pain Diagnosis Primary Impression: Migraine Qualified Codes: G43.101 - Migraine with aura, not intractable, with status migrainosus Additional Impressions: Neck pain Syncope Qualified Codes: R55 - Syncope and collapse Additional Instructions: Encouraged follow-up with PCP, return to emergency room with any onset of new symptoms, encourage nonsteroidal anti-inflammatories warm heat gentle stretching strengthening and massage for his neck. Muscle relaxer and pain medication as needed. Med/Other Pt SpecificInfo: Prescription(s) given Scripts Cyclobenzaprine (Flexeril) 10 Mg Tab 10 MG PO TID for Muscle Spasm, #15 TAB 0 Refills Prov: Rudy Grimaldo MD 09/11/17 Hydrocodone-Acetaminophen (Hydrocodone-Acetaminophen) 5-325 mg Tab 1 TAB PO Q6H Y for PAIN, #15 TAB 0 Refills Prov: Rudy Grimaldo MD 09/11/17 Disposition: 01 DISCHARGE HOME Condition: Good Rudy Grimaldo MD Sep 11, 2017 12:13
[2017-09-11 12:24] VITALS: O2SAT 98
--- NOTE | 2017-09-11 13:00 | RADRPT ---
EXAM DATE: 09/11/2017 12:54 PM EDT AGE/SEX: 46 years / Male INDICATIONS: Syncope. Fell and hit head. Head and neck pain. CLINICAL DATA: This is the patient's initial encounter. Patient reports that signs and symptoms have been present for 1 day and indicates a pain score of 6/10. MEDICAL/SURGICAL HISTORY: Hypertension. Anticoagulant therapy. Cholecystectomy. Brain implant for migraines-removed. Orthopedic surgery. RADIATION DOSE: 62.16 CTDI (mGy) COMPARISON: No prior exams available for comparison. TECHNIQUE: CT of the head without contrast. Using automated exposure control and adjustment of the mA and/or kV according to patient size, radiation dose was kept as low as reasonably achievable to ob tain optimal diagnostic quality images. DICOM format image data is available electronically for revi ew and comparison. FINDINGS: Cerebrum: The ventricles are normal for age. No evidence of midline shift, mass lesion, hemorrhage or acute infarction. No extraaxial fluid collections are seen. Posterior Fossa: The cerebellum and brainstem are intact. The 4th ventricle is midline. The cerebe llopontine angle is unremarkable. Extracranial: The visualized portion of the orbits is intact. Skull: The calvaria is intact. No evidence of skull fracture. CONCLUSION: 1. No acute intracranial abnormality Electronically signed by: Ehsan Christina MD 09/11/2017 12:59 PM EDT
--- NOTE | 2017-09-11 13:07 | RADRPT ---
EXAM DATE: 09/11/2017 1:04 PM EDT AGE/SEX: 46 years / Male INDICATIONS: Syncope. Fell and hit head. Head and neck pain. CLINICAL DATA: This is the patient's initial encounter. Patient reports that signs and symptoms have been present for 1 day and indicates a pain score of 7/10. MEDICAL/SURGICAL HISTORY: Hypertension. Anticoagulant therapy. Cholecystectomy. Brain implant for migraines-removed. Orthopedic surgery. RADIATION DOSE: 27.39 CTDI (mGy) COMPARISON: No prior exams available for comparison. TECHNIQUE: Contiguous axial images were obtained using helical multirow detector technique. The vol umetric data was post-processed with multiplanar reconstruction in oblique axial, sagittal, and coron al planes. Using automated exposure control and adjustment of the mA and/or kV according to patient s ize, radiation dose was kept as low as reasonably achievable to obtain optimal diagnostic quality niraj ges. DICOM format image data is available electronically for review and comparison. FINDINGS: Vertebrae: Normal vertebral body height. No compression fracture. Mild degenerative changes C5-C7. M inimal fluid in the right mastoid air cells Alignment: Normal. No subluxation. C2-3: The bony spinal canal is normal in size. No evidence of disc bulge or herniation. The neural foramina are bilaterally patent. C3-4: The bony spinal canal is normal in size. No evidence of disc bulge or herniation. The neural foramina are bilaterally patent. C4-5: The bony spinal canal is normal in size. No evidence of disc bulge or herniation. The neural foramina are bilaterally patent. C5-6: The bony spinal canal is normal in size. No evidence of disc bulge or herniation. The neural foramina are bilaterally patent. C6-7: The bony spinal canal is normal in size. No evidence of disc bulge or herniation. The neural foramina are bilaterally patent. C7-T1: The bony spinal canal is normal in size. No evidence of disc bulge or herniation. The neura l foramina are bilaterally patent. CONCLUSION: 1. No fracture or subluxation. 2. Minimal fluid right mastoid air cells. Electronically signed by: Ehsan Christina MD 09/11/2017 1:06 PM EDT
[2017-09-11 13:09] VITALS: BP 131/76; PULSE 83; RESP 18; O2SAT 97
[2017-09-11] MEDS ORDERED: CYCL10TA PO (13:33)
[2017-09-11] MEDS ORDERED: HYDR-3516 PO (13:33)
[2017-09-11 13:57] VITALS: BP 150/95
[2017-09-15] MEDS ORDERED: NAPR500 PO (13:11)
[2017-09-15] MEDS ORDERED: ROBA750T PO (13:11)
== END 2017-09-11 14:00 | disposition home or self-care (01) ==
LOC: PHED 11:36
DX: G43.101 Migraine with aura, not intractable, with status migrainosus (principal); M54.2 Cervicalgia; R55 Syncope and collapse; J44.9 Chronic obstructive pulmonary disease, unspecified; I11.0 Hypertensive heart disease with heart failure; Z79.82 Long term (current) use of aspirin; Z88.5 Allergy status to narcotic agent; W18.30XA Fall on same level, unspecified, initial encounter; Y92.007 Garden or yard of unspecified non-institutional (private) residence as the place of occurrence of the external cause
CPT/HCPCS: 70450; 72125; 96372; 99283; J3030

== ENCOUNTER 2018-01-03 08:59 | Observation (INO) ==
[2018-01-03] MEDS ORDERED: Clindamycin 900 mg/NS Premix 900 MG/50 ML PIGGYBACK IV.SIG STA (11:35)
[2018-01-03] MEDS ORDERED: Sod Chloride 0.9% Inj 1,000 ML IV.SIG ONE (11:35)
[2018-01-03] MEDS ORDERED: Piperacil/Tazo 4.5 GM Premix 4.5 GM/100 ML BAG IV.SIG STA (11:35)
[2018-01-03] MEDS ORDERED: Vancomycin Inj 2,500 MG in Sodium Chlor 0.9% Inj 500 ML IV.SIG STA (11:35)
[2018-01-03] MEDS ORDERED: Morphine Inj 4 MG/ML Vial IV.PUSH ONE (11:35)
[2018-01-03 12:02] LABS: Chloride 105 meq/L (98-107); Potassium 4.6 meq/L (3.5-5.1); Sodium 138 meq/L (136-145)
[2018-01-03 12:06] LABS: Albumin 3.7 g/dL (3.4-5.0); Anion Gap 7 meq/L (5-15); Blood Urea Nitrogen 14 mg/dL (7-18); Calcium 8.9 mg/dL (8.5-10.1); Carbon Dioxide 26.4 meq/L (21.0-32.0); Glucose,Random 104 mg/dL (74-106); Lipase 176 U/L (73-393)
[2018-01-03 12:07] LABS: Baso # (Auto) 0.2 th/mm3 (0.0-0.2); Baso % (Auto) 2.3 % (0.0-2.0); Eos # (Auto) 0.2 th/mm3 (0.0-0.4); Eos % (Auto) 3.3 % (0.0-4.0); Hematocrit 43.5 % (39.0-51.0); Hemoglobin 14.6 gm/dL (13.0-17.0); Lymph # (Auto) 1.6 th/mm3 (1.0-4.8); Lymph % (Auto) 22.4 % (9.0-44.0); Mean Corpuscular HGB Conc 33.6 % (32.0-36.0); Mean Corpuscular Volume 95.4 fL (80.0-100.0); Mean Platelet Volume 9.8 fL (7.0-11.0); Mono # (Auto) 0.5 th/mm3 (0.0-0.9); Mono % (Auto) 6.9 % (0.0-8.0); Neut # (Auto) 4.4 th/mm3 (1.8-7.7); Neut % (Auto) 65.1 % (16.0-70.0); Platelet Count 223 th/mm3 (150-450); Red Blood Count 4.56 mil/mm3 (4.50-5.90); Red Cell Distribution Width 12.1 % (11.6-17.2); White Blood Count 6.9 th/mm3 (4.0-11.0)
[2018-01-03 12:08] LABS: Prothrombin Time 10.2 sec (9.8-11.6)
[2018-01-03 12:09] LABS: Alanine Aminotransferase 36 U/L (12-78); Aspartate Aminotransferase 19 U/L (15-37); Glomerular Filtration Rate Greater Than 89 mL/min (>89)
[2018-01-03 12:11] LABS: Total Protein 7.7 g/dL (6.4-8.2)
--- NOTE | 2018-01-03 12:11 | XR ---
EXAM DATE: 01/03/2018 11:40 AM EDT AGE/SEX: 47 years / Male INDICATIONS: Pain. No known injury. CLINICAL DATA: This is the patient's initial encounter. Patient reports that signs and symptoms have been present for 1 day and indicates a pain score of 7/10. MEDICAL/SURGICAL HISTORY: None. None. COMPARISON: [facility], CT ABDOMEN & PELVIS W CONTRAST, 12/31/2017. . FINDINGS: Examination of the pelvis demonstrates no evidence of fracture or dislocation. Bony mineralization i s normal. There is no widening of the sacroiliac joints. No foreign body is identified. CONCLUSION: Negative examination. Electronically signed by: Hari Heath MD 01/03/2018 12:10 PM EDT
[2018-01-03 12:12] LABS: Alkaline Phosphatase 110 U/L (45-117)
[2018-01-03] MEDS ORDERED: Vancomycin Inj 2,500 MG in Sodium Chlor 0.9% Inj 500 ML IV.SIG ONE (13:00)
--- NOTE | 2018-01-03 13:13 | CT ---
EXAM DATE: 01/03/2018 12:29 PM EDT AGE/SEX: 47 years / Male INDICATIONS: Follow up left inguinal abscess, worsening despite taking antibiotics. CLINICAL DATA: This is the patient's sequela encounter. Patient reports that signs and symptoms have been present for 3 days and indicates a pain score of 5/10. MEDICAL/SURGICAL HISTORY: Congestive heart failure. Chronic obstructive pulmonary disease. Hy pertension. Cholecystectomy. ORAL CONTRAST: No oral contrast ingested. RADIATION DOSE: 33.64 CTDI (mGy) ; Patient body habitus COMPARISON: [facility], PELVIS AP 1V, 01/03/2018. [facility], CT ABDOMEN & PELVIS W CONTRAST, 12/31/2017. . TECHNIQUE: Multiple contiguous axial images were obtained through the abdomen and pelvis following b olus infusion of 95 ml Omnipaque 350 (iohexol) nonionic water-soluble contrast as a single exam dos e. No oral contrast ingested. Using automated exposure control and adjustment of the mA and/or kV ac cording to patient size, radiation dose was kept as low as reasonably achievable to obtain optimal di agnostic quality images. DICOM format image data is available electronically for review and comparis on. FINDINGS: The patient is status post cholecystectomy. There is mild prominence of the intrahepatic biliary tree . There is focal scarring upper pole left kidney. Adrenals, right kidney, spleen, pancreas unremarkab le. Urinary bladder is unremarkable. There are no signs of bowel obstruction. A few scattered colonic diverticuli are noted. The appendix is normal. Subcentimeter short axis bilateral pelvic sidewall ly mph nodes are present and subcentimeter external iliac nodes. CONCLUSION: 1. No evidence for abscess. Electronically signed by: Hari Heath MD 01/03/2018 1:11 PM EDT
[2018-01-03 13:18] LABS: Bilirubin,Urine Negative (Negative); Clarity,Urine Clear (Clear); Color,Urine Yellow (Yellw/Straw); Glucose,Urine (UA) Negative (Negative); Leukocyte Esterase,Urine Negative (Negative); Nitrite,Urine Negative (Negative); Urobilinogen,Urine 0.2 mg/dL (Less than 2)
[2018-01-03 13:24] LABS: RBC,Urine 0-3 /hpf (0-3); Squamous Epithelial Cell,Urine 0-5 /hpf (0-5)
--- NOTE | 2018-01-03 13:40 | ED ---
HPI General Chief complaint: Skin/Abscess/Foreign Body Stated complaint: Abscess recheck Time Seen by Provider: 01/03/18 11:35 Source: patient Mode of arrival: ambulatory Limitations: no limitations History of Present Illness HPI narrative: Patient is a 47-year-old male, past medical history significant for hypertension, COPD, CHF, who presents with plane of worsening groin infection. He was seen here several days ago for cellulitis to the groin at which time labs and CT were done. He was discharged home with a prescription for Bactrim. He has been taking his medication as prescribed but reports that the infection continues to worsen and spread. He has had chills but no fever. complaint: Reports lesion Onset (ago): day(s) Location: Reports genitals Severity: moderate Quality: Reports aching Pain Consistency: constant Associated symptoms: Reports chills Treatments prior to arrival: Reports antibiotic Related Data Home Medications Medication Instructions Recorded Confirmed aspirin [Aspirin Low Dose] 81 mg PO DAILY 12/18/17 01/03/18 ipratropium-albuterol 3 ml INHALATION BID 12/18/17 01/03/18 lisinopril 20 mg PO DAILY 12/18/17 01/03/18 Previous Rx's Medication Instructions Recorded ibuprofen 600 mg PO Q6H PRN #14 tab 12/31/17 ondansetron [Zofran ODT] 4 mg PO Q6H PRN #7 tab 12/31/17 sulfamethoxazole-trimethoprim 1 tab PO Q12H #14 tab 12/31/17 [Bactrim DS] Allergies Allergy/AdvReac Type Severity Reaction Status Date / Time caffeine Allergy Severe RASH Verified 01/03/18 09:10 codeine Allergy Severe Itching Verified 01/03/18 09:10 propoxyphene Allergy Severe ABD. CRAMS Verified 01/03/18 09:10 Review of Systems ROS: all other systems reviewed are negative [facility] Medical History Medical History CHF (congestive heart failure) (Acute) COPD (chronic obstructive pulmonary disease) (Acute) HTN (hypertension) (Acute) Migraines (Acute) Surgical History Surgical History H/O brain surgery (Acute) Hx of cholecystectomy (Acute) Social History Social History Substance History: No History of Abuse Second Hand Smoke Exposure: No Smoking Status: Former smoker Tobacco Type: Cigarettes How Often Do You Have a Drink Containing Alcohol: Never Recent Travel in [facility] within the Last 8 Weeks: No Recent Out of Country Travel within the Last 8 Weeks: No Immunization History Tetanus Immunization: <5 Years Tetanus Immunization Year if Known: 2014 Exam Narrative Exam Narrative: GENERAL: obese male with intermittent clamminess. SKIN: Focused skin assessment warm. HEAD: Atraumatic. Normocephalic. EYES: Pupils equal and round. No scleral icterus. No injection or drainage. ENT: No nasal bleeding or discharge. Mucous membranes pink and moist. NECK: Trachea midline. No JVD. CARDIOVASCULAR: Regular rate and rhythm. No murmur appreciated. Intact and equal peripheral pulses. RESPIRATORY: No accessory muscle use. Clear to auscultation. Breath sounds equal bilaterally. GASTROINTESTINAL: Abdomen soft, non-tender, nondistended. Hepatic and splenic margins not palpable. : Erythema to the perineum, bilateral upper medial thighs, part of the scrotum. There is some induration but no crepitus/bulla/necrosis. MUSCULOSKELETAL: No obvious deformities. No clubbing. No cyanosis. No edema. NEUROLOGICAL: Awake and alert. No obvious cranial nerve deficits. Motor grossly within normal limits. Normal speech. PSYCHIATRIC: Appropriate mood and affect; insight and judgment normal. Course Initial Documented Vital Signs Temperature 97.6 F 01/03/18 09:07 Pulse Rate 94 H 01/03/18 09:07 Respiratory Rate 18 01/03/18 09:07 Blood Pressure 171/120 H 01/03/18 09:07 Pulse Oximetry 97 01/03/18 09:07 Last Documented Vital Signs Temperature 97.6 F 01/03/18 09:07 Pulse Rate 74 01/03/18 13:03 Respiratory Rate 16 01/03/18 13:03 Blood Pressure 117/75 01/03/18 13:03 Pulse Oximetry 96 01/03/18 13:03 Medical Decision Making [facility] Narrative Medical decision making narrative: Patient is a 47-year-old male who presents with complaint of worsening infection despite taking Bactrim as an outpatient. He is hemodynamically stable and labs are relatively unremarkable. CT does not show any acute findings. He has been admitted to Dr. Ramirez, hospitalist on- call, for further evaluation and management of his cellulitis that failed outpatient treatment. Medical Screen Exam Complete: Yes Emergency Medical Condition: Yes Medical Records Medical records reviewed: Yes I reviewed the patient's medical records. Lab Data Lab results reviewed: Yes I reviewed the patient's lab results. Result diagrams: 01/03/18 11:35 01/03/18 11:35 Lab Results 01/03/18 01/03/18 01/03/18 Range/Units 11:35 11:35 11:35 CBC w Diff Auto diff final WBC 6.9 (4.0-11.0) th/mm3 RBC 4.56 (4.50-5.90) mil/mm3 Hgb 14.6 (13.0-17.0) gm/dL Hct 43.5 (39.0-51.0) % MCV 95.4 (80.0-100.0) fL MCH 32.0 (27.0-34.0) pg MCHC 33.6 (32.0-36.0) % RDW 12.1 (11.6-17.2) % Plt Count 223 (150-450) th/mm3 MPV 9.8 (7.0-11.0) fL Neut % (Auto) 65.1 (16.0-70.0) % Lymph % (Auto) 22.4 (9.0-44.0) % [place] % (Auto) 6.9 (0.0-8.0) % Eos % (Auto) 3.3 (0.0-4.0) % Baso % (Auto) 2.3 H (0.0-2.0) % Neut # (Auto) 4.4 (1.8-7.7) th/mm3 Lymph # (Auto) 1.6 (1.0-4.8) th/mm3 [place] # (Auto) 0.5 (0.0-0.9) th/mm3 Eos # (Auto) 0.2 (0.0-0.4) th/mm3 Baso # (Auto) 0.2 (0.0-0.2) th/mm3 WBC Differential . Differential Comment . PT 10.2 (9.8-11.6) sec INR 1.0 Ratio APTT 27.0 (24.3-30.1) sec Sodium 138 (136-145) meq/L Potassium 4.6 (3.5-5.1) meq/L Chloride 105 (98-107) meq/L Carbon Dioxide 26.4 (21.0-32.0) meq/L Anion Gap 7 (5-15) meq/L BUN 14 (7-18) mg/dL Creatinine 0.81 (0.60-1.30) mg/dL Estimated GFR Greater than 89 (>89) mL/min POC Glucose (68-110) mg/dl Random Glucose 104 (74-106) mg/dL Lactic Acid (0.4-2.0) mmol/L Calcium 8.9 (8.5-10.1) mg/dL Total Bilirubin 0.3 (0.2-1.0) mg/dL AST 19 (15-37) U/L ALT 36 (12-78) U/L Alkaline Phosphatase 110 (45-117) U/L Total Protein 7.7 (6.4-8.2) g/dL Albumin 3.7 (3.4-5.0) g/dL Lipase 176 (73-393) U/L Ur Collection Type Urine Color (Yellw/Straw) Urine Clarity (Clear) Urine pH (5.0-8.5) Ur Specific [place] (1.002-1.035) Urine Protein (Neg-Trace) mg/dL Urine Glucose (UA) (Negative) mg/dL Urine Ketones (Negative) mg/dL Urine Occult Blood (Negative) Urine Nitrate (Negative) Urine Bilirubin (Negative) Urine Urobilinogen (Less than 2) mg/dL Ur Leukocyte Esterase (Negative) Urine RBC (0-3) /hpf Ur Squamous Epith Cells (0-5) /hpf Micro UA Comment Ur Microscopic Review Urine Culture Comments 01/03/18 01/03/18 01/03/18 Range/Units 11:35 12:02 13:07 CBC w Diff WBC (4.0-11.0) th/mm3 RBC (4.50-5.90) mil/mm3 Hgb (13.0-17.0) gm/dL Hct (39.0-51.0) % MCV (80.0-100.0) fL MCH (27.0-34.0) pg MCHC (32.0-36.0) % RDW (11.6-17.2) % Plt Count (150-450) th/mm3 MPV (7.0-11.0) fL Neut % (Auto) (16.0-70.0) % Lymph % (Auto) (9.0-44.0) % [place] % (Auto) (0.0-8.0) % Eos % (Auto) (0.0-4.0) % Baso % (Auto) (0.0-2.0) % Neut # (Auto) (1.8-7.7) th/mm3 Lymph # (Auto) (1.0-4.8) th/mm3 [place] # (Auto) (0.0-0.9) th/mm3 Eos # (Auto) (0.0-0.4) th/mm3 Baso # (Auto) (0.0-0.2) th/mm3 WBC Differential Differential Comment PT (9.8-11.6) sec INR Ratio APTT (24.3-30.1) sec Sodium (136-145) meq/L Potassium (3.5-5.1) meq/L Chloride (98-107) meq/L Carbon Dioxide (21.0-32.0) meq/L Anion Gap (5-15) meq/L BUN (7-18) mg/dL Creatinine (0.60-1.30) mg/dL Estimated GFR (>89) mL/min POC Glucose 103 (68-110) mg/dl Random Glucose (74-106) mg/dL Lactic Acid 1.1 (0.4-2.0) mmol/L Calcium (8.5-10.1) mg/dL Total Bilirubin (0.2-1.0) mg/dL AST (15-37) U/L ALT (12-78) U/L Alkaline Phosphatase (45-117) U/L Total Protein (6.4-8.2) g/dL Albumin (3.4-5.0) g/dL Lipase (73-393) U/L Ur Collection Type Clean catch Urine Color Yellow (Yellw/Straw) Urine Clarity Clear (Clear) Urine pH 6.0 (5.0-8.5) Ur Specific [place] 1.020 (1.002-1.035) Urine Protein Negative (Neg-Trace) mg/dL Urine Glucose (UA) Negative (Negative) mg/dL Urine Ketones Negative (Negative) mg/dL Urine Occult Blood Negative (Negative) Urine Nitrate Negative (Negative) Urine Bilirubin Negative (Negative) Urine Urobilinogen 0.2 (Less than 2) mg/dL Ur Leukocyte Esterase Negative (Negative) Urine RBC 0-3 (0-3) /hpf Ur Squamous Epith Cells 0-5 (0-5) /hpf Micro UA Comment Culture not ind Ur Microscopic Review Microscopic reviewed Urine Culture Comments Culture not ind Imaging Data Attestation: I personally reviewed and interpreted this imaging study as follows : Radiologist's impression: Abdomen/Pelvis CT 01/03/18 11:35 CONCLUSION: 1. No evidence for abscess. Pelvis X-Ray 01/03/18 11:40 CONCLUSION: Negative examination. Discharge Plan Discharge Disposition Patient Disposition: 30 Still Patient Discharge Condition Condition: Stable Discharge Details Diagnosis: Cellulitis Physicians Team ED Provider: Mary Bloom Primary Care Provider: Primary Care Melina Joseph Attending Provider: Ehsan Ramirez Discharge Interventions Interventions: Vital Signs Last Done: 01/03/18 13:03 Status ED Status: Admitted Patient
--- NOTE | 2018-01-03 17:25 | P.HP ---
History of Present Illness Primary Care Physician: No Primary Care Physician Chief Complaint: Scrotum pain History of Present Illness: 47-year-old male with known history of hypertension, congestive heart failure, chronic affective pulmonary disease, history of migraines who returned to the hospital for evaluation of scrotal abscess, cellulitis. Patient states that he came to emergency department on Wednesday and was treated with Bactrim. Patient states that he feels if he did not get any better so he came back to the hospital for evaluation. Patient was evaluated by emergency room physician and she recommended the patient be admitted failing outpatient management. Patient did have workup done which there is no signs of any sepsis, CT scan and pelvis x -ray were performed which did not indicate any acute abnormality. Patient states that he is still having significant amount of pain radiating up into his left groin. Patient indicated that he may have noticed some blood in the toilet after he had a bowel movement. He denies any fever, chills, nausea, vomiting, shortness of breath, dyspnea. - Diagnosis (1) Scrotal abscess Inpatient Certification: I certify that the inpatient services were ordered in accordance with Medicare regulations governing the order. This includes certification that hospital inpatient services are reasonable and necessary and in the case of services not specified as inpatient-only under 42 CFR 419.22(n), that they are appropriately provided as inpatient services in accordance to with the 2-midnight benchmark under 43 CFR 412.3(e) Review of Systems All other systems reviewed negative except as stated in HPI Genitourinary: Reports testicle pain PMFSH - History History Provided By: Patient - Medical History Medical History: Medical History (Last Reviewed 01/03/18 @ 14:31 by Mary Bloom MD) CHF (congestive heart failure) COPD (chronic obstructive pulmonary disease) HTN (hypertension) Migraines - Surgical History Surgical History: Surgical History (Last Reviewed 01/03/18 @ 14:31 by Mary Bloom MD) H/O brain surgery Hx of cholecystectomy - Family History Family History: Family History (Last Updated 01/03/18 @ 17:14 by DEANNA Lopez) Other No pertinent family history - Tobacco History Second Hand Smoke Exposure: No Tobacco Use In Past 30 Days: No Smoking Status: Never smoker Tobacco Type: Cigarettes - Alcohol History How Often Do You Have a Drink Containing Alcohol: Never - Substance Use History Substance History: No History of Abuse - Travel History Recent Travel in the [place] Within the Last 8 Weeks: No Recent Travel Out of the Country Within the Last 8 Weeks: No - Immunization History Tetanus Immunization: <5 Years Tetanus Immunization Year if Known: 2014 Hx Influenza Vaccine This Season: No Medications and Allergies Active Medications: Active Medications Sodium Chloride (Ns Flush) 2 ml IV.FLUSH PRN PRN PRN Reason: FLUSH AFTER USING IV ACCESS Allergies Allergy/AdvReac Type Severity Reaction Status Date / Time caffeine Allergy Severe RASH Verified 01/03/18 09:10 codeine Allergy Severe Itching Verified 01/03/18 09:10 propoxyphene Allergy Severe ABD. CRAMS Verified 01/03/18 09:10 Home Medications Medication Instructions Recorded Confirmed Type aspirin [Aspirin Low Dose] 81 mg PO DAILY 12/18/17 01/03/18 History ipratropium-albuterol 3 ml INHALATION BID 12/18/17 01/03/18 History lisinopril 20 mg PO DAILY 12/18/17 01/03/18 History Exam Vital signs: Vital Signs 01/03/18 09:07 01/03/18 09:14 01/03/18 12:00 Temperature 97.6 F Pulse Rate 94 H Respiratory Rate 18 Blood Pressure 171/120 H 118/91 H Pulse Oximetry 97 96 01/03/18 12:36 01/03/18 13:03 01/03/18 15:14 Temperature Pulse Rate 77 74 70 Respiratory Rate 18 16 16 Blood Pressure 123/71 117/75 109/63 Pulse Oximetry 96 96 97 Intake & Output 01/02/18 01/03/18 01/03/18 18:59 06:59 18:59 Intake Total 1675 / 1675 Balance 1675 / 1675 Weight 165.6 kg Intake: IV 1675 / 1675 Cleocin 900 mg/NS Premix 900 mg 50 / 50 In 50 ml @ 100 mls/hr IV.SIG STAT STA Rx#:[id number] Zosyn 4.5 GM Premix 4.5 gm In 100 / 100 100 ml @ 200 mls/hr IV.SIG STAT STA Rx#:[id number] NS Inj 1,000 ML @ Wide Open IV. 1000 / 1000 SIG BOLUS ONE Rx#:[id number] Vancomycin Inj 2,500 MG In NS 525 / 525 Inj 500 ML @ 250 mls/hr IV.SIG ONCE ONE Rx#:[id number] Other: # Voids 3 Weight On Admission 165.6 kg Narrative: GENERAL: Well-developed, obese with BMI 49.5, in no acute distress. alert and orientated HEENT: Head is normocephalic without any lesions or masses noted. Facial features are symmetric. Eyes: Pupils equal round reactive to light. Extraocular muscles are intact. Conjunctivae were clear. Oropharyngeal: Pharynx without any erythema edema. Tongue is midline without deviation. Buccal mucosa is moist without any masses or lesions NECK: Supple without any masses. Trachea midline no deviation. No JVD, no bruits are appreciated CARDIAC: Regular rhythm, regular rate. S1/S2 are heard. No murmurs gallops or rubs. LUNGS: Clear to auscultation bilaterally. No wheeze, rhonchi or rales. No use of accessory muscles on inspiration or expiration. ABDOMEN: Soft, nontender. Nondistended. Bowel sounds heard in all 4 quadrants. No organomegaly or masses. Negative rebound, negative guarding EXTREMITIES: No edema, pulses are equal bilaterally. No cyanosis or clubbing NEUROLOGY: Mood and affect appear appropriate. Cranial nerves II through XII grossly intact. Muscle strength 5/5 in upper and lower extremities bilaterally. Deep tendon reflexes are 2+ in upper and lower extremities bilaterally. GENITOURINARY: Patient does appear to have some mild erythematous rash in his bilateral inguinal area. No open wounds were appreciated. On the underside of his scrotum there appears to be a granulating area measuring approximately 1.5 cm with center fluctuance. No exudates were expressed Results - Labs CBC & Chem 7: 01/03/18 11:35 01/03/18 11:35 Labs: Laboratory Results - last 24 hr 01/03/18 01/03/18 01/03/18 11:35 11:35 11:35 CBC w Diff Auto diff final WBC 6.9 RBC 4.56 Hgb 14.6 Hct 43.5 MCV 95.4 MCH 32.0 MCHC 33.6 RDW 12.1 Plt Count 223 MPV 9.8 Neut % (Auto) 65.1 Lymph % (Auto) 22.4 [place] % (Auto) 6.9 Eos % (Auto) 3.3 Baso % (Auto) 2.3 H Neut # (Auto) 4.4 Lymph # (Auto) 1.6 [place] # (Auto) 0.5 Eos # (Auto) 0.2 Baso # (Auto) 0.2 WBC Differential . Differential Comment . PT 10.2 INR 1.0 APTT 27.0 Sodium 138 Potassium 4.6 Chloride 105 Carbon Dioxide 26.4 Anion Gap 7 BUN 14 Creatinine 0.81 Estimated GFR Greater than 89 POC Glucose Random Glucose 104 Lactic Acid Calcium 8.9 Total Bilirubin 0.3 AST 19 ALT 36 Alkaline Phosphatase 110 Total Protein 7.7 Albumin 3.7 Lipase 176 Ur Collection Type Urine Color Urine Clarity Urine pH Ur Specific [place] Urine Protein Urine Glucose (UA) Urine Ketones Urine Occult Blood Urine Nitrate Urine Bilirubin Urine Urobilinogen Ur Leukocyte Esterase Urine RBC Ur Squamous Epith Cells Micro UA Comment Ur Microscopic Review Urine Culture Comments 01/03/18 01/03/18 01/03/18 11:35 12:02 13:07 CBC w Diff WBC RBC Hgb Hct MCV MCH MCHC RDW Plt Count MPV Neut % (Auto) Lymph % (Auto) [place] % (Auto) Eos % (Auto) Baso % (Auto) Neut # (Auto) Lymph # (Auto) [place] # (Auto) Eos # (Auto) Baso # (Auto) WBC Differential Differential Comment PT INR APTT Sodium Potassium Chloride Carbon Dioxide Anion Gap BUN Creatinine Estimated GFR POC Glucose 103 Random Glucose Lactic Acid 1.1 Calcium Total Bilirubin AST ALT Alkaline Phosphatase Total Protein Albumin Lipase Ur Collection Type Clean catch Urine Color Yellow Urine Clarity Clear Urine pH 6.0 Ur Specific [place] 1.020 Urine Protein Negative Urine Glucose (UA) Negative Urine Ketones Negative Urine Occult Blood Negative Urine Nitrate Negative Urine Bilirubin Negative Urine Urobilinogen 0.2 Ur Leukocyte Esterase Negative Urine RBC 0-3 Ur Squamous Epith Cells 0-5 Micro UA Comment Culture not ind Ur Microscopic Review Microscopic reviewed Urine Culture Comments Culture not ind - Imaging Impressions Abdomen/Pelvis CT 01/03/18 11:35 CONCLUSION: 1. No evidence for abscess. Pelvis X-Ray 01/03/18 11:40 CONCLUSION: Negative examination. Caprini VTE Risk Assessment Caprini VTE Risk Assessment: No/Low Risk (score <= 1) Caprini Risk Assessment Model: Point Value = 1 Point Value = 2 Point Value = 3 Point Value = 5 Age 41-60 Minor surgery BMI > 25 kg/m2 Swollen legs Varicose veins or History of unexplained or recurrent spontaneous Oral contraceptives or hormone replacement Sepsis (< 1 month) Serious lung disease, including pneumonia (< 1 month) Abnormal pulmonary function Acute myocardial infarction Congestive heart failure (< 1 month) History of inflammatory bowel disease Medical patient at bed rest Age 61-74 Arthroscopic surgery Major open surgery (> 45 min) Laparoscopic surgery (> 45 min) Malignancy Confined to bed (> 72 hours) Immobilizing plaster cast Central venous access Age >= 75 History of VTE Family history of VTE Factor V Leiden Prothrombin [id number] Lupus anticoagulant Anticardiolipin antibodies Elevated serum homocysteine Heparin-induced thrombocytopenia Other congenital or acquired thrombophilia Stroke (< 1 month) Elective arthroplasty Hip, pelvis, or leg fracture Acute spinal cord injury (< 1 month) Prophylaxis Regimen: Total Risk Factor Score Risk Level Prophylaxis Regimen 0-1 Low Early ambulation 2 Moderate Order ONE of the following: *Sequential Compression Device (SCD) *Heparin 5000 units SQ BID 3-4 Higher Order ONE of the following medications: *Heparin 5000 units SQ TID *Enoxaparin/Lovenox 40 mg SQ daily (WT < 150 kg, CrCl > 30 mL/min) *Enoxaparin/Lovenox 30 mg SQ daily (WT < 150 kg, CrCl > 10-29 mL/min) *Enoxaparin/Lovenox 30 mg SQ BID (WT < 150 kg, CrCl > 30 mL/min) AND/OR *Sequential Compression Device (SCD) 5 or more Highest Order ONE of the following medications: *Heparin 5000 units SQ TID (Preferred with Epidurals) *Enoxaparin/Lovenox 40 mg SQ daily (WT < 150 kg, CrCl > 30 mL/min) *Enoxaparin/Lovenox 30 mg SQ daily (WT < 150 kg, CrCl > 10-29 mL/min) *Enoxaparin/Lovenox 30 mg SQ BID (WT < 150 kg, CrCl > 30 mL/min) AND *Sequential Compression Device (SCD) Assessment and Plan - Assessment (1) Scrotal abscess Code(s): N49.2 - Inflammatory disorders of scrotum Status: Acute - Plan Scrotal cellulitis -Patient has already been treated with Bactrim in outpatient setting for 2 days. Patient not feels if he is improving so he came back to emergency department -Patient was given vancomycin, Zosyn, clindamycin in the emergency department -We will continue vancomycin and Zosyn -Continue monitor for improvement -Obtain scrotal ultrasound to evaluate for any abscess Congestive heart failure, hypertension -Continue home medications Chronic obstructive pulmonary disease -Continue O2 sat mentation maintain O2 sat greater than 92% -Duo nebs as needed DVT prevention -Subcutaneous heparin
[2018-01-03] MEDS ORDERED: Vancomycin Consult Pharmacy 1 EACH OTHER SCH (17:30)
[2018-01-03] MEDS: Heparin - SQ 10,000 UNITS/ML Vial SQ SCH (17:59)
[2018-01-03] MEDS ORDERED: Bisacodyl 10 MG Supp RECTAL PRN (18:00)
[2018-01-03] MEDS ORDERED: Acetaminophen 325 MG Tablet PO PRN (18:00)
[2018-01-03] MEDS: Piperacil/Tazo 3.375 GM Premix 50 ML IV.SIG SCH ×2 (18:27→23:39)
[2018-01-03] MEDS: Senna/Docusate Sodium 8.6/50 MG Tablet PO SCH (22:32)
[2018-01-03] MEDS: Temazepam 15 MG Capsule PO PRN (22:32)
[2018-01-04] MEDS: Vancomycin Inj 1,750 MG in Sodium Chlor 0.9% Inj 500 ML IV.SIG SCH ×2 (02:35→13:03)
[2018-01-04] MEDS: Piperacil/Tazo 3.375 GM Premix 50 ML IV.SIG SCH ×3 (05:26→17:11)
[2018-01-04] MEDS: Heparin - SQ 10,000 UNITS/ML Vial SQ SCH ×2 (05:33→17:11)
[2018-01-04 06:31] LABS: Baso # (Auto) 0.1 th/mm3 (0.0-0.2); Baso % (Auto) 1.1 % (0.0-2.0); Eos # (Auto) 0.2 th/mm3 (0.0-0.4); Eos % (Auto) 4.2 % (0.0-4.0); Hematocrit 43.2 % (39.0-51.0); Hemoglobin 14.9 gm/dL (13.0-17.0); Lymph # (Auto) 1.7 th/mm3 (1.0-4.8); Lymph % (Auto) 31.2 % (9.0-44.0); Mean Corpuscular HGB Conc 34.4 % (32.0-36.0); Mean Corpuscular Hemoglobin 33.1 pg (27.0-34.0); Mean Corpuscular Volume 96.3 fL (80.0-100.0); Mean Platelet Volume 9.8 fL (7.0-11.0); Mono # (Auto) 0.5 th/mm3 (0.0-0.9); Mono % (Auto) 9.1 % (0.0-8.0); Neut # (Auto) 2.9 th/mm3 (1.8-7.7); Neut % (Auto) 54.4 % (16.0-70.0); Platelet Count 196 th/mm3 (150-450); Red Blood Count 4.49 mil/mm3 (4.50-5.90); Red Cell Distribution Width 12.2 % (11.6-17.2); White Blood Count 5.4 th/mm3 (4.0-11.0)
[2018-01-04 06:39] LABS: Chloride 103 meq/L (98-107); Potassium 4.2 meq/L (3.5-5.1); Sodium 138 meq/L (136-145)
[2018-01-04 06:41] LABS: Calcium 8.4 mg/dL (8.5-10.1)
[2018-01-04 06:42] LABS: Anion Gap 6 meq/L (5-15); Blood Urea Nitrogen 11 mg/dL (7-18); Carbon Dioxide 28.7 meq/L (21.0-32.0); Glucose,Random 98 mg/dL (74-106)
[2018-01-04 06:45] LABS: Glomerular Filtration Rate Greater Than 89 mL/min (>89)
[2018-01-04] MEDS: Senna/Docusate Sodium 8.6/50 MG Tablet PO SCH ×2 (08:09→20:02)
--- NOTE | 2018-01-04 09:21 | US ---
EXAM DATE: 01/04/2018 12:00 AM EDT AGE/SEX: 47 years / Male INDICATIONS: Scrotal abscess. CLINICAL DATA: This is the patient's initial encounter. Patient reports that signs and symptoms have been present for 4 - 6 days and indicates a pain score of 3/10. MEDICAL/SURGICAL HISTORY: Congestive heart failure. Chronic obstructive pulmonary disease. Hy pertension. Migraines. Cholecystectomy. Brain surgery. COMPARISON: No prior exams available for comparison. FINDINGS: There is moderate scrotal skin thickening. A small elongated fluid echogenicity collection is present in the inferior scrotum measuring 2.5 x 0.6 x 0.7 cm. There are enlarged left groin lymph nodes. CONCLUSION: Small scrotal abscess. Electronically signed by: Dickson Cunha MD 01/04/2018 9:20 AM EDT
--- NOTE | 2018-01-04 10:51 | P.PNIM ---
Subjective Interval history: Follow-up scrotal abscess. Patient seen and examined, lying in bed with complaints of continued pain. Ultram ineffective. No leukocytosis, no fever. No signs of infection. Ultrasound performed and reviewed showing small scrotal abscess. Call in to urology, awaiting response. May need drainage. Attempt better control of pain. Physical Exam Vital signs: Vital Signs 01/03/18 12:00 01/03/18 12:36 01/03/18 13:03 Temperature Pulse Rate 77 74 Respiratory Rate 18 16 Blood Pressure 123/71 117/75 Pulse Oximetry 96 96 96 01/03/18 15:14 01/03/18 19:05 01/03/18 20:00 Temperature 96 F L Pulse Rate 70 62 Respiratory Rate 16 20 20 Blood Pressure 109/63 115/72 Pulse Oximetry 97 98 01/04/18 00:00 01/04/18 02:39 01/04/18 09:44 Temperature 96.7 F L 96.8 F L Pulse Rate 69 63 Respiratory Rate 20 18 16 Blood Pressure 112/76 131/76 Pulse Oximetry 97 96 Intake & Output 01/03/18 01/04/18 01/04/18 18:59 06:59 18:59 Intake Total 1675 / 1675 2267.5 / 2267.5 Output Total 1700 / 1700 Balance 1675 / 1675 567.5 / 567.5 Weight 165.6 kg 165.2 kg Intake: IV 1675 / 1675 667.5 / 667.5 Cleocin 900 mg/NS Premix 900 mg 50 / 50 In 50 ml @ 100 mls/hr IV.SIG STAT STA Rx#:[id number] Zosyn 3.375 GM Premix 50 ML @ 150 / 150 100 mls/hr IV.SIG Q6H MARCELA Rx#: [id number] Zosyn 4.5 GM Premix 4.5 gm In 100 / 100 100 ml @ 200 mls/hr IV.SIG STAT STA Rx#:[id number] NS Inj 1,000 ML @ Wide Open IV. 1000 / 1000 SIG BOLUS ONE Rx#:[id number] Vancomycin Inj 1,750 MG In NS 525 / 525 517.5 / 517.5 Inj 500 ML @ 250 mls/hr IV.SIG Q12H MARCELA Rx#:[id number] Oral 1600 / 1600 Output: Urine 1700 / 1700 Other: # Voids 3 Date of Last Bowel Movement 01/03/18 Weight On Admission 165.6 kg Narrative: GENERAL: Well-developed, obese with BMI 49.5, in no acute distress. alert and orientated HEENT: Head is normocephalic without any lesions or masses noted. Facial features are symmetric. Eyes: Pupils equal round reactive to light. Extraocular muscles are intact. Conjunctivae were clear. Oropharyngeal: Pharynx without any erythema edema. Tongue is midline without deviation. Buccal mucosa is moist without any masses or lesions NECK: Supple without any masses. Trachea midline no deviation. No JVD, no bruits are appreciated CARDIAC: Regular rhythm, regular rate. S1/S2 are heard. No murmurs gallops or rubs. LUNGS: Clear to auscultation bilaterally. No wheeze, rhonchi or rales. No use of accessory muscles on inspiration or expiration. ABDOMEN: Soft, nontender. Nondistended. Bowel sounds heard in all 4 quadrants. No organomegaly or masses. Negative rebound, negative guarding EXTREMITIES: No edema, pulses are equal bilaterally. No cyanosis or clubbing NEUROLOGY: Mood and affect appear appropriate. Cranial nerves II through XII grossly intact. Muscle strength 5/5 in upper and lower extremities bilaterally. Deep tendon reflexes are 2+ in upper and lower extremities bilaterally. GENITOURINARY: Erythema has improved in bilateral inguinal area. No open wounds. Underside of scrotum with granulating area, no fluctuance no exudates. Pain to palpation. Results - Labs CBC & Chem 7: 01/04/18 06:10 01/04/18 06:10 Laboratory Results - last 24 hr 01/03/18 01/03/18 01/03/18 11:35 11:35 11:35 CBC w Diff Auto diff final WBC 6.9 RBC 4.56 Hgb 14.6 Hct 43.5 MCV 95.4 MCH 32.0 MCHC 33.6 RDW 12.1 Plt Count 223 MPV 9.8 Neut % (Auto) 65.1 Lymph % (Auto) 22.4 [place] % (Auto) 6.9 Eos % (Auto) 3.3 Baso % (Auto) 2.3 H Neut # (Auto) 4.4 Lymph # (Auto) 1.6 [place] # (Auto) 0.5 Eos # (Auto) 0.2 Baso # (Auto) 0.2 WBC Differential . Differential Comment . PT 10.2 INR 1.0 APTT 27.0 Sodium 138 Potassium 4.6 Chloride 105 Carbon Dioxide 26.4 Anion Gap 7 BUN 14 Creatinine 0.81 Estimated GFR Greater than 89 POC Glucose Random Glucose 104 Lactic Acid Calcium 8.9 Total Bilirubin 0.3 AST 19 ALT 36 Alkaline Phosphatase 110 Total Protein 7.7 Albumin 3.7 Lipase 176 Ur Collection Type Urine Color Urine Clarity Urine pH Ur Specific [place] Urine Protein Urine Glucose (UA) Urine Ketones Urine Occult Blood Urine Nitrate Urine Bilirubin Urine Urobilinogen Ur Leukocyte Esterase Urine RBC Ur Squamous Epith Cells Micro UA Comment Ur Microscopic Review Urine Culture Comments 01/03/18 01/03/18 01/03/18 11:35 12:02 13:07 CBC w Diff WBC RBC Hgb Hct MCV MCH MCHC RDW Plt Count MPV Neut % (Auto) Lymph % (Auto) [place] % (Auto) Eos % (Auto) Baso % (Auto) Neut # (Auto) Lymph # (Auto) [place] # (Auto) Eos # (Auto) Baso # (Auto) WBC Differential Differential Comment PT INR APTT Sodium Potassium Chloride Carbon Dioxide Anion Gap BUN Creatinine Estimated GFR POC Glucose 103 Random Glucose Lactic Acid 1.1 Calcium Total Bilirubin AST ALT Alkaline Phosphatase Total Protein Albumin Lipase Ur Collection Type Clean catch Urine Color Yellow Urine Clarity Clear Urine pH 6.0 Ur Specific [place] 1.020 Urine Protein Negative Urine Glucose (UA) Negative Urine Ketones Negative Urine Occult Blood Negative Urine Nitrate Negative Urine Bilirubin Negative Urine Urobilinogen 0.2 Ur Leukocyte Esterase Negative Urine RBC 0-3 Ur Squamous Epith Cells 0-5 Micro UA Comment Culture not ind Ur Microscopic Review Microscopic reviewed Urine Culture Comments Culture not ind 01/04/18 01/04/18 06:10 06:10 CBC w Diff Auto diff final WBC 5.4 RBC 4.49 L Hgb 14.9 Hct 43.2 MCV 96.3 MCH 33.1 MCHC 34.4 RDW 12.2 Plt Count 196 MPV 9.8 Neut % (Auto) 54.4 Lymph % (Auto) 31.2 [place] % (Auto) 9.1 H Eos % (Auto) 4.2 H Baso % (Auto) 1.1 Neut # (Auto) 2.9 Lymph # (Auto) 1.7 [place] # (Auto) 0.5 Eos # (Auto) 0.2 Baso # (Auto) 0.1 WBC Differential . Differential Comment . PT INR APTT Sodium 138 Potassium 4.2 Chloride 103 Carbon Dioxide 28.7 Anion Gap 6 BUN 11 Creatinine 0.79 Estimated GFR Greater than 89 POC Glucose Random Glucose 98 Lactic Acid Calcium 8.4 L Total Bilirubin AST ALT Alkaline Phosphatase Total Protein Albumin Lipase Ur Collection Type Urine Color Urine Clarity Urine pH Ur Specific [place] Urine Protein Urine Glucose (UA) Urine Ketones Urine Occult Blood Urine Nitrate Urine Bilirubin Urine Urobilinogen Ur Leukocyte Esterase Urine RBC Ur Squamous Epith Cells Micro UA Comment Ur Microscopic Review Urine Culture Comments - Imaging Impressions Abdomen/Pelvis CT 01/03/18 11:35 CONCLUSION: 1. No evidence for abscess. Pelvis X-Ray 01/03/18 11:40 CONCLUSION: Negative examination. Soft Tissue Ultrasound 01/04/18 00:00 CONCLUSION: Small scrotal abscess. Assessment and Plan - Assessment (1) Scrotal abscess Code(s): N49.2 - Inflammatory disorders of scrotum Status: Acute - Plan This is a 47-year-old male patient with: Scrotal cyst/cellulitis -Patient has already been treated with Bactrim in outpatient setting for 2 days. Patient not feels if he is improving so he came back to emergency department. -Patient was given vancomycin, Zosyn, clindamycin in the emergency department. -Will continue vancomycin and Zosyn. Has improved overnight. -Continue monitor for improvement. -Scrotal ultrasound showing small scrotal abscess. Call placed to urology, waiting for reply. May need drainage. -Patient complains of uncontrolled pain. Change Ultram to [place]. Congestive heart failure, hypertension -Continue home medications Chronic obstructive pulmonary disease -Continue O2 sat mentation maintain O2 sat greater than 92% -Duo nebs as needed DVT prevention -Subcutaneous heparin Discharge Planning: Awaiting urology input. Need drainage versus outpatient follow-up.
--- NOTE | 2018-01-04 15:22 | P.CONURO ---
History of Present Illness Service: Urology Consult date: 01/04/18 Requesting Physician: Moon Carvajal Reason for Consult: Small scrotal abscess Primary Care Provider: No Primary Care Physician Chief Complaint: Scrotum pain History of Present Illness: 47-year-old male with known history of hypertension, congestive heart failure, chronic affective pulmonary disease, history of migraines who returned to the hospital for evaluation of scrotal abscess, cellulitis. Patient states that he came to emergency department on Wednesday last week due to a scrotal / perineal pain and swelling and was discharged with PO with Bactrim. Patient states that he feels he did not get any better but slightly worse, so he came back to the hospital for evaluation. He has no f/c/n/v, no voiding issues, no hematuria. CT scan and pelvis x-ray were performed which did not indicate any acute abnormality. Patient states that he has 7-8/10 scroto-perineal pain radiating up into his left groin. Ultram is not controlling pain well. He is on IV vanco and zosyn. At the time of my visit pt states that pain is better. no fever. White count is normal. I offered him to drain it under local lidocaine, pt is scared and states that feels a little better and wants to continue current management with IV antbx and avoid any surgical intervention Review of Systems All other systems reviewed negative except as stated in HPI PMFSH - History History Provided By: Patient - Medical History Medical History: Medical History (Last Reviewed 01/03/18 @ 14:31 by Mary Bloom MD) CHF (congestive heart failure) COPD (chronic obstructive pulmonary disease) HTN (hypertension) Migraines - Surgical History Surgical History: Surgical History (Last Reviewed 01/03/18 @ 14:31 by Mary Bloom MD) H/O brain surgery Hx of cholecystectomy - Family History Family History: Family History (Last Updated 01/03/18 @ 17:14 by DEANNA Lopez) Other No pertinent family history - Tobacco History Second Hand Smoke Exposure: No Tobacco Use In Past 30 Days: No Smoking Status: Never smoker Tobacco Type: Cigarettes - Alcohol History How Often Do You Have a Drink Containing Alcohol: Never - Substance Use History Substance History: No History of Abuse - Travel History Recent Travel in the [place] Within the Last 8 Weeks: No Recent Travel Out of the Country Within the Last 8 Weeks: No - Immunization History Tetanus Immunization: <5 Years Tetanus Immunization Year if Known: 2014 Hx Influenza Vaccine This Season: No Medications and Allergies Active Medications: Active Medications Acetaminophen (Tylenol) 650 mg PO Q4H PRN PRN Reason: Temp > 100.4, pain 1-5 Hydrocodone Bitart/Acetaminophen (Amigo 5/325) 1 tab PO Q4H PRN PRN Reason: PAIN SCALE 1 TO 5 Hydrocodone Bitart/Acetaminophen (Amigo 10/325) 1 tab PO Q4H PRN PRN Reason: PAIN SCALE 6 TO 10 Last Admin: 01/04/18 11:24 Dose: 1 tab Al Hydroxide/Mg Hydroxide (Milk Of Magnesia Liq) 30 ml PO Q12H PRN PRN Reason: Mild Constipation Albuterol (Duoneb Neb (Prn)) 1 ampul NEB Q2HR NEB PRN PRN Reason: SHORTNESS OF BREATH/WHEEZING Bisacodyl (Dulcolax Supp) 10 mg RECTAL DAILY PRN PRN Reason: SEVERE CONSITIPATION Heparin Sodium (Porcine) (Heparin Inj) 5,000 units SQ Q12H PENDING SALE TO [facility] Last Admin: 01/04/18 05:33 Dose: 5,000 units Pharmacy Profile Note (Vancomycin Consult Pharmacy) 0 mls @ 0 mls/hr OTHER UNSCH PENDING SALE TO [facility] Piperacillin/Tazobactam/Dextrose (Zosyn 3.375 Gm Premix) 50 mls @ 100 mls/hr IV.SIG Q6H PENDING SALE TO [facility] Last Infusion: 01/04/18 13:12 Dose: Infused Vancomycin HCl 1,750 mg/ (Sodium Chloride) 517.5 mls @ 250 mls/hr IV.SIG Q12H PENDING SALE TO [facility] Last Infusion: 01/04/18 15:13 Dose: Infused Lactulose (Lactulose Liq) 30 ml PO DAILY PRN PRN Reason: SEVERE CONSITIPATION Miscellaneous Information ([facility] Ordered Lab Info) 0 each OTHER ONCE ONE Stop: 01/05/18 13:46 Ondansetron HCl (Zofran Inj) 4 mg IV.PUSH Q6H PRN PRN Reason: NAUSEA OR VOMITING Senna/Docusate Sodium (Sari-Colace) 1 tab PO BID PENDING SALE TO [facility] Last Admin: 01/04/18 08:09 Dose: Not Given Sennosides (Senokot) 17.2 mg PO Q12H PRN PRN Reason: Moderate Constipation Sodium Chloride (Ns Flush) 2 ml IV.FLUSH PRN PRN PRN Reason: FLUSH AFTER USING IV ACCESS Temazepam (Restoril) 15 mg PO HS PRN PRN Reason: INSOMNIA Last Admin: 01/03/18 22:32 Dose: 15 mg Allergies Allergy/AdvReac Type Severity Reaction Status Date / Time caffeine Allergy Severe RASH Verified 01/03/18 09:10 codeine Allergy Severe Itching Verified 01/03/18 09:10 propoxyphene Allergy Severe ABD. CRAMS Verified 01/03/18 09:10 Home Medications Medication Instructions Recorded Confirmed Type aspirin [Aspirin Low Dose] 81 mg PO DAILY 12/18/17 01/03/18 History ipratropium-albuterol 3 ml INHALATION BID 12/18/17 01/03/18 History lisinopril 20 mg PO DAILY 12/18/17 01/03/18 History Physical Exam Vital Signs - 24 hr 01/03/18 19:05 01/03/18 20:00 01/04/18 00:00 Temperature 96 F L 96.7 F L Pulse Rate 62 69 Respiratory Rate 20 20 20 Blood Pressure 115/72 112/76 Pulse Oximetry 98 97 01/04/18 02:39 01/04/18 09:44 01/04/18 11:24 Temperature 96.8 F L Pulse Rate 63 Respiratory Rate 18 16 16 Blood Pressure 131/76 Pulse Oximetry 96 01/04/18 12:58 Temperature 96.7 F L Pulse Rate 57 L Respiratory Rate 18 Blood Pressure 142/88 H Pulse Oximetry 96 Physical Exam: GENERAL: This is a well-nourished, well-developed patient, in no apparent distress. Obese SKIN: No rashes, ecchymoses or lesions. Cool and dry. HEAD: Atraumatic. Normocephalic NECK: Supple, nontender CARDIOVASCULAR: Regular rate and rhythm without murmurs, gallops, or rubs. RESPIRATORY: Clear to auscultation. Breath sounds equal bilaterally. No wheezes , rales, or rhonchi. GASTROINTESTINAL: Abdomen soft, non-tender, nondistended. GENITOURINARY: Normal testicles b/l. mild b/l hydrocele. There is mild swelling and firmness as well as induration at the perineal/scrotal junction 2.5x1cm due to a small infection/abscess. MUSCULOSKELETAL: Extremities without clubbing, cyanosis, or edema. NEUROLOGICAL: Awake and alert. Laboratory Results - last 24 hr 01/04/18 01/04/18 06:10 06:10 CBC w Diff Auto diff final WBC 5.4 RBC 4.49 L Hgb 14.9 Hct 43.2 MCV 96.3 MCH 33.1 MCHC 34.4 RDW 12.2 Plt Count 196 MPV 9.8 Neut % (Auto) 54.4 Lymph % (Auto) 31.2 [place] % (Auto) 9.1 H Eos % (Auto) 4.2 H Baso % (Auto) 1.1 Neut # (Auto) 2.9 Lymph # (Auto) 1.7 [place] # (Auto) 0.5 Eos # (Auto) 0.2 Baso # (Auto) 0.1 WBC Differential . Differential Comment . Sodium 138 Potassium 4.2 Chloride 103 Carbon Dioxide 28.7 Anion Gap 6 BUN 11 Creatinine 0.79 Estimated GFR Greater than 89 Random Glucose 98 Calcium 8.4 L Microbiology 01/03/18 11:35 Aerobic Blood Culture - Preliminary Blood - Peripheral No growth in 1 day Anaerobic Blood Culture - Preliminary No growth in 1 day 01/03/18 11:44 Aerobic Blood Culture - Preliminary Blood - Peripheral No growth in 1 day Anaerobic Blood Culture - Preliminary No growth in 1 day Result Diagrams: 01/04/18 06:10 01/04/18 06:10 Imaging: ITS Impressions Abdomen/Pelvis CT 01/03/18 11:35 CONCLUSION: 1. No evidence for abscess. Pelvis X-Ray 01/03/18 11:40 CONCLUSION: Negative examination. Soft Tissue Ultrasound 01/04/18 00:00 CONCLUSION: Small scrotal abscess. Assessment and Plan - Plan 47y.o M with scroto/perineal small abscess - Continue IV antbx as per primary team - Can consult ID to help with management -Pt refused surgical bedside drainage under local anesthesia and states that feels better. He would like to continue current management with IV antbx - no additional intervention needed now - Can add anti - inflammatory to manage pain and inflammation if not contraindicated due to his other medical issues ( Motrin 600, Indocin SR 75mf or Toradol IV/PO preferred ones) - If he will get better in a day or two can be d/c on PO antbx for 2 weeks and [facility] f[facility]u. 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 Discussed Condition With: Dr Kavitha KULKARNI attending who agrees with this plan
[2018-01-04] MEDS ORDERED: Ketorolac Inj 30 MG/ML (IVP) Vial IV.PUSH PRN (16:28)
[2018-01-04] MEDS: Temazepam 15 MG Capsule PO PRN (19:55)
--- NOTE | 2018-01-04 19:56 | ECG ---
Date Performed: 01/03/2018 Time Performed: 12:16:43 PTAGE: 47 years EKG: Sinus rhythm Since previous tracing, no significant change noted NORMAL ECG PREVIOUS TRACING : 06/28/2017 12.34 DOCTOR: Rasta Bolton Interpretating Date/Time 01/04/2018 19:54:17
[2018-01-05] MEDS: Piperacil/Tazo 3.375 GM Premix 50 ML IV.SIG SCH ×2 (00:19→05:03)
[2018-01-05 00:51] VITALS: O2SAT 98
[2018-01-05] MEDS: Vancomycin Inj 1,750 MG in Sodium Chlor 0.9% Inj 500 ML IV.SIG SCH (01:22)
[2018-01-05] MEDS: Heparin - SQ 10,000 UNITS/ML Vial SQ SCH (05:04)
[2018-01-05 09:21] VITALS: BP 136/80; PULSE 75; RESP 22; TEMP 97.1
[2018-01-05] MEDS: Senna/Docusate Sodium 8.6/50 MG Tablet PO SCH (09:34)
--- NOTE | 2018-01-05 10:22 | P.DS ---
Date of admission: 01/03/18 13:48 Primary care physician: No Primary Care Physician Anticipated date of discharge: 01/05/18 Brief History from admission: 47-year-old male with known history of hypertension, congestive heart failure, chronic affective pulmonary disease, history of migraines who returned to the hospital for evaluation of scrotal abscess, cellulitis. Patient states that he came to emergency department on Wednesday and was treated with Bactrim. Patient states that he feels if he did not get any better so he came back to the hospital for evaluation. Patient was evaluated by emergency room physician and she recommended the patient be admitted failing outpatient management. Patient did have workup done which there is no signs of any sepsis, CT scan and pelvis x -ray were performed which did not indicate any acute abnormality. Patient states that he is still having significant amount of pain radiating up into his left groin. Patient indicated that he may have noticed some blood in the toilet after he had a bowel movement. He denies any fever, chills, nausea, vomiting, shortness of breath, dyspnea. Patient update on day of discharge: Patient seen and examined, lying in bed with pain controlled. Abscess assessed , does feel a bit improved overnight. Less pain to palpation. Swelling diminished. No erythema. No drainage. Urology consulted and seen patient, patient wants to try antibiotics for now. No reports of any acute events overnight. No fever. DS: Diagnosis - Discharge Diagnosis (1) Scrotal abscess Status: Acute DS: Medications - Discharge Medications Prescriptions: doxycycline hyclate 100 mg PO BID 10 Days #20 cap hydrocodone-acetaminophen 1 tab PO Q4H PRN #10 tab PRN Reason: Pain Scale 1 To 5 ondansetron [Zofran ODT] 4 mg PO Q6-8H PRN #14 tab PRN Reason: Nausea And Vomiting DS: Summary Hospital Course: This is a 47-year-old male patient with scrotal cyst/cellulitis. Patient has already been treated with Bactrim in outpatient setting for 2 days. Patient felt he was not improving so he came back to emergency department. Patient was given vancomycin, Zosyn, clindamycin in the emergency department. Continued on IV vancomycin and Zosyn during hospitalization. Scrotal ultrasound showing small scrotal abscess. Call placed to urology, was given the option for surgical intervention, patient opted for continuing antibiotics for now as well as pain medication. Urology will be seen outpatient for follow-up. Patient does state that he feels improved and wants to try antibiotics. He was started on doxycycline and given pain medication. Patient does have a history of hypertension and congestive heart failure, normal medications are stable during hospitalization. - Time Spent with Patient Total time spent providing and/or coordinating discharge services: Greater than 30 minutes - Quality: VTE Deep Vein Thrombosis/Pulmonary Embolism Present on Admission: No Exam Vital signs: Vital Signs 01/04/18 11:24 01/04/18 12:58 01/04/18 17:15 Temperature 96.7 F L 97.2 F L Pulse Rate 57 L 61 Respiratory Rate 16 18 16 Blood Pressure 142/88 H 125/73 Pulse Oximetry 96 98 01/04/18 19:53 01/04/18 20:00 01/05/18 00:00 Temperature 96.6 F L 96.7 F L Pulse Rate 62 84 Respiratory Rate 18 Blood Pressure 135/95 H 129/88 Pulse Oximetry 99 98 01/05/18 08:00 Temperature 97.1 F L Pulse Rate 75 Respiratory Rate 22 Blood Pressure 136/80 Pulse Oximetry 98 Intake & Output 01/04/18 01/05/18 01/05/18 18:59 06:59 18:59 Intake Total 1617.5 / 1617.5 350 / 350 Output Total 400 / 400 Balance 1617.5 / 1617.5 -50 / -50 Weight 166 kg Intake: IV 617.5 / 617.5 350 / 350 Zosyn 3.375 GM Premix 50 ML @ 100 / 100 100 / 100 100 mls/hr IV.SIG Q6H MARCELA Rx#: [id number] Vancomycin Inj 1,750 MG In NS 517.5 / 517.5 250 / 250 Inj 500 ML @ 250 mls/hr IV.SIG Q12H MARCELA Rx#:[id number] Oral 1000 / 1000 Output: Urine 400 / 400 Other: # Voids 4 2 Date of Last Bowel Movement 01/03/18 01/04/18 # Bowel Movements 1 Narrative: GENERAL: Well-developed, obese with BMI 49.5, in no acute distress. alert and orientated HEENT: Head is normocephalic without any lesions or masses noted. Facial features are symmetric. Eyes: Pupils equal round reactive to light. Extraocular muscles are intact. Conjunctivae were clear. Oropharyngeal: Pharynx without any erythema edema. Tongue is midline without deviation. Buccal mucosa is moist without any masses or lesions NECK: Supple without any masses. Trachea midline no deviation. No JVD, no bruits are appreciated CARDIAC: Regular rhythm, regular rate. S1/S2 are heard. No murmurs gallops or rubs. LUNGS: Clear to auscultation bilaterally. No wheeze, rhonchi or rales. No use of accessory muscles on inspiration or expiration. ABDOMEN: Soft, nontender. Nondistended. Bowel sounds heard in all 4 quadrants. No organomegaly or masses. Negative rebound, negative guarding EXTREMITIES: No edema, pulses are equal bilaterally. No cyanosis or clubbing NEUROLOGY: Mood and affect appear appropriate. Cranial nerves II through XII grossly intact. Muscle strength 5/5 in upper and lower extremities bilaterally. Deep tendon reflexes are 2+ in upper and lower extremities bilaterally. GENITOURINARY: Erythema has improved in bilateral inguinal area. No open wounds. Underside of scrotum with granulating area, no fluctuance no exudates. Minimal pain. Improved overnight. Results Procedures completed during hospitalization: See below. Labs on day of discharge: Preliminary micro results at discharge 01/03/18 11:35 Aerobic Blood Culture - Preliminary Blood - Peripheral No growth in 1 day Anaerobic Blood Culture - Preliminary No growth in 1 day 01/03/18 11:44 Aerobic Blood Culture - Preliminary Blood - Peripheral No growth in 1 day Anaerobic Blood Culture - Preliminary No growth in 1 day - Impressions ITS Impressions Abdomen/Pelvis CT 01/03/18 11:35 CONCLUSION: 1. No evidence for abscess. Pelvis X-Ray 01/03/18 11:40 CONCLUSION: Negative examination. Soft Tissue Ultrasound 01/04/18 00:00 CONCLUSION: Small scrotal abscess. Discharge Plan - Discharge Disposition Patient Disposition: Discharge Home - Discharge Condition Condition: Stable - Discharge Order Discharge Orders: Discharge Order (Routine); Ordered 01/05/18 Ordered By: Moon Carvajal - Discharge Details Anticipated Discharge Date: 01/05/18 - Physicians Team Primary Care Provider: Primary Care Opal,Melina Attending Provider: Panchito Lyon Other Providers: Kevin Plummer MD
[2018-01-05] MEDS ORDERED: Pharmacy Ordered Lab Info OTHER ONE (13:45)
== END 2018-01-05 13:06 | disposition home or self-care (01) ==
LOC: PHED 08:59 → PHEDA 13:48 → INTOOBSV 13:48 → PHEDA 15:26 → PH3 15:27
PROVIDERS: ADMIT Internal Medicine; ATTEND Internal Medicine